=== PATIENT | female | born 2000 | race Two or more races ===

== ENCOUNTER 2020-12-10 10:23 | Outpatient (REF) | payer OTHER, SELFPAY ==
[2020-12-10 11:53] LABS: TSH reflex Free T4 1.16 uIU/mL (0.32-4.0)
[2020-12-10 12:04] LABS: Alanine Aminotransferase 25 U/L (0-31); Albumin Level 4.1 g/dL (3.5-5.0); Alkaline Phosphatase 85 U/L (39-117); Anion Gap 11 (12-20); Aspartate Amino Transferase 16 U/L (5-31); Bilirubin Total 0.6 mg/dL (0.0-1.0); Blood Urea Nitrogen 9 mg/dL (9-16); Calcium 8.9 mg/dL (8.4-10.2); Carbon Dioxide 27 mmol/L (22-29); Chloride 103 mmol/L (96-108); Cholesterol 192 mg/dL; Estimated Glomerular Filt Rate > 60; Glucose Fasting 119 mg/dL (60-99); HDL Cholesterol 41 mg/dL; LDL Cholesterol Calculated 127 mg/dl; Potassium 4.3 mmol/L (3.3-5.1); Sodium 137 mmol/L (135-145); Total Protein 7.2 g/dL (6.5-8.0); Triglycerides 122 mg/dL
== END 2020-12-10 10:24 | disposition home or self-care (01) ==
LOC: HO.HMGCLDS 10:23
PROVIDERS: PCP Nurse Practitioner Family; Visit Provider Nurse Practitioner Family
DX: Z00.00 Encounter for general adult medical examination without abnormal findings (principal)
CPT/HCPCS: 36415; 80053; 80061; 84443

== ENCOUNTER 2021-08-16 09:53 | Outpatient (REF) | payer OTHER, SELFPAY ==
[2021-08-16 18:06] LABS: HCG Quantitative 19057 mIU/mL
== END 2021-08-16 09:54 | disposition home or self-care (01) ==
LOC: HO.LAB 09:53
PROVIDERS: PCP Nurse Practitioner Family; Visit Provider Advanced Practice Midwife
DX: O26.851 Spotting complicating pregnancy, first trimester (principal); Z90.721 Acquired absence of ovaries, unilateral
CPT/HCPCS: 36415; 81025; 84702; 86850; 86900; 86901; 99212

== ENCOUNTER 2021-08-17 14:53 | Outpatient (REF) | payer OTHER, SELFPAY ==
--- NOTE | ~2021-08-17 | US_ITS ---
EXAMINATION: US OBSTETRICAL ULTRASOUND CLINICAL INFORMATION: Vomiting complicating , first trimester COMPARISON: None. LMP: 07/03/2021. Gestational age by maternal dates is 6 weeks 3 days. Estimated date of delivery by maternal dates is 04/09/2022. TECHNIQUE: Transabdominal first trimester OB ultrasound FINDINGS: There is a single intrauterine gestational sac with visible yolk sac, embryo/fetus, and cardiac activity. There is no significant subchorionic hemorrhage or hematoma. HR: 110 beats per minute. CRL (crown rump length): 0.5 cm (6 weeks 2 days +/- 4 days). MEJIA (estimated date of delivery): 04/10/2022 +/- 4 days. MATERNAL ADNEXA: The right maternal ovary has been removed. The left maternal ovary measures 2.6 x 2.3 x 2.2 cm. There is a small 1.5 x 1.1 x 1 cm left ovarian cyst There is no significant maternal adnexal mass. There is a small amount of fluid in cul-de-sac.. US/US OB pelvic and transvaginal IMPRESSION: 1. Single intrauterine gestation with ultrasound gestational age of 6 weeks 2 days +/- 4 days. 2. Estimated date of delivery is 04/10/2022 +/- 4 days. 3. No maternal adnexal mass or pelvic ascites.
== END 2021-08-17 14:54 | disposition home or self-care (01) ==
LOC: HO.US 14:53
PROVIDERS: PCP Nurse Practitioner Family; Visit Provider Advanced Practice Midwife
DX: O26.851 Spotting complicating pregnancy, first trimester (principal)
CPT/HCPCS: 76801; 76817

== ENCOUNTER → 2021-08-27 13:58 | Outpatient (BNVA) | payer OTHER, SELFPAY | PROVIDERS: PCP Nurse Practitioner Family; Visit Provider Advanced Practice Midwife ==

== ENCOUNTER 2021-09-21 15:15 | Outpatient (REF) | payer OTHER, SELFPAY ==
--- NOTE | ~2021-09-21 | US_ITS ---
EXAMINATION: US OBSTETRICAL ULTRASOUND CLINICAL INFORMATION: Spotting complicating , first trimester. COMPARISON: None. LMP: 07/03/2021. Gestational age by maternal dates is 11 weeks and 3 days. Estimated date of delivery by maternal dates is 04/09/2022. TECHNIQUE: Transabdominal ultrasound imaging of the pelvis was performed. FINDINGS: There is a single intrauterine gestational sac with visible yolk sac, embryo/fetus, and cardiac activity. There is no significant subchorionic hemorrhage or hematoma. HR: 170 beats per minute. CRL (crown-rump length): 4.41 cm ( +/- 4 days, corresponding to 11 weeks and 2 days). MEJIA (estimated date of delivery): 04/10/2022 +/- 4 days. MATERNAL ADNEXA: The right maternal ovary was surgically removed. The left maternal ovary was surgically removed. There is no significant maternal adnexal mass. No maternal pelvic ascites. US/US OB <= 14 weeks fetus IMPRESSION: 1. Single live intrauterine gestation with ultrasound gestational age of 11 weeks, 2 days +/- 4 days. 2. Estimated date of delivery is 04/10/2022 +/- 4 days. 3. No maternal adnexal mass or pelvic ascites.
== END 2021-09-21 15:16 | disposition home or self-care (01) ==
LOC: HO.US 15:15
PROVIDERS: PCP Nurse Practitioner Family; Visit Provider Advanced Practice Midwife
DX: O26.851 Spotting complicating pregnancy, first trimester (principal)
CPT/HCPCS: 76801

== ENCOUNTER 2022-07-07 09:36 | Emergency (ER) | payer OTHER, SELFPAY ==
--- NOTE | ~2022-07-07 | CT_ITS ---
EXAMINATION: CT ABDOMEN AND PELVIS WITHOUT CONTRAST CLINICAL INFORMATION: Right-sided flank pain COMPARISON: None TECHNIQUE: Multidetector volumetric imaging was performed from the superior aspect of the liver through the pubic symphysis. Sagittal and coronal reformatted images were obtained on the technologist's workstation. This CT examination was performed using dose optimization techniques as appropriate, variously including the following: *Automated exposure control *Adjustment of mA and/or kV according to patient size (this includes techniques or standardized protocols for targeted exams where dose is matched to indication/reason for exam; i.e. extremities or head) *Use of iterative reconstruction technique DLP: 755 mGy-cm FINDINGS: LUNG BASES: The visualized lung bases are unremarkable. LIVER, GALLBLADDER, AND BILIARY TREE: The liver is mildly enlarged at 18 cm and demonstrates decreased attenuation consistent with hepatic steatosis. No focal hepatic lesion or biliary ductal dilatation is present. The gallbladder is unremarkable with no evidence of radiopaque gallstones, gallbladder wall thickening, or obvious pericholecystic inflammatory changes. PANCREAS: Unremarkable. SPLEEN: Spleen mildly enlarged at 12.8 cm in greatest transverse dimension. ADRENAL GLANDS: Unremarkable. KIDNEYS AND URETERS: There is an 9 x 4 x 6 mm obstructing right distal ureteral calculus with associated dilatation of the ureter and right intrarenal collecting system. This stone measures 1272 Hounsfield units. Perinephric stranding is present around the kidney and ureter. There is a 2 mm lower pole nonobstructing calyceal stone on the right with no other stones are seen in the right kidney. No right renal masses are present. On the left, there is at least one punctate 2 mm nonobstructing mid pole calculus present. No left-sided hydronephrosis, ureteral calculi or renal masses are seen. BLADDER: Unremarkable. GASTROINTESTINAL TRACT: The small and large bowel are unremarkable. The appendix is unremarkable. ABDOMINAL WALL: No significant hernia is appreciated. LYMPH NODES: Shotty retroperitoneal lymph nodes are seen but there is no adenopathy. VASCULAR: Unremarkable. PELVIC VISCERA: Unremarkable. OSSEOUS STRUCTURES: Unremarkable. CT/CT abdomen pelvis wo IV con IMPRESSION: * 9 x 4 x 6 mm distal right obstructing calculus with hydronephrosis. * Punctate nonobstructing calculi bilaterally. * Incidentally noted mildly enlarged fatty liver with mild splenomegaly. Fleischner guidelines were followed.
[2022-07-07 09:38] VITALS: BP 149/82; PULSE 100; RESP 18; TEMP 36.9; O2SAT 98; BMI 39.9
[2022-07-07 10:03] LABS: Appearance Urine Clear; Color Urine Yellow; Glucose Urine UA Negative (Negative); Leukocyte Esterase Urine Moderate (2+) (Negative); Nitrite Urine Negative (Negative); Specific Gravity - Urine >= 1.030 (1.005-1.025); UMIC TRIGGER UACC YES; Urine Blood Negative (Negative); Urine Ketones Negative (Negative); Urine Protein Trace mg/dL (Neg-Trace)
[2022-07-07 10:05] LABS: UPreg QC Valid YES; Urine Pregnancy NEGATIVE (NEGATIVE)
[2022-07-07 10:06] LABS: Bacteria Urine 1+ (None Seen); Hyaline Casts Urine 0-2 /LPF (0-2); UACC Culture Trigger YES
--- NOTE | 2022-07-07 15:10 | ED.FEMALEGU ---
HPI - Female Genitourinary General Chief complaint: Urogenital-Female Stated complaint: Kidney Stone pain Time Seen by Provider: 07/07/22 12:58 Source: patient Mode of arrival: ambulatory Limitations: no limitations History of Present Illness HPI Narrative: 21-year-old female presenting with intermittent right flank pain since last night. Patient also reporting nausea, and urinary frequency and hesitancy, denies dysuria, hematuria. Patient states the pain started suddenly last night, is intermittent and severe. Patient has history of kidney stones 3 months ago while she was 35 weeks , leading to hospitalization and induction of labor. Multiple stones were noted on CT scan at that time. Patient receive another CT scan 1 month ago for similar symptoms where a 7 mm stone was noted. Symptoms had resolved since then. Reports taking 1 g of Tylenol this morning which has helped manage her pain. Denies headache, dizziness, chest pain, shortness breath, cough, nausea, vomiting, diarrhea, weakness, change in appetite. Patient is currently . MD elicited complaint: flank pain Onset (ago): hour(s) Location of symptoms: flank Severity: severe Female Urogenital Radiation: R Flank Severity scale (1-10): 9 Quality of pain: sharp Consistency: intermittent Urinary symptoms: Frequency Exacerbating factors: none Associated symptoms: nausea Treatment prior to arrival: acetaminophen Sexual activity: Yes Patient : No Related Data Previous Rx's Medication Instructions Recorded vitamin with calcium 1 tab PO DAILY PRN VITAMIN #30 tabs 08/16/21 no.72-iron 27 mg-folic acid 1 mg tablet ( Vitamins Plus Low Iron) omeprazole 20 mg capsule,delayed 20 mg PO DAILY 90 days #90 caps 04/19/22 release alprazolam 0.25 mg tablet 0.25 mg PO BEDTIME PRN sleep #5 05/12/22 tabs ketorolac 10 mg tablet 10 mg PO Q8H #14 tabs 07/07/22 nitrofurantoin 100 mg PO BID 7 days #14 caps 07/07/22 monohydrate/macrocrystals 100 mg capsule (Macrobid) ondansetron 4 mg disintegrating 4 mg PO Q8H #14 tabs 07/07/22 tablet oxycodone 5 mg tablet 5 mg PO Q6H PRN pain #14 tabs 07/07/22 Allergies Allergy/AdvReac Type Severity Reaction Status Date / Time No Known Allergies Allergy Verified 04/19/22 11:57 Review of Systems Review of Systems: Constitutional : No Fever, No Chills, No Night Sweats, No Fatigue, No Malaise Cardiovascular : No Chest Pain, No SOB Respiratory : No Cough, No Sputum, No Wheezing, No Dyspnea Gastrointestinal : + Nausea, No Vomiting, No Diarrhea, + abdominal Pain, No Hematochezia, No Melena Genitourinary : + flank pain, No irregular bleeding, No Dysuria, + Urinary Frequency, No Hematuria, No Urinary Incontinence Musculoskeletal : No joint pain, No Myalgias, No Joint Swelling Skin : No Skin Lesions, No rash Neuro : No Weakness, No Numbness, No Paresthesias, No Loss of Consciousness, No Dizziness, No Headache Heme/Lymph: No Lymphadenopathy Endocrine : No Temperature Intolerance Yes all other systems are reviewed and are negative [facility] Past Medical History Attestation statement: The following information was validated with the patient. Source: old records reviewed, obtained from family and nursing notes reviewed Medical History Prediabetes Renal calculi Surgical History History of oophorectomy, unilateral No pertinent past surgical history Family History Family History Father No problems noted. Mother No problems noted. Paternal Grandmother Breast cancer Social History Social History Housing: Apartment Alcohol intake: never Patient Tobacco Use Status: Never used Tobacco e-Cigarette/Vaping Use: Never Used Second Hand Smoke Exposure: No Advance Directives: No Advance Directives Information Provided: No Patient : No service: No Current occupational status: employed Current occupation: [employer] Current occupational exposures/hazards: No Cognitive needs: No Hearing needs: No Vision needs: No Physical Exam Vital Signs: Vital Signs: Last Vital Signs Temp 98.4 F 07/07/22 09:38 Pulse 100 07/07/22 09:38 Resp 18 07/07/22 09:38 BP 149/82 H 07/07/22 09:38 Pulse Ox 98 07/07/22 09:38 O2 Del Method 09/15/22 09:38 BMI result Body Mass Index 39.9 vital signs have been reviewed as normal and appeared to be correct. Blood pressure 149/82. Heart rate normal. Respiration rate normal. Temperature normal. Oxygen saturation normal. Appearance: Alert. Oriented X3. No acute distress. Head: Normal external exam. Normocephalic. Eyes: PERRLA. EOMI. Conjunctiva and sclera normal. Eyelids normal. ENT: Pharynx normal. Moist mucous membranes. No trismus noted. No drooling noted. No muffled voice noted. Neck: Normal inspection. Neck supple. FROM. No adenopathy. No meningeal signs. CVS: Normal heart rate and rhythm. Heart sound normal. No murmurs noted. Pulses normal throughout. Respiratory: No respiratory distress. Painless inspiration. Breath sounds normal. No wheezes/rales/rhonchi noted. Chest nontender. No accessory muscle usage noted or decreased air movement noted. Abdomen: +right flank tenderness to deep palpation. Soft and nontender. Nondistended. No guarding. No rigidity. Bowel sounds normal in all 4 quadrants. No distention noted. No organomegaly noted. No visible injury noted. No rebound tenderness. Negative Rovsing sign. Negative obturator's sign. Negative psoas sign. Negative Fishman sign. Back: No CVA tenderness. Full range of motion noted. Skin: Skin warm and dry. Normal skin color. Normal skin turgor. No rashes/lesions/lacerations noted. Extremities: Extremities exhibit normal range of motion. Extremities nontender. Neuro: Oriented X 3. No motor deficit. No sensory deficit. Reflexes normal. Normal steady gait. CN's II-XII intact bilaterally? Course Course Course Narrative: 21-year-old female with PMH of nephrolithiasis presenting with intermittent right flank pain since last night with associtated nausea and urinary frequency and hesitancy. On exam, patient afebrile, VSS, tender to deep palpation on right flank however no CVA tenderness. UA significant for specific gravity 1.030, moderate leuk esterase, high RBC, high WBC. Consistent with urinary tract infection. CT abdomen pelvis wo IV con IMPRESSION: 9 x 4 x 6 mm distal right obstructing calculus with hydronephrosis. *? Punctate nonobstructing calculi bilaterally. *? Incidentally noted mildly enlarged fatty liver with mild splenomegaly. Urology consult at after findings of CT abdomen pelvis showed large obstructing calculus with hydronephrosis. Reevaluation(s) Reevaluation #1: - I discussed this case with Dr. Guzman he reported that the patient can go home although she would have to stay NPO after midnight. He reports that his office will call her tomorrow morning so we can do a procedure tomorrow afternoon. Although he also recommended if she was having pain issues we could admit. I did offer both to the patient patient would rather go home. Reports that her pain is in control with Motrin and Tylenol. She has kids at home that she would rather just go home to. She reports that she will stay NPO after midnight and she will await the call from Dr. Guzman's office. Will also send home with antibiotics for UTI. I explained to her that if she is not on any narcotics or any antibiotics taken past into her breast milk therefore I explained to her that she should not do any breast feeding for the next 1-2 weeks. She reports that that is fine. Otherwise instructed to return if any new or worsening symptoms and to await the call from Dr. Guzman tomorrow morning to stay NPO at midnight. Patient understands agrees with this plan. Time: 16:02 MDM - Female Genitourinary Medical Records Attestation: I reviewed the patient's medical records. Lab Data Attestation: I reviewed the patient's lab results. Labs: Lab Results 07/07/22 07/07/22 Range/Units 09:48 09:48 Urine Color Yellow Urine Appearance Clear Urine pH 7.0 (5.0-9.0) Ur Specific [place] >= 1.030 H (1.005-1.025) Urine Protein Trace (Neg-Trace) mg/dL Urine Glucose (UA) Negative (Negative) mg/dL Urine Ketones Negative (Negative) mg/dL Urine Blood Negative (Negative) Urine Nitrite Negative (Negative) Ur Leukocyte Esterase Moderate (2+) H (Negative) Urine RBC 3-5 H (0-2) /HPF Urine WBC 11-20 H (0-5) /HPF Ur Squamous Epith Cells 6-10 (0-2) /HPF Urine Bacteria 1+ (None Seen) Hyaline Casts 0-2 (0-2) /LPF Urine Test NEGATIVE (NEGATIVE) Imaging Data CT scan of abdomen and pelvis without IV contrast: Attestation: I personally reviewed and interpreted this imaging study as follows: Radiologist's impression: FINDINGS: LUNG BASES: The visualized lung bases are unremarkable.? LIVER, GALLBLADDER, AND BILIARY TREE: The liver is mildly enlarged at 18 cm and demonstrates decreased attenuation consistent with hepatic steatosis. No focal hepatic lesion or biliary ductal dilatation is present. The gallbladder is unremarkable with no evidence of radiopaque gallstones, gallbladder wall thickening, or obvious pericholecystic inflammatory changes.? PANCREAS: Unremarkable.? SPLEEN: Spleen mildly enlarged at 12.8 cm in greatest transverse dimension.? ADRENAL GLANDS: Unremarkable.? KIDNEYS AND URETERS: There is an 9 x 4 x 6 mm obstructing right distal ureteral calculus with associated dilatation of the ureter and right intrarenal collecting system. This stone measures 1272 Hounsfield units. Perinephric stranding is present around the kidney and ureter. There is a 2 mm lower pole nonobstructing calyceal stone on the right with no other stones are seen in the right kidney. No right renal masses are present. On the left, there is at least one punctate 2 mm nonobstructing mid pole calculus present. No left-sided hydronephrosis, ureteral calculi or renal masses are seen.? BLADDER: Unremarkable.? GASTROINTESTINAL TRACT: The small and large bowel are unremarkable. The appendix is unremarkable.? ABDOMINAL WALL: No significant hernia is appreciated.? LYMPH NODES: Shotty retroperitoneal lymph nodes are seen but there is no adenopathy. VASCULAR: Unremarkable. PELVIC VISCERA: Unremarkable.? OSSEOUS STRUCTURES: Unremarkable.? CT/CT abdomen pelvis wo IV con IMPRESSION: *? 9 x 4 x 6 mm distal right obstructing calculus with hydronephrosis. *? Punctate nonobstructing calculi bilaterally. *? Incidentally noted mildly enlarged fatty liver with mild splenomegaly. ? Fleischner guidelines were followed. Critical Care Time Critical Care Time Critical Care Time: Yes Total Critical Care Time: 60 Attestation: I personally attest to this time spent taking care of the patient Discharge Plan Discharge Clinical Impression: Calculus (=stone), Hydronephrosis, UTI (urinary tract infection) Patient Disposition: Home, Self-Care Instructions: Kidney Stones (ED), Hydronephrosis (ED) Additional Instructions: STAY WITHOUT EATING ANYTHING STARTING AT MIDNIGHT TONIGHT 07/07/2022 DR. GUZMAN'S OFFICE WILL CALL YOU TOMORROW TO DO SURGERY AN OUTPATIENT BASIS Prescriptions: New oxycodone 5 mg tablet 5 mg PO Q6H PRN (Reason: pain) Qty: 14 0RF Rx Instructions: Partial Fill upon patient request. nitrofurantoin monohyd/m-cryst [Macrobid] 100 mg capsule 100 mg PO BID 7 Days Qty: 14 0RF Rx Instructions: must administer with a meal/food ketorolac 10 mg tablet 10 mg PO Q8H Qty: 14 0RF Rx Instructions: First dose given in the ED are by IM patient tolerated well ondansetron 4 mg tablet,disintegrating 4 mg PO Q8H Qty: 14 0RF No Action alprazolam 0.25 mg tablet 0.25 mg PO BEDTIME PRN (Reason: sleep) Qty: 5 0RF omeprazole 20 mg capsule,delayed release(DR/EC) 20 mg PO DAILY 90 Days Qty: 90 0RF Vitamin Plus Low Iron 27 mg iron- 1 mg tablet 1 tab PO DAILY PRN (Reason: VITAMIN) Qty: 30 1RF Referrals: Sathya Guzman MD [Physician] - 1 day (STAY WITHOUT EATING ANYTHING STARTING AT MIDNIGHT TONIGHT 07/07/2022 DR. GUZMAN'S OFFICE WILL CALL YOU TOMORROW TO DO SURGERY AN OUTPATIENT BASIS ) Ignacio Bravo, [employer]- [Primary Care Provider] - 2 days Stand Alone Forms: Work/School Release Print Language: Bangladeshi
[2022-07-07] MEDS: Ketorolac Tromethamine 60 MG/2 ML VIAL IM (16:48)
== END 2022-07-07 18:02 | disposition home or self-care (01) ==
PROVIDERS: Emergency Provider Emergency Medicine; PCP Nurse Practitioner Family
DX: N20.0 Calculus of kidney (principal); N13.30 Unspecified hydronephrosis; N39.0 Urinary tract infection, site not specified; Z79.899 Other long term (current) drug therapy
CPT/HCPCS: 74176; 81001; 81003; 81025; 87086; 96372; 99284; J1885

== ENCOUNTER 2022-07-08 15:27 | Day surgery (SDC) | payer OTHER, SELFPAY ==
--- NOTE | ~2022-07-08 | FL_ITS ---
EXAMINATION: XR FLUOROSCOPY WITH IMAGES CLINICAL INFORMATION: Right hydronephrosis and hydroureter secondary to distal right ureteral calculus. COMPARISON: CT abdomen and pelvis noncontrast 07/07/2022 TECHNIQUE: Fluoroscopy performed by Dr. Sathya Guzman. Fluoroscopy time: 29 seconds. Cumulative Dose: 11.65 mGy. Images: 2. FINDINGS: There is contrast in the lower right ureter with a small oval intraluminal filling defect corresponding to the distal ureteral calculus on CT. No extravasation of contrast. Subsequent fluoroscopic view demonstrates distal end of a right ureteral stent. FL/FL guidance in OR IMPRESSION: Fluoroscopy for urologic procedure.
[2022-07-08 15:45] VITALS: BP 141/82; PULSE 98; RESP 18; TEMP 37.1; O2SAT 98
--- NOTE | 2022-07-08 15:47 | HO.ANESPROP2 ---
[facility] Active Problems Active Problems: All Active Problems (Updated 07/08/22 @ 00:01 by Rosibel Lanny) Gestational diabetes mellitus (Acute) Upper respiratory tract infection (Acute) Spotting affecting in first trimester (Acute) High risk due to history of previous obstetrical problem (Acute) (Acute) Elevated fasting blood sugar (Acute) Physical exam (Acute) Past Medical History Medical History Prediabetes Renal calculi Family History Family History Father No problems noted. Mother No problems noted. Paternal Grandmother Breast cancer Surgical History Surgical History History of oophorectomy, unilateral No pertinent past surgical history History of Problems with Anesthesia: No Social History Social History Housing: Apartment Alcohol intake: never Patient Tobacco Use Status: Never used Tobacco e-Cigarette/Vaping Use: Never Used Second Hand Smoke Exposure: No Use of substances other than those prescribed or required for medical reasons: No Are you DNR?: No Advance Directives: No Advance Directives Information Provided: Yes Patient : No : Yes service: No Current occupational status: employed Current occupation: [employer] Current occupational exposures/hazards: No Cognitive needs: No Hearing needs: No Vision needs: No Meds Allergies Allergy/AdvReac Type Severity Reaction Status Date / Time No Known Allergies Allergy Verified 04/19/22 11:57 Exam Exam Date and Time: July 08, 2022 1547 Airway Mallampati Class: II TM Dist: >3cm Neck ROM: Full Loose/Missing/Broken Teeth: No Heart: RRR Lungs: CTA Assessment and Plan Assessment Anesthesia Assessment: Anesthesia Plan Discussed and Chart Reviewed Final Anesthetic Review History of Problems with Anesthesia: No NPO: Yes ASA Class: II and III Final Preanesthetic Review: Meds/Allgs Chart Reviewed, Consent Obtained/Reviewed and Anes Risks/Benef Reviewed Patient Risk: Low Procedure Risk: Low Anesthetic Plan Anesthetic Plan: GA Disposition: Standard PACU
[2022-07-08 15:50] VITALS: BMI 39.9
--- NOTE | 2022-07-08 16:27 | PM.UROCN ---
History of Present Illness Consult details Consult date: 07/07/22 Narrative: Consulting complaint distal right ureteric stone 21-year-old female Presents to emergency room with right-sided flank pain Had previous investigation for stones when approximately 3-4 months ago Had been told she had stones and then on subsequent follow-up imaging had been told the stone had passed Re onset of right-sided flank pain with nausea in the past day Imaging - There is an 9 x 4 x 6 mm obstructing right distal ureteral calculus with associated dilatation of the ureter and right intrarenal collecting system. CT scan reviewed personally Large stone distal portion right ureter Discussed intervention with ureteroscopy, laser lithotripsy and stent placement She is aware the risks and benefits and would like to proceed Review of Systems Constitutional: Constitutional: Denies chills and Denies fever(s) Cardiovascular: Cardiovascular: Reports no additional cardiovascular complaints and Denies syncope Respiratory: Respiratory: Denies cough Gastrointestinal: Gastrointestinal: Denies abdominal pain and Denies heartburn Genitourinary: Genitourinary: Reports as per HPI and Denies change in libido Neurologic: Denies syncope Psychiatric: Psychiatric: Denies change in libido Endocrine: Endocrine: Denies change in libido [facility] Past Medical History Medical History Prediabetes Renal calculi Family History Family History Father No problems noted. Mother No problems noted. Paternal Grandmother Breast cancer Surgical History Surgical History History of oophorectomy, unilateral No pertinent past surgical history Social History Social History Housing: Apartment Alcohol intake: never Patient Tobacco Use Status: Never used Tobacco e-Cigarette/Vaping Use: Never Used Second Hand Smoke Exposure: No Use of substances other than those prescribed or required for medical reasons: No Are you DNR?: No Advance Directives: No Advance Directives Information Provided: Yes Patient : No : Yes service: No Current occupational status: employed Current occupation: [employer] Current occupational exposures/hazards: No Cognitive needs: No Hearing needs: No Vision needs: No Meds Allergies Allergy/AdvReac Type Severity Reaction Status Date / Time No Known Allergies Allergy Verified 04/19/22 11:57 Active Medications: Current Medications Acetaminophen (Acetaminophen 325 Mg Tablet) 650 mg PO ONCE PRN PRN Reason: Pain, Mild (Pain Scale 1-3) Albuterol Sulfate (Albuterol Sulfate (0.083%) 2.5 Mg/3 Ml Vial.Neb) 2.5 mg INHALE ONCE PRN PRN Reason: Wheezing Fentanyl (Fentanyl Citrate/Pf 100 Mcg/2 Ml Vial) 25 mcg IVPUSH Q5M PRN; Protocol PRN Reason: Pain, Moderate (Pain Scale 4-6 Ondansetron HCl (Ondansetron Hcl 4 Mg/2 Ml Vial) 4 mg IVPUSH ONCE PRN PRN Reason: Nausea and Vomiting Oxycodone HCl (Oxycodone Hcl Immed Release 5 Mg Tablet) 5 mg PO ONCE PRN PRN Reason: Pain, Severe (Pain Scale 7-10) Physical Exam Vital Signs: Vital Signs: Last Vital Signs Temp 98.7 F 07/08/22 15:45 Pulse 98 07/08/22 15:45 Resp 18 07/08/22 15:45 BP 141/82 H 07/08/22 15:45 Pulse Ox 98 07/08/22 15:45 O2 Del Method 07/08/22 15:45 BMI result Body Mass Index 39.9 Const: General: cooperative, healthy appearing, comfortable and no acute distress Orientation/consciousness: patient oriented x3 HEENT: Face and sinus: Yes normal facial exam Mouth: moist mucous membranes Neck: Neck: Yes normal visual inspection, Yes full ROM and Yes trachea midline Chest: Chest palpation & inspection: normal inspection of the chest Resp: Effort & Inspection: normal respiratory effort, able to speak in complete sentences and no respiratory distress GI: Inspection: Yes normal to inspection Back/Spine/Pelvis: Cervical Spine: normal cervical lordosis Thoracic/Lumbar Spine: thoracic and lumbar spine normal to inspection Skin: General skin exam: no rashes or lesions noted Neuro: General: patient oriented x3, gait normal, tone normal and moves all extremities Extrem: General: Yes normal to inspection and Yes capillary refill normal Results Labs Labs: All other labs normal. Assessment and Plan (1) Right distal ureteral calculus: Status: Acute Plan Ureteroscopy We discussed the nature of the decision and reasonable alternatives for performing ureteroscopy. Options such as medical therapy were discussed. Interventions include chemical dissolution, ESWL, ureteroscopy with laser lithotripsy and stent placement, PCNL. The relative uncertainties and benefits related to each alternate procedure were adequately discussed. General surgical risks including, but not limited to - pain, bleeding, infection, myocardial infarction, pulmonary embolus, deep vein thrombosis and cerebrovascular accident which may result in further hospitalization were discussed. Full disclosure of the procedure as well as all major risks, benefits and complications were discussed including but not limited to damage to the urethra, bladder and kidney infection, damage to the ureter, stent migration or malposition, scarring to the renal pelvis, remnant stone fragments, subsequent stone passage with need for secondary procedures. The overall secondary procedure rate is approximately 10-15%. The overall clearance rate is approximately 90-95%. Success of the procedure in the short-term does not necessarily guarantee that long-term success will be maintained. Suitable follow up will need to be maintained. The patient showed understanding of discussion and wishes to proceed with - cystoscopy, retrograde, ureteroscopy, possible lithotripsy/stone basketing and stent on the right side Procedures Date of Service Date of Service: 07/07/22
--- NOTE | 2022-07-08 16:30 | P.HPSUR_ITS ---
Pre-Procedural Eval Section A Date of Service: 07/08/22 The patient is an INPATIENT: No Changes since office visit: No Cold of Flu in the past 2 weeks, No New Medical Problems, No Changes in Medication and No Patient answered all questions The History & Physical has been completed within 30 days and I have reviewed it.: Yes Section B Chief Complaint: Calculus of kidney Details of Present Illness: Distal right ureteric stone Relevant Family History (Specify if Yes): No Relevant Social History: None Present Medications: see Short Stay Collaborative assessment Medical History: No relevant PMH History of Previous Operations: No relevant previous surgery Allergies: Allergies Allergy/AdvReac Type Severity Reaction Status Date / Time No Known Allergies Allergy Verified 04/19/22 11:57 Review of Systems Sugical H&P ROS: Negative: Constitution, Cardiovascular, Respiratory, Neurological, Psychiatric, Hem-Onc, Allergic/Immunologic, Gastrointestinal, Genitourinary, Musculoskeletal, Integumentary, Endocrine and Eyes/Ears/Nose/Throat Exam Surgical H&P Exam: Normal: HEENT, Normal: Heart, Normal: Lungs, Normal: Ex tremities, Normal: Abdomen, Normal: Skin and Normal: Neurological Plan Diagnosis/Plan: Unchanged (Right retrograde right ureteroscopy with laser lithot ripsy and stent placement) I have reviewed the history and physical and performed a pertinent physical examination on my patient. No changes have occurred unless specified.
--- NOTE | 2022-07-08 17:24 | W.PM.OPN ---
Operative Note Operative Note Date of Service: 07/08/22 Narrative: PreOperative Diagnosis: Right distal ureter impacted stone Post Operative Diagnosis: Right distal ureteric impacted stone Procedure: - cystoscopy, right retrograde - right dilatation of ureteric orifice under fluoroscopy - right rigid ureteroscopy, laser lithotripsy, stone basketing - right stent placement Surgeon: Dr Sathya Guzman Anesthesia: General Indications for procedure: Impacted 9 mm distal right ureteric stone. Previous evaluation with other urology who had told her the stone had passed. She presented to emergency room with pain in on CT scan was found to have an impacted right distal ureteric stone with hydroureteronephrosis. Procedure: After informed consent was verified patient was brought to the operating placed in supine position. Anesthesia was administered per protocol. Patient was placed in modified dorsal lithotomy position and prepped and draped in a sterile fashion. Safety pause time-out and side of surgery confirmed. Antibiotics confirmed. 22 [place] cystoscope was inserted per urethra. Bladder was normal in its entirety. Both ureteric orifices were in normal position. The right ureteric orifice was cannulated and a retrograde examination was performed. Filling defects seen in right distal ureter with proximal hydroureteronephrosis . A Sensor guidewire was placed up to the level of the renal pelvis under fluoroscopy. The rigid cystoscope was removed and a Lauren dilator used to dilate the right ureter under fluoroscopy. The rigid ureteral scope was placed alongside the wire. The stone was encountered in the distal portion of the ureter and had been imbedded into the wall of the ureter. Using a holmium laser the stone was broken into small pieces. Using a sure catch basket stone fragments were then removed into the bladder and for sampling. A 6 [place] African by 22 cm double-J stent was placed into the renal pelvis and bladder under a combination of fluoroscopy and direct visualization. The bladder was emptied. The patient tolerated the procedure well and was extubated in the operating room, and transferred in stable condition to the recovery area. Pathology: Stones Drains: Stent is above
[2022-07-08 17:34] VITALS: BP 135/85; PULSE 108; RESP 16; TEMP 36.9; O2SAT 100
[2022-07-08 17:39] VITALS: BP 116/78; PULSE 101; RESP 16; O2SAT 99
[2022-07-08 17:44] VITALS: BP 147/79; PULSE 105; RESP 16; O2SAT 99
[2022-07-08 17:49] VITALS: BP 125/74; PULSE 102; RESP 16; TEMP 36.4; O2SAT 99
[2022-07-08 18:04] VITALS: BP 119/58; PULSE 96; RESP 16; O2SAT 98
--- NOTE | 2022-07-08 18:29 | PC.NURSE ---
OOB DRESSING AT BEDSIDE. TO BATHROOM TO VOIDX1. NO COMPLAINTS OF NAUSEA.
[2022-07-14 11:32] LABS: Stone Source RIGHT URETERAL STONE
== END 2022-07-08 18:30 | disposition home or self-care (01) ==
PROVIDERS: PCP Nurse Practitioner Family; Visit Provider Urology
PROC: (CPT 52356; principal; 2022-07-08 16:30)
DX: N20.1 Calculus of ureter (principal); Z87.442 Personal history of urinary calculi; R73.03 Prediabetes; Z79.899 Other long term (current) drug therapy
CPT/HCPCS: 52356; 82365; 88300; C1758; C1769; C2617; J1100; J1956; J2250; J2405; J3010; Q9967

== ENCOUNTER → 2022-07-15 10:57 | Outpatient (BNVA) | payer OTHER, SELFPAY | PROVIDERS: PCP Nurse Practitioner Family; Visit Provider Urology | DX: N20.0 Calculus of kidney (principal) | CPT/HCPCS: 52310 ==

== ENCOUNTER 2022-11-05 09:39 | Outpatient (REF) | payer OTHER, SELFPAY ==
[2022-11-05 11:09] LABS: MANUAL DIFF FLAG NO
[2022-11-05 11:11] LABS: Appearance Urine Clear; Color Urine Yellow; Glucose Urine UA Negative (Negative); Leukocyte Esterase Urine Small (1+) (Negative); Nitrite Urine Negative (Negative); Specific Gravity - Urine 1.025 (1.005-1.025); UMIC TRIGGER UACC YES; Urine Blood Negative (Negative); Urine Ketones Negative (Negative); Urine Protein Negative (Neg-Trace)
[2022-11-05 11:16] LABS: Basophils Percent Auto 0.6 % (0-2); Eosinophils Absolute Auto 0.1 X10*3/uL (0.0-0.4); Eosinophils Percent Auto 1.8 % (0-4); Hematocrit 39.8 % (37.0-47.0); Imm Gran Abs Auto 0.01 X10*3/uL (0.00-0.03); Imm Gran Pct Auto 0.2 % (0.0-0.4); Lymphocytes Absolute Auto 2.2 X10*3/uL (1.2-4.9); Lymphocytes Percent Auto 32.9 % (20-40); Mean Corpuscular HGB Conc 32.7 g/dl (31.0-35.0); Mean Corpuscular Hemoglobin 28.3 pg (27.0-33.0); Mean Corpuscular Volume 86.7 fL (80.0-98.0); Mean Platelet Volume 10.3 fL (9.4-12.3); Monocytes Absolute Auto 0.4 X10*3/uL (0.1-1.2); Monocytes Percent Auto 5.6 % (2-11); Neutrophils Absolute Auto 3.9 x10*3/uL (2.0-8.3); Neutrophils Percent Auto 58.9 % (45-73); Platelet Count 324 X10*3/uL (160-400); Red Blood Count 4.59 X10*6/uL (4.20-5.50); Red Cell Distribution Width 11.7 % (11.0-16.0); White Blood Count 6.7 X10*3/uL (4.8-10.8)
[2022-11-05 11:17] LABS: Bacteria Urine Trace (None Seen); Hyaline Casts Urine 0-2 /LPF (0-2); RBC Urine 0-2 /HPF (0-2); UACC Culture Trigger YES; WBC Urine 0-5 /HPF (0-5)
[2022-11-05 11:32] LABS: Estimated Average Glucose 137 mg/dL; Hemoglobin A1c % 6.4 %
[2022-11-05 11:42] LABS: Alanine Aminotransferase 17 U/L (0-31); Albumin Level 4.1 g/dL (3.5-5.0); Alkaline Phosphatase 96 U/L (39-117); Anion Gap 10 (12-20); Aspartate Amino Transferase 14 U/L (5-31); Bilirubin Total 0.4 mg/dL (0.0-1.0); Blood Urea Nitrogen 12 mg/dL (9-16); Calcium 9.4 mg/dL (8.4-10.2); Carbon Dioxide 28 mmol/L (22-29); Chloride 105 mmol/L (96-108); Cholesterol 179 mg/dL; Estimated Glomerular Filt Rate > 60; Glucose Fasting 122 mg/dL (60-99); HDL Cholesterol 46 mg/dL; LDL Cholesterol Calculated 115 mg/dl; Potassium 4.1 mmol/L (3.3-5.1); Sodium 139 mmol/L (135-145); Total Protein 7.4 g/dL (6.5-8.0); Triglycerides 92 mg/dL
[2022-11-05 11:48] LABS: Influenza A PCR NEGATIVE (Negative); Influenza B PCR NEGATIVE (Negative); Resp Syncy Virus RNA Qual PCR NEGATIVE (Negative); SARS COV2 PCR INHOUSE NEGATIVE (Negative)
[2022-11-05 12:02] LABS: TSH reflex Free T4 0.66 uIU/mL (0.32-4.0)
== END 2022-11-05 09:40 | disposition home or self-care (01) ==
LOC: HO.HMGCLDS 09:39
PROVIDERS: Physician Assistant Medical; PCP Nurse Practitioner Family; Visit Provider Nurse Practitioner Family
DX: O24.419 Gestational diabetes mellitus in pregnancy, unspecified control (principal); O26.899 Other specified pregnancy related conditions, unspecified trimester; R05.9 Cough, unspecified
CPT/HCPCS: 0241U; 36415; 80053; 80061; 81001; 83036; 84443; 85025; 87086

== ENCOUNTER 2022-11-21 08:17 | Outpatient (REF) | payer OTHER, SELFPAY ==
--- NOTE | ~2022-11-21 | US_ITS ---
EXAMINATION: US RETROPERITONEAL LIMITED (RENAL ONLY) CLINICAL INFORMATION: Calculus of kidney. COMPARISON: CT abdomen and pelvis without contrast 07/07/2022. TECHNIQUE: Real-time imaging of the kidneys. FINDINGS: RIGHT KIDNEY: 10.4 x 5.5 x 5.5 cm (SAG x AP x TRV). The kidney is normal in size, contour, and echogenicity. Renal cortical thickness is normal. No focal parenchymal lesions or hydronephrosis. The previously seen hydronephrosis caused by an obstructing distal ureteral calculus is no longer present. There is a mid pole 4 mm echogenic focus consistent with a nonobstructing calculus. LEFT KIDNEY: 11.3 x 5.4 x 5.0 cm (SAG x AP x TRV). The kidney is normal in size, contour, and echogenicity. Renal cortical thickness is normal. No focal parenchymal lesions or hydronephrosis. There is a mid pole 2 mm echogenic focus consistent with a nonobstructing calculus. US/US renal BI IMPRESSION: Bilateral nonobstructing renal calculi. Similar findings were present on the prior CT scan. Resolved right-sided hydronephrosis.
== END 2022-11-21 08:18 | disposition home or self-care (01) ==
LOC: HO.HMGCX 08:17
PROVIDERS: PCP Nurse Practitioner Family; Visit Provider Urology
DX: N20.0 Calculus of kidney (principal)
CPT/HCPCS: 76775

== ENCOUNTER → 2022-12-13 08:30 | Outpatient (BNVA) | payer OTHER, SELFPAY | PROVIDERS: PCP Nurse Practitioner Family; Visit Provider Urology | DX: Z13.89 Encounter for screening for other disorder (principal) ==

== ENCOUNTER 2023-06-06 07:51 | Outpatient (REF) | payer OTHER, SELFPAY ==
--- NOTE | ~2023-06-06 | US_ITS ---
EXAMINATION: US RETROPERITONEAL LIMITED (RENAL ONLY) CLINICAL INFORMATION: Calculus of kidney. COMPARISON: Renal ultrasound 11/21/2022. CT abdomen and pelvis 07/07/2022. TECHNIQUE: Real-time imaging of the kidneys. FINDINGS: RIGHT KIDNEY: 9.6 x 5.2 x 6.0 cm (SAG x AP x TRV). The kidney is normal in size, contour, and echogenicity. Renal cortical thickness is normal. No focal parenchymal lesions or hydronephrosis. 0.3 x 0.2 x 0.3 cm nonobstructing calculus is seen in the lower pole. LEFT KIDNEY: 11.0 x 5.6 x 5.8 cm (SAG x AP x TRV). The kidney is normal in size, contour, and echogenicity. Renal cortical thickness is normal. No calculi or focal parenchymal lesions. No hydronephrosis. US/US renal BI IMPRESSION: 1. 0.3 cm nonobstructing calculus in the lower pole of the right kidney. 2. Normal appearance of the left kidney.
== END 2023-06-06 07:52 | disposition home or self-care (01) ==
LOC: HO.US 07:51
PROVIDERS: PCP Nurse Practitioner Family; Visit Provider Urology
DX: N20.0 Calculus of kidney (principal)
CPT/HCPCS: 76775

== ENCOUNTER 2023-06-21 13:57 | Outpatient (AMB) | payer OTHER, SELFPAY ==
--- NOTE | 2023-06-21 13:58 | MHC.OFFVIS ---
Intake Intake Visit Reasons: follow up/US Intake Note: Patient is present for Telephone Urology Med:Vitamin b6, Tamsulosin Antibiotic Allergy: None Blood Thinner: Aspirin [facility]acy:[facility] Allergies No Known Allergies Allergy (Verified 12/13/22 08:31) Medication List - Last Reconciled 06/21/23 by Sathya Guzman MD alprazolam 0.25 mg PO BEDTIME PRN aspirin 162 mg PO BEDTIME docusate sodium 100 mg PO BID PRN drospirenone (contraceptive) (Slynd) 1 tab PO DAILY ketorolac 10 mg PO Q8H nitrofurantoin monohyd/m-cryst 100 mg (Macrobid) 100 mg PO BID 7 days omeprazole 20 mg PO DAILY 90 days ondansetron 4 mg PO Q8H PNV,calcium 43-vyca-hipkt acid 27 mg iron- 1 mg ( Vitamins Plus Low Iron) 1 tab PO DAILY PRN pyridoxine (vitamin B6) 50 mg PO DAILY 90 days tamsulosin 0.4 mg PO DAILY HPI HPI Comments History of Present Illness Details Fatmata is a very pleasant female. She is a patient of Dr. Gordon. She is seen for the following urologic conditions - nephrolithiasis Telemedicine Evaluation 15 min Consultation Stumpwise Yash Video attempted Discussed ultrasound results Reduction in stone burden Continue with vitamin B6 Surveillance imaging 12 month follow-up Nephrolithiasis First-time stone former 07/14 Intervention - 07/14 R USR Composition - 07/14 - combination CaOx with carbonate 35% Imaging - 07/14 CT scan distal right 8 mm ureteric stone - 11/14 renal ultrasound 4 mm right, 2 mm left Therapeutic plan - hydration - interval imaging [facility] Medical History Prediabetes Renal calculi Surgical History History of oophorectomy, unilateral No pertinent past surgical history Family History Father No problems noted. Mother No problems noted. Paternal Grandmother Breast cancer Social History Housing: Apartment Alcohol intake: never Patient Tobacco Use Status: Never used Tobacco e-Cigarette/Vaping Use: Never Used Second Hand Smoke Exposure: No service: No Current occupational status: employed Current occupation: [employer] Current occupational exposures/hazards: No Cognitive needs: No Hearing needs: No Vision needs: No Review of Systems Const All systems reviewed & are unremarkable except as noted in HPI and below Reports no additional complaints Resp Reports no additional complaints GI Reports no additional complaints Reports as per HPI Musc Reports no additional complaints Physical Exam Telemedicine evaluation Appropriate responses Regular breathing rate and rhythm HEENT Head: Yes normal to inspection Ears: hearing grossly normal bilaterally Eyes General: appearance normal, both eyes and all related structures Neck Neck: Yes normal visual inspection Chest Chest palpation & inspection: normal inspection of the chest Resp Effort & Inspection: normal respiratory effort and able to speak in complete sentences Assessment & Plan Assessment & Plan (1) Nephrolithiasis: Code(s): N20.0 - Calculus of kidney Plan One year follow-up ultrasound Orders: Orders US renal BI 364 Days N20.0 - Calculus of kidney Medications: Refilled pyridoxine (vitamin B6) 50 mg PO DAILY 90 tabs 3RF 90 days N20.0 - Calculus of kidney Patient Instructions: Imaging studies, laboratory and physical exam results were discussed and reviewed in detail. No major barriers to patient understanding were identified. An opportunity to ask questions regarding the treatment plan was provided. All questions were answered. The patient expressed understanding and agreement with the above treatment plan. The patient is aware they should contact our office by phone for worsening of their current condition or the appearance of new urologic symptoms. Compliance is encouraged with any medications and followup testing that is ordered. It is a privilege to participate in the urologic care of your patient. If you have any questions or concerns regarding treatment for the above conditions, or other urologic issues, please do not hesitate to contact me. The office telephone contact is [phone]. This note is constructed using voice recognition software. While every effort has been made to ensure accuracy tire repairman errors may have been included. Yours sincerely, Dr Sathya Guzman MD, [facility] - Urology Providers of Expert, Compassionate Care for the Genitourinary System Telehealth Telehealth Location of provider rendering services: practice address Location of patient: address on file Patient Identification confirmed using: Name, : Yes Telehealth method: video Patient verbally consented to treatment: Yes Patient verbally consented to billing insurance company: Yes Patient informed of any privacy concerns related to visit: Yes Coding Level of Care Code Est Pt Level 3 (26182) Diagnoses Nephrolithiasis N20.0
== END 2023-06-21 14:19 | disposition home or self-care (01) ==
LOC: HO.HUSH 13:57
PROVIDERS: PCP Nurse Practitioner Family; Visit Provider Urology
DX: N20.0 Calculus of kidney (principal)
CPT/HCPCS: 99213

== ENCOUNTER → 2023-06-21 13:57 | Outpatient (BNVA) | payer OTHER, SELFPAY | PROVIDERS: PCP Nurse Practitioner Family; Visit Provider Urology ==

== ENCOUNTER 2023-07-04 14:17 | Outpatient (AMB) | payer OTHER, SELFPAY ==
[2023-07-04 14:36] VITALS: BP 138/86; PULSE 76; O2SAT 98; BMI 42.1
--- NOTE | 2023-07-04 14:36 | A.OFFPC_ITS ---
Vital Signs 07/04/23 14:36 Height 4 ft 11 in Weight 208 lb 6 oz BMI 42.1 BP 138/86 Blood Pressure Location Lt brachial Position Sitting Pulse 76 Pulse Source Pulse Oximeter Pulse Oximetry (%) 98 Oxygen Delivery Method Room Air Intake Visit Reasons: Back pain/needs letter for stand up desk Allergies No Known Allergies Allergy (Verified 07/04/23 14:37) Tobacco use date assessed: 07/04/23 Dental Screening Dental Screen Date: 07/04/23 Did you have a dental visit in the last 12 months?: Yes Did you have a dental problem in the last 6 months where you did not have access to dental care?: No Was dental information given to patient?: Patient has dentist HPI Back pain/needs letter for stand up desk HPI Details Pt c/o lower transverse back pain. She reports that this is worse with sitting/standing for long periods. ? muscular issue. Recommended heat and stretching routine. Denies any signs of cauda equina or radiculopathy. [facility] Medical History Scoliosis Renal calculi Prediabetes Surgical History History of oophorectomy, unilateral No pertinent past surgical history Family History Father No problems noted. Mother No problems noted. Paternal Grandmother Breast cancer Social History Housing: Apartment Alcohol intake: never Patient Tobacco Use Status: Never used Tobacco e-Cigarette/Vaping Use: Never Used Second Hand Smoke Exposure: No service: No Current occupational status: employed Current occupation: [employer] Current occupational exposures/hazards: No Cognitive needs: No Hearing needs: No Vision needs: No Questionnaire Thrive Questionnaire Date Thrive assessed: 04/19/22 BRANDON-7 AMB Questionnaire BRANDON-7 Date BRANDON - 7 assessed: 04/19/22 Source: Developed by Drs. Eulalio Nicole, Khalida Martinez, Marshall Mcqueen and colleagues, with an educational natalee from [employer] Review of Systems Const Reports as per HPI Physical exam (Primary Care) Vital Signs: Last Vital Signs Pulse 76 07/04/23 14:36 BP 138/86 07/04/23 14:36 Pulse Ox 98 07/04/23 14:36 Oxygen Delivery Method Room Air 07/04/23 14:36 BMI result Body Mass Index 42.1 Tobacco/Smoking Status: Tobacco use Status Tobacco use date assessed 07/04/23 07/04/23 14:41 Patient Tobacco Use Status Never used Tobacco 07/04/23 14:41 e-Cigarette/Vaping Use Never Used 07/04/23 14:41 Thrive Assessment: Date of Thrive Assessment Date Thrive assessed 04/19/22 07/04/23 14:41 Const General: cooperative Nutritional Appearance: obese morbidly obese Orientation/consciousness: patient oriented x3 Resp Effort & Inspection: normal respiratory effort Auscultation: clear to auscultation bilaterally Cardio Rate: regular rate Rhythm: regular rhythm Heart sounds: S1 normal heart sound present and S2 normal heart sound present Back/Spine/Pelvis Other: able to heel and toe walk, with pt in supine position no lower back pain exacerbated with bilat knee to chest raises and bilat straight leg raises Neuro Other: + patellar reflexes, + DP pulses General: patient oriented x3 Psych Appearance: grossly normal Mental Status: mental status grossly normal Speech and movement: Normal speech and movement present Affect: normal affect Attitude: cooperative Thought process: Normal thought process present Thought content: Normal thought content present Insight: Good insight present (Psych) Judgement: Good judgement present (Psych) Assessment and Plan Assessment & Plan (1) Lower back pain: Code(s): M54.50 - Low back pain, unspecified Plan The patient agreed to the use of a medical insurance verifier for this encounter. Scribed for KIERAN Britt by Lashanda Jimenez medical insurance verifier, on 07/04/2023 at 15:00 EST. Coding Level of Care Code Est Pt Level 3 (69456) Diagnoses Lower back pain M54.50
== END 2023-07-04 15:58 | disposition home or self-care (01) ==
PROVIDERS: PCP Nurse Practitioner Family; Visit Provider Nurse Practitioner Family
DX: M54.50 Low back pain, unspecified (principal)
CPT/HCPCS: 99213

== ENCOUNTER 2023-08-05 09:01 | Outpatient (AMB) | payer OTHER, SELFPAY ==
--- NOTE | 2023-08-05 09:14 | MHC.OFFWIV ---
Intake Vital Signs 08/05/23 09:17 BP 130/74 Blood Pressure Location Lt brachial Position Sitting Pulse 120 H Pulse Source Pulse Oximeter Temp 98.8 F Temp Source Oral Pulse Oximetry (%) 97 Oxygen Delivery Method Room Air Intake Visit Reasons: EP-sore [id number] Intake Note: Patient is here for sore throat for 2-3dYS Patient Tobacco Use Status: Never used Tobacco Allergies No Known Allergies Allergy (Verified 08/05/23 09:15) Do you need a note to return to daycare/school/sports/work: Yes HPI HPI Comments History of Present Illness Details This is a 22-year-old female who presents to the office today for sick visit. Patient complaining of sore throat, mild fatigue, and chills but no fevers. She reports painful swallowing but denies difficulty swallowing. She denies throat swelling. She denies any congestion, rhinorrhea, or cough. COUNT INCLUDES THE [facility] Medical History Scoliosis Renal calculi Prediabetes Surgical History History of oophorectomy, unilateral No pertinent past surgical history Family History Father No problems noted. Mother No problems noted. Paternal Grandmother Breast cancer Social History Housing: Apartment Alcohol intake: never Patient Tobacco Use Status: Never used Tobacco e-Cigarette/Vaping Use: Never Used Second Hand Smoke Exposure: No service: No Current occupational status: employed Current occupation: [employer] Current occupational exposures/hazards: No Cognitive needs: No Hearing needs: No Vision needs: No Review of Systems Const All systems reviewed & are unremarkable except as noted in HPI and below Reports no additional complaints Eyes Reports no additional complaints ENT Reports no additional complaints Card Reports no additional complaints Resp Reports no additional complaints GI Reports no additional complaints Reports no additional complaints Musc Reports no additional complaints Skin/Breast Reports system reviewed and no additional complaints, except as documented Neuro Reports no additional complaints Psych Reports no additional complaints Endo Reports no additional complaints Lexa/Lymph Reports no additional complaints Aller/Immun Reports no additional complaints Physical Exam Const Other: Vital signs reviewed. Constitutional: Non-toxic appearing. No acute distress. Well-developed and well-nourished. HEENT: Normocephalic and atraumatic. Tympanic membranes without erythema, edema, or bulging bilaterally. External auditory canals without erythema or edema bilaterally. Moist mucous membranes. Posterior pharyngeal erythema and mild edema but no exudates. No peritonsillar mass or unilateral neck swelling. Skin: Warm and dry. No rashes or lesions noted. Neck: Full and painless range of motion. No cervical lymphadenopathy. Cardio: Tachycardia but regular rhythm. No lower extremity edema. No JVD. Pulmonary: No respiratory distress. No accessory muscle usage. No stridor or audible wheezing. No tripodding. Gastrointestinal: Soft, nontender, and nondistended in all 4 quadrants. Normoactive bowel sounds in all 4 quadrants. Genitourinary: No CVA tenderness. Musculoskeletal: Normal range of motion in joints throughout the body. No deformity or other signs of injury. Neuro: Alert and oriented x4. Cranial nerves 2-12 grossly intact. No focal deficits appreciated. Psych: Normal mood and affect. Assessment & Plan Assessment & Plan (1) Acute pharyngitis: Code(s): J02.9 - Acute pharyngitis, unspecified Plan: This is a 22-year-old female presenting to the office complaining of a sore throat. On physical examination, patient has posterior pharyngeal erythema and mild edema but no exudates. History and physical most consistent with acute pharyngitis, likely viral. Rapid strep test is negative. No evidence of peritonsillar mass/abscess, peritonsillar cellulitis, or, unilateral neck swelling. Patient's vital signs are stable with the exception of mild tachycardia, physical exam is otherwise benign, and patient is overall nontoxic appearing. Recommended symptomatic management including rest, increased fluids, advil/tylenol for pain/fever, salt water gargles, and over the counter throat lozenges. Patient advised to follow up here or go to the emergency room for worsening/persistent symptoms. Medications: New ibuprofen 800 mg PO Q8H PRN 60 tabs 0RF pain Coding Level of Care Code Est Pt Level 3 (46403) Diagnoses Acute pharyngitis J02.9
[2023-08-05 09:17] VITALS: BP 130/74; PULSE 120; TEMP 37.1; O2SAT 97
== END 2023-08-05 10:01 | disposition home or self-care (01) ==
PROVIDERS: PCP Nurse Practitioner Family; Visit Provider Physician Assistant Medical
DX: J02.9 Acute pharyngitis, unspecified (principal)
CPT/HCPCS: 87880; 99051; 99213

== ENCOUNTER 2023-10-09 08:47 | Outpatient (AMB) | payer OTHER, SELFPAY ==
--- NOTE | 2023-10-09 08:49 | MHC.PC.OV ---
Vital Signs 10/09/23 08:53 Height 4 ft 11 in Weight 205 lb 6 oz BMI 41.5 BP 110/78 Blood Pressure Location Rt brachial Position Sitting Pulse 70 Pulse Source Pulse Oximeter Pulse Oximetry (%) 95 Oxygen Delivery Method Room Air Intake Visit Reasons: PE Intake Note: Patient here for physical exam and would like to talk about her back pain that has been going on for a while. Pap is booked for 11/24/23 Allergies No Known Allergies Allergy (Verified 10/09/23 08:55) Medication List - Last Reconciled 10/09/23 by KIERAN Toure ibuprofen 600 mg PO Q6H PRN ibuprofen 800 mg PO Q8H PRN pyridoxine (vitamin B6) 50 mg PO DAILY 90 days Tobacco use date assessed: 07/04/23 Dental Screening Dental Screen Date: 10/09/23 Did you have a dental visit in the last 12 months?: Yes Did you have a dental problem in the last 6 months where you did not have access to dental care?: No Was dental information given to patient?: Patient has dentist HPI PE HPI Details Pt is here for a PE. Will order labs. Has a gynecology teacher for paps. Pt reports intermittent chest discomfort over the last few days. She reports being very anxious. Will do an EKG in office. Refuses flu vaccine. [facility] Medical History Scoliosis Renal calculi Prediabetes Surgical History History of oophorectomy, unilateral No pertinent past surgical history Family History Father No problems noted. Mother No problems noted. Paternal Grandmother Breast cancer Social History Housing: Apartment Alcohol intake: never Patient Tobacco Use Status: Never used Tobacco e-Cigarette/Vaping Use: Never Used Second Hand Smoke Exposure: No service: No Current occupational status: employed Current occupation: [employer] Current occupational exposures/hazards: No Cognitive needs: No Hearing needs: No Vision needs: No Questionnaire PHQ-9 Over the last 2 weeks, how often have you been bothered by any of the following problems? 1. Little interest or pleasure in doing things: not at all 2. Feeling down, depressed, or hopeless: not at all 3. Trouble falling or staying asleep, or sleeping too much: not at all 4. Feeling tired or having little energy: not at all 5. Poor appetite or overeating: not at all 6. Feeling bad about yourself - or that you are a failure or have let yourself or your family down: not at all 7. Trouble concentrating on things, such as reading the newspaper or watching television: not at all 8. Moving or speaking so slowly that other people could have noticed. Or the opposite - being so fidgety or restless that you have been moving around a lot more than usual: not at all 9. Thoughts that you would be better off or of hurting yourself in some way: not at all Total score: 0 Depression Screening Interpretation: Negative Depression Screening Done: Yes Source: Developed by Drs. Eulalio Nicole, Khalida Martinez, Marshall Mcqueen and colleagues, with an educational natalee from [employer]. Thrive Questionnaire Date Thrive assessed: 10/09/23 I am a: Patient What is your living situation today?: I have a steady place to live Within the past 12 months, did the food you bought not last and you didn't have the money to get more?: Never true Within the past 12 months, did you worry whether your food would run out before you got money to buy more?: Never true Do you have trouble paying for medicines?: No Do you have trouble getting transportation to medical appointments?: No Do you have trouble paying your heating and electricity bill?: No Do you have trouble taking care of your child, family member or friend?: No Do you have trouble with day-to-day activities such as bathing, preparing meals, shopping, managing finances, etc.?: No Are you currently unemployed and looking for a job?: No Are you interested in more education?: No BRANDON-7 AMB Questionnaire BRANDON-7 Date BRANDON - 7 assessed: 10/09/23 Feeling nervous, anxious, or on edge: 0 = Not at all Not being able to stop or control worryin = Not at all Worrying too much about different things: 0 = Not at all Trouble relaxin = Not at all Being so restless that it is hard to sit still: 0 = Not at all Becoming easily annoyed or irritable: 0 = Not at all Feeling afraid as if something awful might happen: 0 = Not at all Total BRANDON-7 score (0-4 normal; 5-9 mild; 10-14 moderate; 15-21 severe): 0 Source: Developed by Drs. Eulalio Nicole, Khalida Martinez, Marshall Mcqueen and colleagues, with an educational natalee from [employer]. BRANDON-7 Assessment Billing BRANDON-7 Assessment Tool: BRANDON-7 Assessment 68811 Review of Systems Const Denies chills and Denies fever(s) Eyes Denies blurry vision ENT Denies vertigo, Denies dizziness and Denies sore throat Card Denies chest pain at rest, Denies chest pain with activity, Denies diaphoresis, Denies dyspnea and Denies dyspnea on exertion Resp Denies cough, Denies dyspnea, Denies dyspnea on exertion and Denies wheezing GI Denies abdominal pain, Denies melena, Denies hematochezia, Denies constipation, Denies diarrhea and Denies loose stools Denies hematuria Musc Denies numbness and Denies tingling Skin/Breast Denies lesions Neuro Denies vertigo, Denies dizziness, Denies numbness and Denies tingling Psych Denies anxiety, Denies depression, Denies homicidal ideation, Denies suicidal ideation and Denies other (substance abuse) Aller/Immun Denies wheezing Physical exam (Primary Care) Vital Signs: Last Vital Signs Pulse 70 10/09/23 08:53 BP 110/78 10/09/23 08:53 Pulse Ox 95 10/09/23 08:53 Oxygen Delivery Method Room Air 10/09/23 08:53 BMI result Body Mass Index 41.5 Tobacco/Smoking Status: Tobacco use Status Tobacco use date assessed 07/04/23 10/09/23 08:53 Patient Tobacco Use Status Never used Tobacco 10/09/23 08:53 e-Cigarette/Vaping Use Never Used 10/09/23 08:53 Depression Screening Interpretation: Negative Thrive Assessment: Date of Thrive Assessment Date Thrive assessed 06/28/22 12/18/23 08:53 Const General: cooperative Nutritional Appearance: obese morbidly obese Orientation/consciousness: patient oriented x3 HENMT Head: Yes normal to inspection, Yes normocephalic and Yes atraumatic Ears: TM's normal bilaterally Eyes General: appearance normal, both eyes and all related structures Alignment and Position: alignment normal and position normal Neck Neck: Yes normal visual inspection and Yes no lymphadenopathy Thyroid: Thyroid normal Resp Effort & Inspection: normal respiratory effort Auscultation: clear to auscultation bilaterally Cardio Rate: regular rate Rhythm: regular rhythm Heart sounds: S1 normal heart sound present, S2 normal heart sound present and no murmurs GI Palpation (GI): Soft to palpation and nontender Auscultation: normal bowel sounds Skin Rashes: no rashes Neuro General: patient oriented x3, moves all extremities, no focal motor deficits and deep tendon reflexes 2+ bilaterally Romberg Test: Negative Psych Appearance: grossly normal Mental Status: mental status grossly normal Speech and movement: Normal speech and movement present Affect: normal affect Attitude: cooperative Thought process: Normal thought process present Thought content: Normal thought content present Insight: Good insight present (Psych) Judgement: Good judgement present (Psych) Assessment and Plan Assessment & Plan (1) Physical exam: Code(s): Z00.00 - Encounter for general adult medical examination without abnormal findings Plan: Labs ordered (2) Chest discomfort: Code(s): R07.89 - Other chest pain Plan The patient agreed to the use of a medical i d sales for this encounter. Scribed for KIERAN Britt by Lashanda Jimenez medical i d [employer], on 10/09/2023 at 09:05 EST. Orders: Orders Comprehensive [place]. Panel Fast Today Z00.00 - Encounter for general adult medical examination without abnormal findings Lipid Panel Today Z00.00 - Encounter for general adult medical examination without abnormal findings Complete Blood Count Auto Diff Today Z00.00 - Encounter for general adult medical examination without abnormal findings TSH reflex Free T4 Today Z00.00 - Encounter for general adult medical examination without abnormal findings UA CC w/rflx Micro + Cult Today Z00.00 - Encounter for general adult medical examination without abnormal findings AMB EKG-In Office Today R07.89 - Other chest pain Coding Level of Care Code Est Pt Prev Care 18-39y(38560) Diagnoses Physical exam Z00.00 Chest discomfort R07.89 Additional Codes BRANDON-7 Assessment Billing - BRANDON-7 Assessment Tool: BRANDON-7 Assessment [id number] ([id number])
[2023-10-09 08:53] VITALS: BP 110/78; PULSE 70; O2SAT 95; BMI 41.5
== END 2023-10-09 10:16 | disposition home or self-care (01) ==
PROVIDERS: PCP Nurse Practitioner Family; Visit Provider Nurse Practitioner Family
DX: Z00.00 Encounter for general adult medical examination without abnormal findings (principal); R07.89 Other chest pain
CPT/HCPCS: 99395

== ENCOUNTER 2023-10-11 09:52 | Outpatient (AMB) | payer OTHER, SELFPAY ==
--- NOTE | 2023-10-11 10:22 | MHC.OFFWIV ---
Intake Vital Signs 10/11/23 10:26 Height 4 ft 11 in BP 124/80 Blood Pressure Location Rt brachial Position Sitting Pulse 70 Pulse Source Pulse Oximeter Temp 98.5 F Temp Source Temporal Artery Scan Pulse Oximetry (%) 99 Oxygen Delivery Method Room Air Intake Visit Reasons: EST/weakness came in Diarrhea(lobby masked) Intake Note: Pt is here c/o feeling weak and diarrhea. Pt states her daughter did test positive for RSV. Patient Tobacco Use Status: Never used Tobacco Allergies No Known Allergies Allergy (Verified 10/11/23 10:22) Do you need a note to return to daycare/school/sports/work: No HPI EST/weakness came in Diarrhea(lobby masked) HPI Details This is a 22 year old female patient who presents today with a 2 day history of fatigue, body aches, nausea, cold sweats and diarrhea. She reports 8+ episodes of watery diarrhea today. Denies any blood in stool. Has not vomited. Her daughter was diagnosed with RSV last week. She denies any cough or respiratory distress. [facility] Medical History Scoliosis Renal calculi Prediabetes Surgical History History of oophorectomy, unilateral No pertinent past surgical history Family History Father No problems noted. Mother No problems noted. Paternal Grandmother Breast cancer Social History Housing: Apartment Alcohol intake: never Patient Tobacco Use Status: Never used Tobacco e-Cigarette/Vaping Use: Never Used Second Hand Smoke Exposure: No service: No Current occupational status: employed Current occupation: [employer] Current occupational exposures/hazards: No Cognitive needs: No Hearing needs: No Vision needs: No Review of Systems Const All systems reviewed & are unremarkable except as noted in HPI and below Physical Exam Vital Signs: Last Vital Signs Temp 98.5 F 10/11/23 10:26 Pulse 70 10/11/23 10:26 BP 124/80 10/11/23 10:26 Pulse Ox 99 10/11/23 10:26 Oxygen Delivery Method Room Air 10/11/23 10:26 Const General: cooperative and ill appearing acutely HEENT Head: Yes normal to inspection Ears: hearing grossly normal bilaterally Neck Neck: Yes no lymphadenopathy Resp Effort & Inspection: normal respiratory effort Auscultation: clear to auscultation bilaterally Cardio Jugular venous distension: no JVD Palpation: normal PMI Rate: regular rate Rhythm: regular rhythm GI Inspection: Yes normal to inspection Palpation (GI): Soft to palpation Auscultation: normal bowel sounds Skin General skin exam: no rashes or lesions noted Extrem General: Yes capillary refill normal and Yes no clubbing, cyanosis or edema Psych Appearance: grossly normal Mental Status: mental status grossly normal Speech and movement: Normal speech and movement present Assessment & Plan Assessment & Plan (1) Exposure to respiratory syncytial virus (RSV): Code(s): Z20.828 - Contact with and (suspected) exposure to other viral communicable diseases Plan: Her daughter was recently diagnosed with RSV. I have obtained viral swab for Covid/Flu/RSV. No respiratory symptoms at this time. (2) Diarrhea: Code(s): R19.7 - Diarrhea, unspecified Qualifiers: Diarrhea type: unspecified type Qualified Code(s): R19.7 - Diarrhea, unspecified Plan: Patient having watery diarrhea and nausea. No fever. No abdominal pain. VS are normal. Patient feels weak. We have discussed transfer to ED for evaluation and possible IV hydration. Patient does not wish to go to the ED at this time as she was there with her daughter this weekend and waited 7 hours. We discussed indications to not delay emergency care, including ongoing/worsening diarrhea, abdominal pain, persistent fever, weakness/dizzines or any LOC. She verbalizes understanding of this. He mother is bringing her home from the [place] clinic today. We discussed importance of PO hydration and electrolyte replacement, and advancing diet as tolerated. She may take Tylenol if tolerated for the body aches/any fever/chills. I will also prescribe her a short course of loperamide and ondansetron. We reviewed indications, use, possible s/e of these. She verbalizes understanding and agrees to plan. (3) Nausea: Code(s): R11.0 - Nausea Plan: Ondansetron as above. Orders: Orders SARS-CoV2/FLU/RSV Today Z20.828 - Contact with and (suspected) exposure to other viral communicable diseases Medications: New ondansetron HCl 4 mg PO Q8H PRN 14 tabs 0RF nausea and vomiting R11.2 - Nausea with vomiting, unspecified loperamide Take every 6 hours as needed for diarrhea. Do not exceed 2 days of use. 2 mg PO Q6H PRN 8 caps 0RF loose stool R19.7 - Diarrhea, unspecified Coding Level of Care Code Est Pt Level 3 (49383) Diagnoses Exposure to respiratory syncytial virus (RSV) Z20.828 Diarrhea, unspecified type R19.7 Diarrhea type: unspecified type Nausea R11.0
[2023-10-11 10:26] VITALS: BP 124/80; PULSE 70; TEMP 36.9; O2SAT 99
== END 2023-10-11 11:51 | disposition home or self-care (01) ==
PROVIDERS: PCP Nurse Practitioner Family; Visit Provider Nurse Practitioner Family
DX: Z20.828 Contact with and (suspected) exposure to other viral communicable diseases (principal); R19.7 Diarrhea, unspecified; R11.0 Nausea
CPT/HCPCS: 99213

== ENCOUNTER 2023-10-11 11:18 | Outpatient (REF) | payer OTHER, SELFPAY ==
[2023-10-11 15:02] LABS: Influenza A PCR NEGATIVE (Negative); Influenza B PCR NEGATIVE (Negative); Resp Syncy Virus RNA Qual PCR POSITIVE (Negative); SARS COV2 PCR INHOUSE NEGATIVE (Negative)
== END 2023-10-11 11:19 | disposition home or self-care (01) ==
LOC: HO.LAB 11:18
PROVIDERS: Visit Provider Nurse Practitioner Family
DX: Z11.52 Encounter for screening for COVID-19 (principal); Z20.822 Contact with and (suspected) exposure to COVID-19
CPT/HCPCS: 0241U

== ENCOUNTER 2024-03-05 12:07 | Outpatient (AMB) | payer OTHER, SELFPAY ==
--- NOTE | 2024-03-05 12:19 | MHC.OFFWIV ---
Intake Vital Signs 03/05/24 12:21 Height 4 ft 11 in BP 130/80 Blood Pressure Location Rt brachial Position Sitting Pulse 92 Pulse Source Pulse Oximeter Temp 97.8 F Temp Source Oral Pulse Oximetry (%) 98 Intake Visit Reasons: EST/blurry vision/head pressure([phone]) Intake Note: pt is here for pressure in head, has hx of migraine and wanted to confirm thats all it is. headache on going for days Patient Tobacco Use Status: Never used Tobacco Allergies No Known Allergies Allergy (Verified 03/05/24 12:20) Do you need a note to return to daycare/school/sports/work: Yes HPI HPI Comments History of Present Illness Details Patient is a 23-year-old female in today for a sick visit. Patient has a past medical history significant for gestational diabetes, migraines, frequent kidney stones. Patient states that for past 2-3 days she has developed intermittent headache, unilateral. Patient denies any tingling or numbness, denies dizziness, chest pain, shortness a breath. Patient does state that she has felt an intermittent aura, with vision change that lasts 15-20 seconds. She reports having recent eye exam within the past week with no abnormal findings. She has been utilizing [id number] ibuprofen with good effect. Patient has no concerns for issues currently having her period. Patient states she is not currently having a headache or having any vision issues at the exam today. [facility] Medical History (Updated 03/05/24 @ 12:56 by DEONTE Kearney) Gestational diabetes mellitus Spotting affecting in first trimester High risk due to history of previous obstetrical problem Scoliosis Renal calculi Prediabetes Surgical History History of oophorectomy, unilateral No pertinent past surgical history Family History Father No problems noted. Mother No problems noted. Paternal Grandmother Breast cancer Social History Housing: Apartment Alcohol intake: never Patient Tobacco Use Status: Never used Tobacco e-Cigarette/Vaping Use: Never Used Second Hand Smoke Exposure: No service: No Current occupational status: employed Current occupation: [employer] Current occupational exposures/hazards: No Cognitive needs: No Hearing needs: No Vision needs: No Review of Systems Const All systems reviewed & are unremarkable except as noted in HPI and below Neuro Denies Sensory deficit (Neuro) Physical Exam Const Other: Appearance: Alert.? Oriented X3.? No acute distress.? Head: Normocephalic. Eyes: Pupils equal, round and reactive to light. EOMI. Fundus normal. ? ENT: Pharynx normal.?TM intact and pearly fontaine. Neck: Normal inspection.? Neck supple.? CVS: Normal heart rate and rhythm.? Pulses normal.? Respiratory: No respiratory distress.? Breath sounds normal.? Neuro: Oriented X 3.? No motor deficit.? No sensory deficit. CN 2-12 intact Orientation/consciousness: patient oriented x3 Eyes Pupils: Equal, round and reactive pupils present Neuro General: patient oriented x3 and gait normal Cranial nerves: Yes CN's II-XII intact bilaterally, Yes Equal, round and reactive pupils present, Yes Bilaterally intact EOM present and Yes Ability to bilaterally elevate shoulders present Cognition (Neuro): normal cognition Gait exam (Neuro): Normal gait present Motor exam (neuro): 5/5 motor strength present throughout and Pronator motor function not present Sensory Exam: No Sensory deficit (Neuro) Coordination: [id number] test normal Romberg Test: Negative Assessment & Plan Assessment & Plan (1) Migraine: Comment: Patient is likely having migraine as symptoms are similar to migraine she has had in the past. Patient has been utilizing ibuprofen with good effect, will have patient take naproxen instead. Patient has been instructed to stay hydrated to avoid triggers. Patient has been educated on signs of worsening symptoms and when to report back to the walk-in or when to present to the ED Will draw CBC and CMP. Code(s): G43.909 - Migraine, unspecified, not intractable, without status migrainosus Qualifiers: Migraine type: unspecified Status migrainosus presence: without status migrainosus Intractability: not intractable Qualified Code(s): G43.909 - Migraine, unspecified, not intractable, without status migrainosus Plan: Take your medications as prescribed. If you were prescribed antibiotics today, it is important that you take your medication to their entirety, do not skip any doses, do not finish them early. Follow-up with your primary care provider this week. Return to the emergency department with new or worsening symptoms. Such as fevers, chills, chest pain, shortness of breath, nausea, vomiting, dizziness, headache, vision changes, lethargy In case of emergency call 911 Plan Follow-up with PCP Orders: Orders Comprehensive Met. Panel Today Z91.89 - Other specified personal risk factors, not elsewhere classified Complete Blood Count Auto Diff Today Z13.0 - Encounter for screening for diseases of the blood and blood-forming organs and certain disorders involving the immune mechanism Medications: New naproxen 500 mg PO BID PRN 20 tabs 0RF pain Coding Level of Care Code Est Pt Level 3 (27379) Diagnoses Migraine without status migrainosus, not intractable, unspecified migraine type G43.909 Migraine type: unspecified Status migrainosus presence: without status migrainosus Intractability: not intractable Time Spent (min) 27
[2024-03-05 12:21] VITALS: BP 130/80; PULSE 92; TEMP 36.6; O2SAT 98
== END 2024-03-05 13:21 | disposition home or self-care (01) ==
PROVIDERS: PCP Nurse Practitioner Family; Visit Provider Nurse Practitioner Primary Care
DX: G43.909 Migraine, unspecified, not intractable, without status migrainosus (principal)
CPT/HCPCS: 99213

== ENCOUNTER 2024-03-05 12:54 | Outpatient (REF) | payer OTHER, SELFPAY ==
[2024-03-05 15:59] LABS: MANUAL DIFF FLAG NO
[2024-03-05 16:01] LABS: Appearance Urine Clear; Color Urine Yellow; Glucose Urine UA Negative (Negative); Leukocyte Esterase Urine Small (1+) (Negative); Nitrite Urine Negative (Negative); UMIC TRIGGER UACC YES; Urine Blood Moderate (2+) (Negative); Urine Ketones Negative (Negative); Urine Protein Negative (Neg-Trace)
[2024-03-05 16:06] LABS: Basophils Percent Auto 0.5 % (0-2); Eosinophils Absolute Auto 0.2 X10*3/uL (0.0-0.4); Eosinophils Percent Auto 2.3 % (0-4); Hemoglobin 12.3 g/dl (12.0-16.0); Imm Gran Abs Auto 0.01 X10*3/uL (0.00-0.03); Imm Gran Pct Auto 0.1 % (0.0-0.4); Lymphocytes Absolute Auto 2.4 X10*3/uL (1.2-4.9); Lymphocytes Percent Auto 30.4 % (20-40); Mean Corpuscular HGB Conc 33.2 g/dl (31.0-35.0); Mean Corpuscular Volume 87.3 fL (80.0-98.0); Mean Platelet Volume 10.3 fL (9.4-12.3); Monocytes Absolute Auto 0.6 X10*3/uL (0.1-1.2); Monocytes Percent Auto 6.9 % (2-11); Neutrophils Absolute Auto 4.8 x10*3/uL (2.0-8.3); Neutrophils Percent Auto 59.8 % (45-73); Platelet Count 343 X10*3/uL (160-400); Red Blood Count 4.24 X10*6/uL (4.20-5.50); Red Cell Distribution Width 12.4 % (11.0-16.0)
[2024-03-05 16:20] LABS: Bacteria Urine None Seen (None Seen); Hyaline Casts Urine 0-2 /LPF (0-2); UACC Culture Trigger YES
[2024-03-05 16:41] LABS: Alanine Aminotransferase 18 U/L (0-31); Alkaline Phosphatase 77 U/L (39-117); Anion Gap 12 (12-20); Aspartate Amino Transferase 17 U/L (5-31); Bilirubin Total 0.2 mg/dL (0.0-1.0); Blood Urea Nitrogen 10 mg/dL (9-16); Carbon Dioxide 23 mmol/L (22-29); Chloride 107 mmol/L (96-108); Estimated Glomerular Filt Rate > 60; Glucose Random 111 mg/dL (60-115); Potassium 3.9 mmol/L (3.3-5.1); Sodium 138 mmol/L (135-145); Total Protein 7.5 g/dL (6.5-8.0)
[2024-03-05 16:56] LABS: TSH reflex Free T4 0.97 uIU/mL (0.32-4.0)
== END 2024-03-05 12:55 | disposition home or self-care (01) ==
LOC: HO.HMGCLDS 12:54
PROVIDERS: PCP Nurse Practitioner Family; Visit Provider Nurse Practitioner Primary Care
DX: Z00.00 Encounter for general adult medical examination without abnormal findings (principal); Z13.0 Encounter for screening for diseases of the blood and blood-forming organs and certain disorders involving the immune mechanism; Z91.89 Other specified personal risk factors, not elsewhere classified
CPT/HCPCS: 36415; 80053; 81001; 81003; 84443; 85025; 87086; 87147

== ENCOUNTER 2024-03-25 11:29 | Outpatient (AMB) | payer OTHER, SELFPAY ==
--- NOTE | 2024-03-25 11:30 | A.OFFPC_ITS ---
Vital Signs 03/25/24 11:33 Height 4 ft 1 in Weight 210 lb BMI 61.5 BP 112/76 Blood Pressure Location Rt brachial Position Sitting Pulse 76 Pulse Source Pulse Oximeter Pulse Oximetry (%) 98 Oxygen Delivery Method Room Air Intake Visit Reasons: spots on forhead Intake Note: Patient here to discuss hands and feet swelling and frequent UTI. Allergies No Known Allergies Allergy (Verified 03/25/24 11:34) Medication List - Last Reconciled 03/25/24 by KIERAN Toure ibuprofen 800 mg PO Q8H PRN naproxen 500 mg PO BID PRN vit,gvio32-pdmw-ouwyp 29 mg iron- 1 mg (Prenatabs Rx) 1 tab PO DAILY Tobacco use date assessed: 03/25/24 Dental Screening Dental Screen Date: 03/25/24 Did you have a dental visit in the last 12 months?: Yes Did you have a dental problem in the last 6 months where you did not have access to dental care?: No Was dental information given to patient?: Patient has dentist HPI spots on forhead HPI Details Pt reports frequent UTIs. UA today is negative for UTI. UA did show hematuria, though pt is currently menstruating. Denies fever, chills, flank pain, and visible hematuria. Pt has a strong family hx of diabetes. Last random glucose was 111. A1C in office today is 6.6. Denies polyuria, polydipsia, and neuropathy. Will refer to nurse navigator. Will send meter and supplies, educated on bid testing. Will start low-dose atorvastatin. Pt will look into a diabetic herself. [facility] Medical History (Updated 03/25/24 @ 12:08 by KIERAN Toure) Gestational diabetes mellitus Spotting affecting in first trimester High risk due to history of previous obstetrical problem Scoliosis Renal calculi Prediabetes Surgical History History of oophorectomy, unilateral No pertinent past surgical history Family History Father No problems noted. Mother No problems noted. Paternal Grandmother Breast cancer Social History Housing: Apartment Alcohol intake: never Patient Tobacco Use Status: Never used Tobacco e-Cigarette/Vaping Use: Never Used Second Hand Smoke Exposure: No service: No Current occupational status: employed Current occupation: [employer] Current occupational exposures/hazards: No Cognitive needs: No Hearing needs: No Vision needs: No Questionnaire Thrive Questionnaire Date Thrive assessed: 10/09/23 BRANDON-7 AMB Questionnaire BRANDON-7 Date BRANDON - 7 assessed: 10/09/23 Source: Developed by Drs. Eulalio Nicole, Khalida Martinez, Marshall Mcqueen and colleagues, with an educational natalee from [employer]. Review of Systems Const Reports as per HPI Physical exam (Primary Care) Vital Signs: Last Vital Signs Pulse 76 03/25/24 11:33 BP 112/76 03/25/24 11:33 Pulse Ox 98 03/25/24 11:33 Oxygen Delivery Method Room Air 03/25/24 11:33 BMI result Body Mass Index 61.5 Tobacco/Smoking Status: Tobacco use Status Tobacco use date assessed 03/25/24 03/25/24 11:37 Patient Tobacco Use Status Never used Tobacco 03/25/24 11:30 e-Cigarette/Vaping Use Never Used 03/25/24 11:30 Thrive Assessment: Date of Thrive Assessment Date Thrive assessed 10/09/23 03/25/24 11:30 Const General: cooperative Nutritional Appearance: obese Orientation/consciousness: patient oriented x3 Resp Effort & Inspection: normal respiratory effort Auscultation: clear to auscultation bilaterally Cardio Rate: regular rate Rhythm: regular rhythm Heart sounds: S1 normal heart sound present and S2 normal heart sound present Neuro General: patient oriented x3 Psych Appearance: grossly normal Mental Status: mental status grossly normal Speech and movement: Normal speech and movement present Affect: normal affect Attitude: cooperative Thought process: Normal thought process present Thought content: Normal thought content present Insight: Good insight present (Psych) Judgement: Good judgement present (Psych) Results AMB Urinalysis, Automated UA Leukoctes 0 Mary Carmen/uL Last Edit by MADIHA Simon on 03/25/24 11:46 UA Nitrite Negative Last Edit by MADIHA Simon on 03/25/24 11:46 UA Urobilinogen 0.2 mg/dL Last Edit by MADIHA Simon on 03/25/24 1 1:4 6 UA Protein 0 mg/dL Last Edit by Charlene Rodriguez [facility] on 03/25/24 11:46 UA pH 6.0 Last Edit by Charlene Rodriguez [facility] on 03/25/24 11:46 UA Blood 25 Neymar/uL Last Edit by Charlene Rodriugez [facility] on 03/25/24 11:46 UA Specific [place] 1.025 Last Edit by Charlene Rodriguez [facility] on 03/25/24 11:46 UA Ketone Positive Last Edit by Charlene Rodriguez [facility] on 03/25/24 11:46 UA Bilirubin 0 mg/dL Last Edit by Charlene Rodriguez [facility] on 03/25/24 11:46 UA Glucose 0 mg/dL Last Edit by Charlene Rodriguez [facility] on 03/25/24 11:46 Results Reviewed Results Reviewed: Laboratory Last Values Urine pH (Auto) 6.0 03/25/24 11:45 Specific [place] (Auto) 1.025 03/25/24 11:45 Urine Protein (Auto) 0 mg/dL 03/25/24 11:45 Glucose (UA)(Auto) 0 mg/dL 03/25/24 11:45 Urine Ketones (Auto) Positive 03/25/24 11:45 Urine Blood (Auto) 25 Neymar/uL 03/25/24 11:45 Urine Nitrite (Auto) Negative 03/25/24 11:45 Urine Bilirubin (Auto) 0 mg/dL 03/25/24 11:45 Urine Urobilinogen (Auto) 0.2 mg/dL 03/25/24 11:45 Leukocyte Esterase (Auto) 0 Mary Carmen/uL 03/25/24 11:45 Assessment and Plan Assessment & Plan (1) Diabetes: Code(s): E11.9 - Type 2 diabetes mellitus without complications Plan The patient agreed to the use of a electromedical equipment repairer for this encounter. Scribed for KIERAN Britt by Lashanda Jimenez electromedical equipment repairer, on 03/25/2024 at 11:45 EST. Orders: Orders Microalbumin, Random (w Creat) Today E11.9 - Type 2 diabetes mellitus without complications Complete Blood Count Auto Diff Today E11.9 - Type 2 diabetes mellitus without complications Comprehensive [place]. Panel Fast Today E11.9 - Type 2 diabetes mellitus without complications TSH reflex Free T4 Today E11.9 - Type 2 diabetes mellitus without complications UA CC w/rflx Micro + Cult Today E11.9 - Type 2 diabetes mellitus without complications AMB Urinalysis Automated Today Z13.9 - Encounter for screening, unspecified Lipid Panel Today E11.9 - Type 2 diabetes mellitus without complications Referrals Nurse Navigator Referral E11.9 - Type 2 diabetes mellitus without complications Medications: New atorvastatin 10 mg PO BEDTIME 90 tabs 0RF Coding Level of Care Code Est Pt Level 3 (54755) Diagnoses Diabetes E11.9
[2024-03-25 11:33] VITALS: BP 112/76; PULSE 76; O2SAT 98; BMI 61.5
== END 2024-03-25 12:14 | disposition home or self-care (01) ==
PROVIDERS: PCP Nurse Practitioner Family; Visit Provider Nurse Practitioner Family
DX: E11.9 Type 2 diabetes mellitus without complications (principal); Z13.9 Encounter for screening, unspecified
CPT/HCPCS: 81003; 83036; 99213

== ENCOUNTER 2024-04-29 18:03 | Emergency (ER) | payer OTHER, SELFPAY ==
--- NOTE | 2024-04-29 | ECG_ITS ---
Test Reason : chest pain Blood Pressure : / mmHG Vent. Rate : 112 BPM Atrial Rate : 112 BPM P-R Int : 134 ms QRS Dur : 068 ms QT Int : 336 ms P-R-T Axes : 043 032 019 degrees QTc Int : 458 ms Sinus tachycardia Nonspecific T wave abnormality Abnormal ECG No previous ECGs available Referred By: Generic ED Physician Electronically Signed By:Danial Salazar
--- NOTE | ~2024-04-29 | XR_ITS ---
EXAMINATION: XR CHEST CLINICAL INFORMATION: Chest pain COMPARISON: None available. TECHNIQUE: Frontal view of the chest was obtained. FINDINGS: No significant abnormality is noted involving the heart, lungs, mediastinum, bony thorax or soft tissues. XR/XR chest 1V IMPRESSION: Unremarkable examination.
[2024-04-29 18:04] VITALS: BP 145/91; PULSE 118; RESP 20; TEMP 37.2; O2SAT 98; BMI 44.6
[2024-04-29 18:22] LABS: MANUAL DIFF FLAG NO
[2024-04-29 18:32] LABS: Basophils Percent Auto 0.4 % (0-2); Eosinophils Absolute Auto 0.1 X10*3/uL (0.0-0.4); Eosinophils Percent Auto 0.7 % (0-4); Hemoglobin 12.5 g/dl (12.0-16.0); Imm Gran Abs Auto 0.03 X10*3/uL (0.00-0.03); Imm Gran Pct Auto 0.3 % (0.0-0.4); Lymphocytes Percent Auto 21.5 % (20-40); Mean Corpuscular HGB Conc 33.8 g/dl (31.0-35.0); Mean Corpuscular Hemoglobin 29.3 pg (27.0-33.0); Mean Corpuscular Volume 86.9 fL (80.0-98.0); Mean Platelet Volume 9.9 fL (9.4-12.3); Monocytes Absolute Auto 0.5 X10*3/uL (0.1-1.2); Monocytes Percent Auto 4.8 % (2-11); Neutrophils Absolute Auto 6.8 x10*3/uL (2.0-8.3); Neutrophils Percent Auto 72.3 % (45-73); Platelet Count 326 X10*3/uL (160-400); Red Blood Count 4.26 X10*6/uL (4.20-5.50); White Blood Count 9.4 X10*3/uL (4.8-10.8)
[2024-04-29 18:42] LABS: Prothrombin Time 12.4 SEC (11.1-13.3)
[2024-04-29 18:49] LABS: Alanine Aminotransferase 23 U/L (0-31); Albumin Level 4.3 g/dL (3.5-5.0); Alkaline Phosphatase 89 U/L (39-117); Anion Gap 12 (12-20); Aspartate Amino Transferase 17 U/L (5-31); Bilirubin Total 0.6 mg/dL (0.0-1.0); Blood Urea Nitrogen 10 mg/dL (9-16); Calcium 9.6 mg/dL (8.4-10.2); Carbon Dioxide 26 mmol/L (22-29); Chloride 104 mmol/L (96-108); Estimated Glomerular Filt Rate > 60; Glucose Random 163 mg/dL (60-115); Magnesium 1.8 mg/dL (1.6-2.6); Potassium 3.8 mmol/L (3.3-5.1); Sodium 138 mmol/L (135-145)
[2024-04-29 19:09] LABS: Troponin-I High Sensitivity < 2.7 ng/L (<3.5-17.0)
--- NOTE | 2024-04-29 21:22 | ED.CHESTPAIN ---
HPI - Chest Pain General Chief Complaint: Chest Pain Stated Complaint: chest pain, R facial numbness, pre diabetic Time Seen by Provider: 04/29/24 21:22 Source: patient Mode of arrival: ambulatory Limitations: no limitations History of Present Illness ED Provider: drew DEGROOT narrative: Patient is 23 years old with no significant cardiac history in the past nonsmoker comes here for sharp in in the left side of the chest happen yesterday lasted only few seconds no recurrence of chest pain after the also noted to have slight headache on the right side with numbness feeling which has gone now no shortness a breath no leg swelling or pain Related Data Home Medications ?Medication ?Instructions ?Recorded ?Confirmed vitamin 1 tab PO DAILY 03/05/24 03/25/24 no.76-iron,carbonyl 29 mg iron-folic acid 1 mg tablet (Prenatabs Rx) Previous Rx's ?Medication ?Instructions ?Recorded ibuprofen 800 mg tablet 800 mg PO Q8H PRN pain #60 tabs 12/17/23 naproxen 500 mg tablet 500 mg PO BID PRN pain #20 tabs 03/07/24 atorvastatin 10 mg tablet 10 mg PO BEDTIME #90 tabs 03/25/24 blood sugar diagnostic (FreeStyle #100 ea 03/26/24 Lite Strips) blood-glucose meter (FreeStyle #1 ea 03/26/24 Lite Meter kit) lancets 28 gauge (FreeStyle #100 ea 03/26/24 Lancets) raumtzbxdz-dzobtosfihgyj-uavsuvmu 1 tab PO Q6H PRN haeadace #20 tabs 04/29/24 50 mg-325 mg-40 mg tablet Allergies Allergy/AdvReac Type Severity Reaction Status Date / Time No Known Allergies Allergy Verified 04/29/24 18:06 Review of Systems Review of Systems: Yes all other systems are reviewed and are negative [facility] Past Medical History Medical History Gestational diabetes mellitus Spotting affecting in first trimester High risk due to history of previous obstetrical problem Scoliosis Renal calculi Prediabetes Surgical History History of oophorectomy, unilateral No pertinent past surgical history Family History Family History Father No problems noted. Mother No problems noted. Paternal Grandmother Breast cancer Social History Social History Housing: Apartment Alcohol intake: never Patient Tobacco Use Status: Never used Tobacco e-Cigarette/Vaping Use: Never Used Second Hand Smoke Exposure: No Advance Directives: No Advance Directives Information Provided: No Do you have a plan to hurt others: No Plan service: No Current occupational status: employed Current occupation: [employer] Current occupational exposures/hazards: No Cognitive needs: No Hearing needs: No Vision needs: No Physical Exam Vital Signs: Vital Signs: Last Vital Signs Temp 98.9 F 04/29/24 18:04 Pulse 118 H 04/29/24 18:04 Resp 20 04/29/24 18:04 BP 145/91 H 04/29/24 18:04 Pulse Ox 98 04/29/24 18:04 O2 Del Method Room Air 04/29/24 18:04 BMI result Body Mass Index 44.6 Appearance: Alert. Oriented X3. No acute distress. No chest pain no headache at this time Eyes: PERRLA, No Nystagmus ENT: Pharynx normal. Oral Mucosa moist Neck: Normal inspection. Neck supple. CVS: Normal heart rate and rhythm. Pulses normal. Respiratory: No respiratory distress. Equal air entry bilateral, no wheezing/rales/rhonchi Abdomen: Soft and nontender. Bowel sounds are present, Skin: Skin warm and dry. Normal skin color. Normal skin turgor. Extremities: No lower extremity edema. No calf tenderness Neuro: Oriented X 3. No motor deficit. No sensory deficit.No cerebellar signs , cranial nerves II-XII intact Medical Decision Making Medical Decision Making MDM Narrative: Patient's heart score of 0 comes with atypical chest pain lasting only for few seconds noncardiac workup negative unlikely PE no shortness a breath at this time patient asymptomatic, headache likely migraine at this time no symptoms will discharge patient home on Fioricet Differential Diagnosis Differential Diagnoses: The differential diagnosis associated with the presentation includes Musculoskeletal chest pain /migraine Lab Data [facility] Lab Attestation statement: I reviewed the patient's lab results. 04/29/24 18:17 04/29/24 18:17 Labs: Lab Results 04/29/24 Range/Units 18:17 WBC 9.4 (4.8-10.8) X10*3/uL RBC 4.26 (4.20-5.50) X10*6/uL Hgb 12.5 (12.0-16.0) g/dl Hct 37.0 (37.0-47.0) % MCV 86.9 (80.0-98.0) fL MCH 29.3 (27.0-33.0) pg MCHC 33.8 (31.0-35.0) g/dl RDW 12.0 (11.0-16.0) % Plt Count 326 (160-400) X10*3/uL MPV 9.9 (9.4-12.3) fL Immature Gran % (Auto) 0.3 (0.0-0.4) % Neut % (Auto) 72.3 (45-73) % Lymph % (Auto) 21.5 (20-40) % Norman % (Auto) 4.8 (2-11) % Eos % (Auto) 0.7 (0-4) % Baso % (Auto) 0.4 (0-2) % Lymph # (Auto) 2.0 (1.2-4.9) X10*3/uL Norman # (Auto) 0.5 (0.1-1.2) X10*3/uL Eos # (Auto) 0.1 (0.0-0.4) X10*3/uL Baso # (Auto) 0.0 (0.0-0.2) X10*3/uL Abs Immat Gran (auto) 0.03 (0.00-0.03) X10*3/uL Absolute Neuts (auto) 6.8 (2.0-8.3) x10*3/uL Absolute Nucleated RBC 0.000 (0.0-0.012) X10*3/uL Nucleated RBC % (auto) 0.0 (0.0-0.2) /100WBC PT 12.4 (11.1-13.3) SEC INR 1.0 (0.9-1.1) Sodium 138 (135-145) mmol/L Potassium 3.8 (3.3-5.1) mmol/L Chloride 104 (96-108) mmol/L Carbon Dioxide 26 (22-29) mmol/L Anion Gap 12 (12-20) BUN 10 (9-16) mg/dL Creatinine 0.80 (0.5-1.4) mg/dL Estim Creat Clear Calc 112.0 Estimated GFR > 60 Random Glucose 163 H (60-115) mg/dL Calcium 9.6 D (8.4-10.2) mg/dL Magnesium 1.8 (1.6-2.6) mg/dL Total Bilirubin 0.6 (0.0-1.0) mg/dL AST 17 (5-31) U/L ALT 23 (0-31) U/L Alkaline Phosphatase 89 (39-117) U/L Troponin I High Sens < 2.7 (<3.5-17.0) ng/L Total Protein 8.0 (6.5-8.0) g/dL Albumin 4.3 (3.5-5.0) g/dL Independent Interpretation I performed an independent interpretation of an: EKG and Plain X-Ray Interpretation: Sinus tachycardia heart rate 112 beats per minute normal interval normal axis no acute ST T wave changes no acute ischemia Radiology Impression Discussion of test interpretation with radiology: I have reviewed the radiologist's reading. Discharge Plan Discharge Clinical Impression: Atypical chest pain, Migraine Patient Disposition: Home, Self-Care Instructions: Migraine Headache (ED), Noncardiac Chest Pain (ED) Additional Instructions: Your chest pain is musculoskeletal Headache is likely migraine take medication as prescribed Follow with your PCP Prescriptions: New zrdpihwnql-jsvcqscdeftnr-kudk 50-325-40 mg tablet 1 tab PO Q6H PRN (Reason: haeadace) Qty: 20 0RF No Action ibuprofen 800 mg tablet 800 mg PO Q8H PRN (Reason: pain) Qty: 60 0RF (DME) FreeStyle Lite Strips Strip See Rx Instructions .Route Qty: 100 1RF Rx Instructions: Test blood sugar once a day (DME) blood-glucose meter [FreeStyle Lite Meter] Kit See Rx Instructions .Route Qty: 1 0RF Rx Instructions: As directed (DME) lancets [FreeStyle Lancets] 28 gauge misc See Rx Instructions .Route Qty: 100 1RF Rx Instructions: Test blood sugar once a day atorvastatin 10 mg tablet 10 mg PO BEDTIME Qty: 90 0RF Prenatabs Rx 29 mg iron- 1 mg tablet 1 tab PO DAILY naproxen 500 mg tablet 500 mg PO BID PRN (Reason: pain) Qty: 20 0RF Print Language: Albanian
[2024-04-29 21:30] VITALS: BP 145/95; PULSE 108; RESP 17; TEMP 36.7; O2SAT 96
[2024-04-29 21:45] VITALS: PULSE 98
[2024-04-29 21:46] VITALS: BP 145/95; PULSE 100; RESP 17; TEMP 36.7; O2SAT 96
[2024-04-30 07:15] LABS: Estimated Average Glucose 134 mg/dL; Hemoglobin A1c % 6.3 % (<6.0)
== END 2024-04-29 21:47 | disposition home or self-care (01) ==
PROVIDERS: Emergency Provider Internal Medicine; PCP Nurse Practitioner Family
DX: R07.89 Other chest pain (principal); R51.9 Headache, unspecified; R20.0 Anesthesia of skin; R73.03 Prediabetes; Z79.899 Other long term (current) drug therapy
CPT/HCPCS: 36415; 71045; 80053; 83036; 83735; 84484; 85025; 85610; 93005; 99283; 99285

== ENCOUNTER → 2024-04-29 18:06 | Outpatient (BNV) | payer OTHER, SELFPAY | PROVIDERS: Emergency Provider Internal Medicine; PCP Nurse Practitioner Family; Visit Provider Internal Medicine Cardiovascular Disease | DX: R07.9 Chest pain, unspecified (principal) | CPT/HCPCS: 93010 ==

== ENCOUNTER 2024-07-05 01:50 | Emergency (ER) | payer OTHER, SELFPAY ==
[2024-07-05 02:08] VITALS: BP 143/85; PULSE 95; RESP 18; TEMP 36.9; O2SAT 98; BMI 43.0
--- NOTE | 2024-07-05 02:16 | ECG_ITS ---
Test Reason : chest pain Blood Pressure : / mmHG Vent. Rate : 101 BPM Atrial Rate : 101 BPM P-R Int : 144 ms QRS Dur : 066 ms QT Int : 340 ms P-R-T Axes : 045 036 019 degrees QTc Int : 440 ms Sinus tachycardia Nonspecific T wave abnormality Abnormal ECG When compared with ECG of 29-APR-2024 18:06, No significant change was found Referred By: Generic ED Physician Electronically Signed By:GLO CRUZ
[2024-07-05 02:33] LABS: Basophils Absolute Auto 0.1 X10*3/uL (0.0-0.2); Basophils Percent Auto 0.6 % (0-2); Eosinophils Absolute Auto 0.1 X10*3/uL (0.0-0.4); Eosinophils Percent Auto 1.1 % (0-4); Hematocrit 35.7 % (37.0-47.0); Hemoglobin 12.2 g/dl (12.0-16.0); Imm Gran Abs Auto 0.03 X10*3/uL (0.00-0.03); Imm Gran Pct Auto 0.3 % (0.0-0.4); MANUAL DIFF FLAG NO; Mean Corpuscular HGB Conc 34.2 g/dl (31.0-35.0); Mean Platelet Volume 9.8 fL (9.4-12.3); Monocytes Absolute Auto 0.5 X10*3/uL (0.1-1.2); Monocytes Percent Auto 5.3 % (2-11); Neutrophils Absolute Auto 6.3 x10*3/uL (2.0-8.3); Neutrophils Percent Auto 70.7 % (45-73); Platelet Count 301 X10*3/uL (160-400); Red Cell Distribution Width 11.9 % (11.0-16.0); White Blood Count 8.9 X10*3/uL (4.8-10.8)
[2024-07-05 02:51] LABS: Alanine Aminotransferase 16 U/L (0-31); Albumin Level 3.9 g/dL (3.5-5.0); Alkaline Phosphatase 87 U/L (39-117); Anion Gap 12 (12-20); Aspartate Amino Transferase 16 U/L (5-31); Bilirubin Total 0.2 mg/dL (0.0-1.0); Blood Urea Nitrogen 11 mg/dL (9-16); Calcium 9.2 mg/dL (8.4-10.2); Carbon Dioxide 22 mmol/L (22-29); Chloride 109 mmol/L (96-108); Creatinine Clr Calc Pharmacy 115.3; Estimated Glomerular Filt Rate > 60; Glucose Random 196 mg/dL (60-115); Potassium 3.9 mmol/L (3.3-5.1); Sodium 139 mmol/L (135-145); Total Protein 7.7 g/dL (6.5-8.0)
[2024-07-05 04:11] VITALS: BP 135/81; PULSE 104; RESP 16; TEMP 37; O2SAT 100
--- NOTE | 2024-07-05 06:23 | ED_ITS ---
HPI - General Adult General Chief complaint: General Medical Stated complaint: high blood pressure Time Seen by Provider: 07/05/24 06:12 Source: patient Mode of arrival: ambulatory Limitations: no limitations History of Present Illness ED Provider: Dr. Sharonda Wang HPI narrative: Patient comes to the emergency room complaining of hypertension. Patient states that she has been dealing with high blood pressure in the 140s on average for about 2 years. Patient states that over last few days she feels sharp chest pains lasting a split of a 2nd intermittently. At this time asymptomatic. Patient states that she bought a blood pressure monitor at home and today was in the 170s systolic. Patient got scared and came to the emergency room. Related Data Home Medications ?Medication ?Instructions ?Recorded ?Confirmed vitamin 1 tab PO DAILY 03/05/24 03/25/24 no.76-iron,carbonyl 29 mg iron-folic acid 1 mg tablet (Prenatabs Rx) Previous Rx's ?Medication ?Instructions ?Recorded naproxen 500 mg tablet 500 mg PO BID PRN pain #20 tabs 03/07/24 blood sugar diagnostic (FreeStyle #100 ea 03/26/24 Lite Strips) blood-glucose meter (FreeStyle #1 ea 03/26/24 Lite Meter kit) lancets 28 gauge (FreeStyle #100 ea 03/26/24 Lancets) pcynuhudou-eyusashlzsdqb-qbvvzffp 1 tab PO Q6H PRN haeadace #20 tabs 04/29/24 50 mg-325 mg-40 mg tablet atorvastatin 10 mg tablet 10 mg PO BEDTIME #90 tabs 07/04/24 ibuprofen 800 mg tablet 800 mg PO Q8H PRN pain #60 tabs 07/04/24 hydrochlorothiazide 25 mg tablet 25 mg PO DAILY #30 tabs 07/05/24 Allergies Allergy/AdvReac Type Severity Reaction Status Date / Time No Known Allergies Allergy Verified 07/05/24 02:08 Review of Systems 2 Review of Systems: Constitutional : No Weight loss, No Fever, No Chills, No Night Sweats, No Fatigue, No Malaise ENT/Mouth : No Hearing loss, No Ear Pain, No Nasal Congestion, No Sinus Pain, No Hoarseness, No sore throat, No Rhinorrhea, No Swallowing Difficulty Eyes: No Eye Pain, No Swelling, No Redness, No Foreign Body, No Discharge, No Vision Changes Cardiovascular : Complaining of intermittent sharp chest pain, complaining of chronic blood pressure issues in the 140s systolic chronically, No SOB, No Dyspnea on Exertion, No Orthopnea, No Edema, No Palpitations Respiratory : No Cough, No Sputum, No Wheezing, No Smoke Exposure, No Dyspnea Gastrointestinal : No Nausea, No Vomiting, No Diarrhea, No Constipation, No abdominal Pain, No Hematochezia, No Melena Genitourinary : no irregular bleeding, No Dysuria, No Urinary Frequency, No Hematuria, No Urinary Incontinence, No Urgency, No Flank Pain, No Urinary Flow Changes, No Hesitancy Musculoskeletal : No joint pain, No Myalgias, No Joint Swelling Skin : No Skin Lesions, No rash Neuro : No Weakness, No Numbness, No Paresthesias, No Loss of Consciousness, No Dizziness, No Headache Psych : No Anxiety/Panic, No Depression, No SI/HI/AH/VH, No Social Issues, Heme/Lymph: No Bruising, No Bleeding,No Lymphadenopathy Endocrine : No Polyuria, No Polydipsia, No Temperature Intolerance [facility] Past Medical History Medical History Gestational diabetes mellitus Spotting affecting in first trimester High risk due to history of previous obstetrical problem Scoliosis Renal calculi Prediabetes Surgical History History of oophorectomy, unilateral No pertinent past surgical history Family History Family History Father No problems noted. Mother No problems noted. Paternal Grandmother Breast cancer Social History Social History Housing: Apartment Alcohol intake: never Patient Tobacco Use Status: Never used Tobacco e-Cigarette/Vaping Use: Never Used Second Hand Smoke Exposure: No Advance Directives: No Advance Directives Information Provided: No Do you have a plan to hurt others: No Plan service: No Current occupational status: employed Current occupation: [employer] Current occupational exposures/hazards: No Cognitive needs: No Hearing needs: No Vision needs: No Physical Exam ED Vital Signs: Vital Signs - 24 hr 07/05/24 02:08 07/05/24 04:11 Temperature 98.5 F 98.6 F Pulse Rate 95 104 H Respiratory Rate 18 16 Blood Pressure 143/85 H 135/81 Pulse Oximetry 98 100 Oxygen Delivery Method Room Air Room Air BMI result Body Mass Index 43.0 Const Other: Appearance: Alert. Oriented X3. No acute distress. Eyes: Pupils equal, round and reactive to light. ENT: Pharynx normal. Neck: Normal inspection. Neck supple. No lymph nodes noted. No crepitus CVS: Normal heart rate and rhythm. Pulses normal. Normal S1 and S2 Respiratory: No respiratory distress. Breath sounds normal. No Wheezing. No rales Abdomen: Soft and nontender. No rigidity. No distention. Skin: Skin warm and dry. Normal skin color. Normal skin turgor. Extremities: No lower extremity edema. No Lacerations. No Rash Neuro: Oriented X 3. No motor deficit. No sensory deficit. Moving all extremities. No slurred speech. CN 2 through 12 grossly intact Psych: calm, cooperative, normal affect Medical Decision Making Medical Decision Making [facility] Narrative: My interpretation of EKG: Sinus tachycardia, heart rate 101, no ST segment depression or elevation, no T-wave inversion, QTC 440 -my interpretation of labs, normal hematology, chemistry and troponin -patient's blood pressure checked multiple times, in the 140s. -patient states that for at least 2 years she has been having blood pressure in the 140s systolic. Patient is not on any blood pressure medications. Patient states that any where she goes whether it is a pharmacy where she checks her blood pressure, PCP, or Hospital, it is always the same. -I discussed with the patient that given the amount of time that she has been having high blood pressure, different sciatica, it may be worth starting with hydrochlorothiazide to control better her blood pressure. Patient agrees with plan. Patient states she has an appointment pending with her PCP in about 3 weeks. -I discussed with the patient to keep a log of her blood pressure, and tissue with her PCP. -patient agrees with plan. Differential Diagnosis Differential Diagnoses: The differential diagnosis associated with the presentation includes (Chronic hypertension, musculoskeletal pain, muscle spasms) Lab Data [facility] Lab Attestation statement: I reviewed the patient's lab results. 07/05/24 02:26 07/05/24 02:26 Labs: Lab Results 07/05/24 Range/Units 02:26 WBC 8.9 (4.8-10.8) X10*3/uL RBC 4.20 (4.20-5.50) X10*6/uL Hgb 12.2 (12.0-16.0) g/dl Hct 35.7 L (37.0-47.0) % MCV 85.0 (80.0-98.0) fL MCH 29.0 (27.0-33.0) pg MCHC 34.2 (31.0-35.0) g/dl RDW 11.9 (11.0-16.0) % Plt Count 301 (160-400) X10*3/uL MPV 9.8 (9.4-12.3) fL Immature Gran % (Auto) 0.3 (0.0-0.4) % Neut % (Auto) 70.7 (45-73) % Lymph % (Auto) 22.0 (20-40) % Rowan % (Auto) 5.3 (2-11) % Eos % (Auto) 1.1 (0-4) % Baso % (Auto) 0.6 (0-2) % Lymph # (Auto) 2.0 (1.2-4.9) X10*3/uL Rowan # (Auto) 0.5 (0.1-1.2) X10*3/uL Eos # (Auto) 0.1 (0.0-0.4) X10*3/uL Baso # (Auto) 0.1 (0.0-0.2) X10*3/uL Abs Immat Gran (auto) 0.03 (0.00-0.03) X10*3/uL Absolute Neuts (auto) 6.3 (2.0-8.3) x10*3/uL Absolute Nucleated RBC 0.000 (0.0-0.012) X10*3/uL Nucleated RBC % (auto) 0.0 (0.0-0.2) /100WBC Sodium 139 (135-145) mmol/L Potassium 3.9 (3.3-5.1) mmol/L Chloride 109 H (96-108) mmol/L Carbon Dioxide 22 (22-29) mmol/L Anion Gap 12 (12-20) BUN 11 (9-16) mg/dL Creatinine 0.76 (0.5-1.4) mg/dL Estim Creat Clear Calc 115.3 Estimated GFR > 60 Random Glucose 196 H (60-115) mg/dL Calcium 9.2 (8.4-10.2) mg/dL Total Bilirubin 0.2 (0.0-1.0) mg/dL AST 16 (5-31) U/L ALT 16 (0-31) U/L Alkaline Phosphatase 87 (39-117) U/L Total Protein 7.7 (6.5-8.0) g/dL Albumin 3.9 (3.5-5.0) g/dL Independent Interpretation I performed an independent interpretation of an: EKG Critical Care Time Critical Care Time Critical Care Time: Yes Total Critical Care Time: 35 Attestation: I have personally provided critical care time. Time includes review of lab data, radiology results, discussion with consultants, and monitoring for potential decompensation. Intervention performed as documented. Discharge Plan Discharge Clinical Impression: Hypertension Patient Disposition: Home, Self-Care Instructions: Heart Healthy Diet (ED), Chronic Hypertension (ED), DASH Eating Plan (ED) Additional Instructions: Please follow-up with your primary care physician tomorrow. If you have any worsening or new symptoms, please return to the emergency room or call 911 Prescriptions: New hydrochlorothiazide 25 mg tablet 25 mg PO DAILY Qty: 30 0RF No Action (DME) FreeStyle Lite Strips Strip See Rx Instructions .Route Qty: 100 1RF Rx Instructions: Test blood sugar once a day (DME) blood-glucose meter [FreeStyle Lite Meter] Kit See Rx Instructions .Route Qty: 1 0RF Rx Instructions: As directed (DME) lancets [FreeStyle Lancets] 28 gauge misc See Rx Instructions .Route Qty: 100 1RF Rx Instructions: Test blood sugar once a day atorvastatin 10 mg tablet 10 mg PO BEDTIME Qty: 90 1RF ibuprofen 800 mg tablet 800 mg PO Q8H PRN (Reason: pain) Qty: 60 0RF Rx Instructions: do not take when taking naproxen uilvjkhcfk-rbnuwtzqprdcd-cdce 50-325-40 mg tablet 1 tab PO Q6H PRN (Reason: haeadace) Qty: 20 0RF Prenatabs Rx 29 mg iron- 1 mg tablet 1 tab PO DAILY naproxen 500 mg tablet 500 mg PO BID PRN (Reason: pain) Qty: 20 0RF Referrals: Ignacio Bravo, PROCEDURE TECH-BC [Primary Care Provider] - Stand Alone Forms: Work/School Release Print Language: Malawian
[2024-07-05 06:24] VITALS: BP 137/89; PULSE 92; RESP 16; TEMP 36.9; O2SAT 98
[2024-07-05 06:37] VITALS: BP 137/89; PULSE 92; RESP 16; TEMP 36.9; O2SAT 98
== END 2024-07-05 06:37 | disposition home or self-care (01) ==
PROVIDERS: Emergency Provider Emergency Medicine; PCP Nurse Practitioner Family
DX: I10 Essential (primary) hypertension (principal); E11.9 Type 2 diabetes mellitus without complications; F41.9 Anxiety disorder, unspecified; Z79.02 Long term (current) use of antithrombotics/antiplatelets; Z79.899 Other long term (current) drug therapy
CPT/HCPCS: 36415; 80053; 85025; 93005; 99283

== ENCOUNTER 2024-07-18 07:56 | Outpatient (AMB) | payer OTHER, SELFPAY ==
[2024-07-18 07:57] VITALS: BP 124/80; PULSE 109; O2SAT 95; BMI 42.8
--- NOTE | 2024-07-18 07:57 | MHC.PC.OV ---
Vital Signs 07/18/24 07:57 Height 4 ft 11 in Weight 212 lb BMI 42.8 BP 124/80 Blood Pressure Location Rt brachial Position Sitting Pulse 109 H Pulse Source Pulse Oximeter Pulse Oximetry (%) 95 Oxygen Delivery Method Room Air Intake Visit Reasons: 3 mon f/u Allergies No Known Allergies Allergy (Verified 07/18/24 08:10) Medication List - Last Reconciled 07/18/24 by KIERAN Toure atorvastatin 10 mg PO BEDTIME blood sugar diagnostic (FreeStyle Lite Strips) Test blood sugar once a day blood-glucose meter (FreeStyle Lite Meter kit) As directed hydrochlorothiazide 25 mg PO DAILY ibuprofen 800 mg PO Q8H PRN lancets (FreeStyle Lancets) Test blood sugar once a day naproxen 500 mg PO BID PRN vit,[id number] 29 mg iron- 1 mg (Prenatabs Rx) 1 tab PO DAILY Tobacco use date assessed: 03/25/24 Dental Screening Dental Screen Date: 03/25/24 HPI 3 mon f/u HPI Details Pt was seen in the ER on 07/05 with hypertension. EKG showed sinus tachycardia, heart rate 101, no ST segment depression or elevation, no T-wave inversion, QTC 440. Labs were WNL. Pt was started on hydrochlorothiazide 25mg. She reports that her blood pressure at home has been stable. Pt is a diabetic, on a statin. Last A1C was 6.3, will order repeat. Due for microalbumin, will order. Denies polyuria, polydipsia, and neuropathy. Pt denies any signs and symptoms of hypoglycemia and does know how to correct it. Eye exam is up to date according to pt. NOTE: definite anxiety component as well. Does not want therapy or medication currently [facility] Medical History Gestational diabetes mellitus Spotting affecting in first trimester High risk due to history of previous obstetrical problem Scoliosis Renal calculi Prediabetes Surgical History History of oophorectomy, unilateral No pertinent past surgical history Family History Father No problems noted. Mother No problems noted. Paternal Grandmother Breast cancer Social History Housing: Apartment Alcohol intake: never Patient Tobacco Use Status: Never used Tobacco e-Cigarette/Vaping Use: Never Used Second Hand Smoke Exposure: No service: No Current occupational status: employed Current occupation: [employer] Current occupational exposures/hazards: No Cognitive needs: No Hearing needs: No Vision needs: No Questionnaire PHQ-9 Over the last 2 weeks, how often have you been bothered by any of the following problems? 1. Little interest or pleasure in doing things: not at all 2. Feeling down, depressed, or hopeless: not at all 3. Trouble falling or staying asleep, or sleeping too much: not at all 4. Feeling tired or having little energy: not at all 5. Poor appetite or overeating: not at all 6. Feeling bad about yourself - or that you are a failure or have let yourself or your family down: not at all 7. Trouble concentrating on things, such as reading the newspaper or watching television: not at all 8. Moving or speaking so slowly that other people could have noticed. Or the opposite - being so fidgety or restless that you have been moving around a lot more than usual: not at all 9. Thoughts that you would be better off or of hurting yourself in some way: not at all Total score: 0 Depression Screening Interpretation: Negative Depression Screening Done: Yes [id number] - PHQ-9 Billing: Yes Source: Developed by Drs. Eulalio Nicole, Khalida Martinez, Marshall Mcqueen and colleagues, with an educational natalee from [employer]. Thrive Questionnaire Date Thrive assessed: 07/18/24 I am a: Patient What is your living situation today?: I have a steady place to live Within the past 12 months, did the food you bought not last and you didn't have the money to get more?: Never true Within the past 12 months, did you worry whether your food would run out before you got money to buy more?: Never true Do you have trouble paying for medicines?: No Do you have trouble getting transportation to medical appointments?: No Do you have trouble paying your heating and electricity bill?: No Do you have trouble taking care of your child, family member or friend?: No Do you have trouble with day-to-day activities such as bathing, preparing meals, shopping, managing finances, etc.?: No Are you interested in more education?: No Please select the resources that you would like help with: Housing/Jail Currently or been in a relationship where the following occur: No concerns reported THRIVE Score: 0 AUDIT C Alcohol Use Questionnaire (AUDIT-C) 1. How often do you have a drink containing alcohol?: Never 3. How often do you have six or more drinks on one occasion?: Never Total Score: 0 Score Reviewed/Action Taken: Yes BRANDON-7 AMB Questionnaire BRANDON-7 Date BRANDON - 7 assessed: 07/18/24 Feeling nervous, anxious, or on edge: 0 = Not at all Not being able to stop or control worryin = Not at all Worrying too much about different things: 0 = Not at all Trouble relaxin = Not at all Being so restless that it is hard to sit still: 0 = Not at all Becoming easily annoyed or irritable: 0 = Not at all Feeling afraid as if something awful might happen: 0 = Not at all Total BRANDON-7 score (0-4 normal; 5-9 mild; 10-14 moderate; 15-21 severe): 0 Source: Developed by Drs. Eulalio Nicole, Khalida Martinez, Marshall Mcqueen and colleagues, with an educational natalee from [employer]. BRANDON-7 Assessment Billing BRANDON-7 Assessment Tool: BRANDON-7 Assessment 44737 Review of Systems Const Reports as per HPI Physical exam (Primary Care) Vital Signs: Last Vital Signs Pulse 109 H 07/18/24 07:57 BP 124/80 07/18/24 07:57 Pulse Ox 95 07/18/24 07:57 Oxygen Delivery Method Room Air 07/18/24 07:57 BMI result Body Mass Index 42.8 Tobacco/Smoking Status: Tobacco use Status Tobacco use date assessed 03/25/24 07/18/24 08:03 Patient Tobacco Use Status Never used Tobacco 07/18/24 08:03 e-Cigarette/Vaping Use Never Used 07/18/24 08:03 PHQ-9: PHQ-9 Score PHQ-9: Total score 0 07/18/24 08:26 Depression Screening Interpretation: Negative Thrive Assessment: Date of Thrive Assessment Date Thrive assessed 07/18/24 07/18/24 08:20 Currently or been in a relationship where the following occur: No concerns reported Const General: cooperative Orientation/consciousness: patient oriented x3 Resp Effort & Inspection: normal respiratory effort Auscultation: clear to auscultation bilaterally Cardio Rate: regular rate Rhythm: regular rhythm Heart sounds: S1 normal heart sound present and S2 normal heart sound present Neuro General: patient oriented x3 Extrem Other: bilat feet: + sensation with use of monofilament, feet intact Psych Appearance: grossly normal Mental Status: mental status grossly normal Speech and movement: Normal speech and movement present Affect: normal affect Attitude: cooperative Thought process: Normal thought process present Thought content: Normal thought content present Insight: Good insight present (Psych) Judgement: Good judgement present (Psych) Immunizations pneumoc 20-aj conj-dip cr(PF) 0.5 mL IM syringe Performing Provider: KIERAN Toure Performing Location: [facility] Administered by: Ronit Antonio CMA on 07/18/24 08:29 Dose Route Admin Location Dispensed Lot Number Expiration Date [facility] [place] Public [employer] Director 0.5 mL IM Right Deltoid 0.5 mL [id number] 04/21/25 7652-9016-94 [email or web address] VIS Given Date VIS Provided VIS Publication Date 07/18/24 Single Vaccine 21 Eligibility Eligibility Date Funding Source Not [facility] Eligible 07/18/24 Private Assessment and Plan Assessment & Plan (1) Diabetes: Code(s): E11.9 - Type 2 diabetes mellitus without complications Plan: Labs ordered (2) Hypertension: Code(s): I10 - Essential (primary) hypertension Plan: stable, pt will cont to monitor at home (3) Anxiety: Code(s): F41.9 - Anxiety disorder, unspecified Plan: refuses therapist/medication currently, denies any si or hi Plan The patient agreed to the use of a medical support specialist for this encounter. Scribed for KIERAN Britt by Lashanda Jimenez medical support specialist, on 07/18/2024 at 08:10 EST. Orders: Orders Complete Blood Count Auto Diff Today E11.9 - Type 2 diabetes mellitus without complications Comprehensive [place]. Panel Fast Today E11.9 - Type 2 diabetes mellitus without complications Hemoglobin A1c Today E11.9 - Type 2 diabetes mellitus without complications TSH reflex Free T4 Today E11.9 - Type 2 diabetes mellitus without complications UA CC w/rflx Micro + Cult Today E11.9 - Type 2 diabetes mellitus without complications Lipid Panel Today E11.9 - Type 2 diabetes mellitus without complications Microalbumin, Random (w Creat) Today E11.9 - Type 2 diabetes mellitus without complications Pneumococcal 20 Immunization Today Z23 - Encounter for immunization Coding Level of Care Code Est Pt Level 3 (31044) Diagnoses Diabetes E11.9 Hypertension I10 Anxiety F41.9 Additional Codes BRANDON-7 Assessment Billing - BRANDON-7 Assessment Tool: BRANDON-7 Assessment 33846 ([id number])
== END 2024-07-18 09:13 | disposition home or self-care (01) ==
PROVIDERS: PCP Nurse Practitioner Family; Visit Provider Nurse Practitioner Family
DX: E11.9 Type 2 diabetes mellitus without complications (principal); I10 Essential (primary) hypertension; F41.9 Anxiety disorder, unspecified; Z23 Encounter for immunization

== ENCOUNTER 2024-07-18 10:42 | Outpatient (REF) | payer OTHER, SELFPAY ==
--- NOTE | ~2024-07-18 | US_ITS ---
EXAMINATION: US RETROPERITONEAL LIMITED (RENAL ONLY) CLINICAL INFORMATION: Calculus of kidney. COMPARISON: Renal ultrasound 06/06/2023 and 11/21/2022. CT abdomen and pelvis 07/07/2022. TECHNIQUE: Real-time imaging of the kidneys. FINDINGS: RIGHT KIDNEY: 9.7 x 4.4 x 6.5 cm (SAG x AP x TRV). The kidney is normal in size, contour, and echogenicity. Renal cortical thickness is normal. No focal parenchymal lesions or hydronephrosis. Echogenic foci noted in the mid and lower pole measuring 3 and 5 mm consistent with nonobstructing calculi. At the time of the prior study, a single calculus was present. LEFT KIDNEY: 10.6 x 5.3 x 5.1 cm (SAG x AP x TRV). The kidney is normal in size, contour, and echogenicity. Renal cortical thickness is normal. No calculi or focal parenchymal lesions. No hydronephrosis. ADDITIONAL FINDINGS: Incidental note made of an echogenic liver consistent with hepatic steatosis. US/US renal BI IMPRESSION: 1. Nonobstructing right renal calculi. 2. Incidentally noted hepatic steatosis. Electronically signed by: Elvis Zeng MD 08/21/2024 12:44 AM EDT
== END 2024-07-18 10:43 | disposition home or self-care (01) ==
LOC: HO.US 10:42
PROVIDERS: PCP Nurse Practitioner Family; Visit Provider Urology
DX: Z23 Encounter for immunization (principal); N20.0 Calculus of kidney; E11.9 Type 2 diabetes mellitus without complications; I10 Essential (primary) hypertension; F41.9 Anxiety disorder, unspecified
CPT/HCPCS: 76775; 90471; 90677; 96127

== ENCOUNTER 2024-08-01 15:12 | Outpatient (AMB) | payer OTHER, SELFPAY ==
--- NOTE | 2024-08-01 15:12 | A.OFFVIS_ITS ---
Intake Visit Reasons: 1y/US(set) Intake Note: Patient presents today for tele visit follow up on: nephrolithiasis and ultrasound results Imaging Completed: 07/18/24 Urology Med:none Antibiotic Allergy: None Blood Thinner: Aspirin Lumber Grader Required: No Allergies No Known Allergies Allergy (Verified 08/15/24 10:05) Medication List - Last Reconciled 08/01/24 by SHAE Wray blood sugar diagnostic (FreeStyle Lite Strips) Test blood sugar once a day blood-glucose meter (FreeStyle Lite Meter kit) As directed lancets (FreeStyle Lancets) Test blood sugar once a day pyridoxine (vitamin B6) 100 mg PO DAILY 90 days HPI Comments Details: Fatmata is a very pleasant 23-year-old female patient of Dr. Handy. She has a past medical history of scoliosis, nephrolithiasis, and pre diabetes. She is being followed up on today via video telehealth for nephrolithiasis. In discussion with the patient today she reports to be doing and feeling well. Recent renal imaging results reviewed with the patient today. Bilateral kidneys are normal in size, contour, and echogenicity. Left kidney with echogenic foci measuring 3 and 5 mL consistent with nonobstructing calculi left kidney with no renal calculi. No hydronephrosis noted bilaterally. She currently denies any bothersome urinary issues or concerns. She denies urinary urgency, urinary frequency, incontinence, nocturia, hematuria, dysuria, foul smelling urine, changes to urinary stream, flank pain, fever, and or chills. She is happy with her current voiding parameters. She reports to be drinking plenty of water daily. She discusses having stopped her vitamin B6 as she recently moved and has lost her prescription. She otherwise offers no other issues or concerns at this time. PREVIOUS OFFICE NOTE: Nephrolithiasis First-time stone former 07/14 Intervention - 07/14 R USR Composition - 07/14 - combination CaOx with carbonate 35% Imaging - 07/14 CT scan distal right 8 mm ureteric stone - 11/14 renal ultrasound 4 mm right, 2 mm left Therapeutic plan - hydration - interval imaging [facility] Medical History Gestational diabetes mellitus Spotting affecting in first trimester High risk due to history of previous obstetrical problem Scoliosis Renal calculi Prediabetes Surgical History History of oophorectomy, unilateral No pertinent past surgical history Family History Father No problems noted. Mother No problems noted. Paternal Grandmother Breast cancer Social History Housing: Apartment Alcohol intake: never Patient Tobacco Use Status: Never used Tobacco e-Cigarette/Vaping Use: Never Used Second Hand Smoke Exposure: No service: No Current occupational status: employed Current occupation: [employer] Current occupational exposures/hazards: No Cognitive needs: No Hearing needs: No Vision needs: No Review of Systems Const All systems reviewed & are unremarkable except as noted in HPI and below Physical Exam Const General: cooperative, healthy appearing, comfortable, no acute distress, well developed, alert and awake Orientation/consciousness: patient oriented x3 Limitations: no limitations Resp Effort & Inspection: normal respiratory effort and able to speak in complete sentences Neuro General: patient oriented x3 Psych Appearance: grossly normal and well kempt Mental Status: mental status grossly normal Speech and movement: Normal speech and movement present Affect: normal affect Attitude: cooperative Thought content: Normal thought content present Insight: Fair insight present (Psych) Judgement: Fair judgement present (Psych) Telehealth Telehealth Telehealth Platform: [facility] Location of provider rendering services: practice address Location of patient: address on file Patient Identification confirmed using: Name, : Yes Telehealth method: video Patient verbally consented to treatment: Yes Patient verbally consented to billing insurance company: Yes Patient informed of any privacy concerns related to visit: Yes Minutes spent on Phone/Video with Pt.: 15 Results Reviewed Results Reviewed: Date of Service: 07/18/24 EXAMINATION: US RETROPERITONEAL LIMITED (RENAL ONLY) FINDINGS: RIGHT KIDNEY: 9.7 x 4.4 x 6.5 cm (SAG x AP x TRV). The kidney is normal in size, contour, and echogenicity. Renal cortical thickness is normal. No focal parenchymal lesions or hydronephrosis. Echogenic foci noted in the mid and lower pole measuring 3 and 5 mm consistent with nonobstructing calculi. At the time of the prior study, a single calculus was present. LEFT KIDNEY: 10.6 x 5.3 x 5.1 cm (SAG x AP x TRV). The kidney is normal in size, contour, and echogenicity. Renal cortical thickness is normal. No calculi or focal parenchymal lesions. No hydronephrosis. ADDITIONAL FINDINGS: Incidental note made of an echogenic liver consistent with hepatic steatosis. IMPRESSION: 1. Nonobstructing right renal calculi. 2. Incidentally noted hepatic steatosis. Assessment & Plan Assessment & Plan (1) Nephrolithiasis: Code(s): N20.0 - Calculus of kidney Category: Medical Plan Recent renal imaging results reviewed with the patient today; as noted above. She currently denies any bothersome urinary issues or concerns. Discussed, educated, and stressed the importance of adequate hydration relation to nephrolithiasis Continue adding 1 oz of lemon juice to water daily. Continue vitamin B6; refill provided Will obtain renal ultrasound in 1 year. Follow-up in 1 year with imaging to be completed prior; or sooner with any issu es, concerns, and or questions. Orders: Orders US renal BI 1 Year N20.0 - Calculus of kidney Medications: New pyridoxine (vitamin B6) 100 mg PO DAILY 90 tabs 2RF 90 days Patient Instructions: The patient had an opportunity to ask questions regarding the treatment plan. All questions were answered. Physical exam, labs, and imaging were discussed and reviewed in detail. As well as risks, benefits, and discussion of treatment choices. No major barriers to understanding were identified. The patient expressed understanding and agreement with the above treatment plan. The patient was made aware they should contact our office by phone for worsening of their current condition, the appearance of new symptoms, or with any questions or concerns. Compliance is encouraged with any medications and follow up testing that is ordered. It is a privilege to be allowed the opportunity to participate in? your urological care.? Again, if you have any questions or concerns If you have any questions or concerns please do not hesitate to contact me. The office is [phone]. This note is constructed using voice recognition software. While every effort has been made to ensure accuracy stone cleaner errors may have been included. Yours sincerely, KIERAN Wray Coding Level of Care Code Tele Est Pt Level 3 (90664) Diagnoses Nephrolithiasis N20.0
== END 2024-08-01 15:50 | disposition home or self-care (01) ==
LOC: HO.HUSH 15:12
PROVIDERS: PCP Nurse Practitioner Family; Visit Provider Nurse Practitioner Family
DX: N20.0 Calculus of kidney (principal)
CPT/HCPCS: 99213

== ENCOUNTER → 2024-08-01 15:12 | Outpatient (BNVA) | payer OTHER, SELFPAY | PROVIDERS: PCP Nurse Practitioner Family; Visit Provider Nurse Practitioner Family ==

== ENCOUNTER 2024-08-15 09:41 | Outpatient (AMB) | payer OTHER, SELFPAY ==
[2024-08-15 10:01] VITALS: BP 124/80; PULSE 114; O2SAT 98; BMI 42.7
--- NOTE | 2024-08-15 10:01 | MHC.OFFWIV ---
Intake Vital Signs 08/15/24 10:01 Height 4 ft 11 in Weight 211 lb 4 oz BMI 42.7 BP 124/80 Blood Pressure Location Lt brachial Position Sitting Pulse 114 H Pulse Source Pulse Oximeter Pulse Oximetry (%) 98 Oxygen Delivery Method Room Air Intake Visit Reasons: EP-sore throat, headaches, lump rt ear Intake Note: Ptient here for headache, lump behind right ear and no longer has a sore throat. Patient Tobacco Use Status: Never used Tobacco Allergies No Known Allergies Allergy (Verified 08/15/24 10:05) Do you need a note to return to daycare/school/sports/work: Yes HPI EP-sore throat, headaches, lump rt ear HPI Details This note is constructed using voice recognition software. While every effort has been made to ensure accuracy, customs manager errors may have been included. The patient is a 23 year old female who presents to the clinic today with right-sided lymphadenopathy with slight headache, and right lower lip pain. She notes that her daughter recently was diagnosed with [id number] disease. Her daughter is 2 years old. She has been taking care of her daughter since the diagnosis. She initially had a sore throat which that has resolved, but has had no additional symptoms. She denies fever, chills, dysphagia, cough, shortness of breath. She has not tried anything to resolve the symptoms. [facility] Medical History Gestational diabetes mellitus Spotting affecting in first trimester High risk due to history of previous obstetrical problem Scoliosis Renal calculi Prediabetes Surgical History History of oophorectomy, unilateral No pertinent past surgical history Family History Father No problems noted. Mother No problems noted. Paternal Grandmother Breast cancer Social History Housing: Apartment Alcohol intake: never Patient Tobacco Use Status: Never used Tobacco e-Cigarette/Vaping Use: Never Used Second Hand Smoke Exposure: No service: No Current occupational status: employed Current occupation: [employer] Current occupational exposures/hazards: No Cognitive needs: No Hearing needs: No Vision needs: No Review of Systems Const All systems reviewed & are unremarkable except as noted in HPI and below Physical Exam Vital Signs: Last Vital Signs Pulse 114 H 08/15/24 10:01 BP 124/80 08/15/24 10:01 Pulse Ox 98 08/15/24 10:01 Oxygen Delivery Method Room Air 08/15/24 10:01 BMI result Body Mass Index 42.7 Const General: cooperative, healthy appearing, comfortable, no acute distress and well developed Orientation/consciousness: patient oriented x3 Limitations: no limitations HEENT Head: Yes normal to inspection Ears: hearing grossly normal bilaterally General nose exam: Normal external nose present Face and sinus: Yes normal facial exam Eyes General: appearance normal, both eyes and all related structures Neck Neck: Yes normal visual inspection and Yes full ROM Lymphatic: lymphadenopathy (Tender, mobile, approximately 0.5 cm.) right submandibular Resp Effort & Inspection: normal respiratory effort and able to speak in complete sentences Auscultation: clear to auscultation bilaterally Cardio Rate: regular rate Rhythm: regular rhythm Heart sounds: normal S1 and S2 Skin Other: Macular lesions to right lower lip, as well as upper forehead. Neuro General: patient oriented x3 Extrem General: Yes normal to inspection Assessment & Plan Assessment & Plan (1) Hand, foot and mouth disease: Code(s): B08.4 - Enteroviral vesicular stomatitis with exanthem Plan: Supportive measures encouraged and reviewed. Given that this is viral in origin, antibiotics would be inappropriate, discussed with patient. Advised patient to follow up with worsening symptoms or failure to resolve. Plan See above for full details and plan. Coding Level of Care Code Est Pt Level 3 (74339) Diagnoses Hand, foot and mouth disease B08.4
== END 2024-08-15 10:43 | disposition home or self-care (01) ==
PROVIDERS: PCP Nurse Practitioner Family; Visit Provider Registered Nurse
DX: B08.4 Enteroviral vesicular stomatitis with exanthem (principal)

== ENCOUNTER → 2024-08-15 09:41 | Outpatient (BNVA) | payer OTHER, SELFPAY | PROVIDERS: PCP Nurse Practitioner Family ==

== ENCOUNTER 2024-08-31 09:46 | Outpatient (AMB) | payer OTHER, SELFPAY ==
--- NOTE | 2024-08-31 10:33 | AM.OFFWIN_ITS ---
Intake Vital Signs 08/31/24 10:34 Height 4 ft 11 in Weight 211 lb BMI 42.6 BP 98/80 Blood Pressure Location Lt brachial Position Sitting Pulse 98 Pulse Source Pulse Oximeter Temp 98.8 F Temp Source Oral Pulse Oximetry (%) 94 Oxygen Delivery Method Room Air Intake Visit Reasons: EP- Chest pain, tingling rt side, pressure head Intake Note: Pt is here today c/o chest pain, tingling Rt arm and head pressure x3-4 days Patient Tobacco Use Status: Never used Tobacco Allergies No Known Allergies Allergy (Verified 08/31/24 11:06) Medication List - Last Reconciled 08/31/24 by Jaz Perry, INDUSTRIAL ECOLOGIST- blood sugar diagnostic (FreeStyle Lite Strips) Test blood sugar once a day blood-glucose meter (FreeStyle Lite Meter kit) As directed cetirizine (Allergy Relief (cetirizine)) 10 mg PO DAILY PRN hydrochlorothiazide 25 mg PO DAILY lancets (FreeStyle Lancets) Test blood sugar once a day losartan 25 mg PO DAILY pyridoxine (vitamin B6) 100 mg PO DAILY 90 days HPI HPI Comments History of Present Illness Details 23-year-old female with seasonal allergi es here today with complaints of cold symptoms that started about 10 days ago. 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 She has a 2-year-old daughter who was also sick. She reports that she has a headache, sinus pressure, generalized fatigue, runny nose, cough and some pain in her anterior chest when it is touched. Has tried Zyrtec without relief. Exam Awake alert NAD Sclera and conjunctiva clear bilat Nares with mucoid discharge, turbinates edematous and pale bilat, worse on the right, + tenderness with palpation bilat maxillary sinuses TM intact congestion bilat, worse on the right MMM, pharynx WNL RRR LS CTAB, positive costochondral tenderness on the left anterior chest wall Plan Treat with Augmentin. Advised to take with food. Supportive care always encouraged. Educated on reasons to return to the office or seek additional care. This note is constructed using voice recognition software. While every effort has been made to ensure accuracy in track surfacing machine operator, still errors may have been included Sometimes, these errors may affect the content or meaning of the given sentence . Total time spent caring for the patient today was 30 minutes. This includes time spent before the visit reviewing the chart, time spent during the visit, and time spent after the visit on documentation [facility] Medical History Gestational diabetes mellitus Spotting affecting in first trimester High risk due to history of previous obstetrical problem Scoliosis Renal calculi Prediabetes Surgical History History of oophorectomy, unilateral No pertinent past surgical history Family History Father No problems noted. Mother No problems noted. Paternal Grandmother Breast cancer Social History Housing: Apartment Alcohol intake: never Patient Tobacco Use Status: Never used Tobacco e-Cigarette/Vaping Use: Never Used Second Hand Smoke Exposure: No service: No Current occupational status: employed Current occupation: [employer] Current occupational exposures/hazards: No Cognitive needs: No Hearing needs: No Vision needs: No Physical Exam Vital Signs: Last Vital Signs Temp 98.8 F 08/31/24 10:34 Pulse 98 08/31/24 10:34 BP 98/80 08/31/24 10:34 Pulse Ox 94 08/31/24 10:34 Oxygen Delivery Method Room Air 08/31/24 10:34 BMI result Body Mass Index 42.6 Assessment & Plan Assessment & Plan (1) Costochondral chest pain: Code(s): R07.89 - Other chest pain Plan: . (2) Acute bacterial sinusitis: Code(s): J01.90 - Acute sinusitis, unspecified; B96.89 - Other specified bacterial agents as the cause of diseases classified elsewhere Plan: What Is It? Sinuses are air-filled spaces behind the bones of the upper face: between the eyes and behind the forehead, nose and cheeks. The lining of the sinuses are made up of cells with tiny hairs on their surfaces called cilia. Other cells in the lining produce mucus. The mucus traps germs and pollutants and the cilia push the mucus out through narrow sinus openings into the nose. When the sinuses become inflamed or infected, the mucus thickens and clogs the openings to one or more sinuses. Fluid builds up inside the sinuses causing increased pressure. Also bacteria can become trapped, multiply and infect the lining. This is sinusitis. Prevention There are some measures you can take to decrease your risk of developing sinusitis. If you smoke cigarettes, you should quit. The smoke can irritate nasal passageways and increase the likelihood of infection. Nasal allergies can trigger sinus infections, too. By identifying the allergen (the substance causing the allergic reaction) and avoiding it, you can help prevent sinusitis. If you have congestion from a cold or allergies, the following may help to reduce the risk of developing sinusitis: Drink lots of water. This thins nasal secretions and keeps mucous membranes moist. Use steam to soothe nasal passages. Breathe deeply while standing in a hot shower, or inhale the vapor from a basin filled with hot water while holding a towel over your head. Avoid blowing your nose with great force, which can push bacteria into the sinuses. Some doctors advise periodic home nasal washings to clear secretions. This may help prevent, and also treat, sinus infections. Treatment Many sinus infections improve without treatment. However, several medications may speed recovery and reduce the chance that an infection will become chronic. Decongestants - Congestion often triggers sinus infections, and decongestants can open the sinuses and allow them to drain. Several are available: Pseudoephedrine (Sudafed) is available without prescription, alone or in combination with other medications in multi-symptom cold and sinus remedies. Pseudoephedrine can cause insomnia, racing pulse and jitteriness. Do not use if you have high blood pressure or a heart condition. Phenylephrine (such as Sudafed PE) is an alternative qteu-jxv-klwxvip oral decongestant. If you take products containing oral phenylephrine, check with the pharmacist to be certain there is no interaction with other medications you take. Oxymetazoline (Afrin, Dristan and others) and phenylephrine (Juan-Synephrine and others) are found in nasal sprays. They are effective and may be less likely to cause the side effects seen with pseudoephedrine. However, using a nasal decongestant for more than three days can cause worse symptoms when you stop the medication. This is called the rebound effect. Antihistamines - These medications help to relieve the symptoms of nasal allergies that lead to inflammation and infections. However, some doctors advise against using antihistamines during a sinus infection because they can cause excessive drying and slow the drainage process. Fzxu-lek-vnctftb antihistamines include diphenhydramine (Benadryl and others), chlorpheniramine (Chlor-Trimeton and others) and loratadine (Claritin). Fexofenadine (Sita) and cetrizine (Zyrtec) are available by prescription. Nasal steroids - Anti-inflammatory sprays such as mometasone (Nasonex) and f luticasone (Flonase), both available by prescription, reduce swelling of nasal membranes. Like antihistamines, nasal steroids can be most useful for those who have nasal allergies. Nasal steroids tend to produce less drying than antihistamines. Unlike nasal decongestants, nasal steroids can be used for prolonged periods. Saline nasal sprays - These salt-water sprays are safe to use and can provide some relief by adding moisture to the nasal passages, thinning mucus secretions and helping to flush out any bacteria that may be present. Pain relievers - Acetaminophen (Tylenol), ibuprofen (Advil, Motrin and others) or naproxen (Aleve) can be taken sinus pain. Antibiotics - Your doctor may prescribe an antibiotic if he or she suspects that a bacterial infection is causing your sinusitis. If you start taking an antibiotic, complete the entire course so that the infection is completely killed off. Not all cases of sinusitis require antibiotic treatment: Talk with your doctor about whether an antibiotic is right for you. Keep in mind that antibiotics can cause side effects, such as allergic reactions, rash and diarrhea. In addition, overusing antibiotics eventually leads to the spread of bacteria that no longer can be killed by the most commonly prescribed antibiotics. When To Call A Professional Contact a doctor if you experience facial pain along with a headache and fever, cold symptoms that last longer than seven to 10 days, or persistent green discharge from the nose. If your symptoms don't improve within a week of beginning treatment, call your doctor. Call sooner if symptoms are getting worse. If you have repeated bouts of acute sinusitis, you may have allergies or another treatable cause of sinus congestion. Ask your doctor for advice. Plan . Coding Level of Care Code Est Pt Level 4 (25104) Diagnoses Costochondral chest pain R07.89 Acute bacterial sinusitis J01.90; B96.89
[2024-08-31 10:34] VITALS: BP 98/80; PULSE 98; TEMP 37.1; O2SAT 94; BMI 42.6
== END 2024-08-31 11:35 | disposition home or self-care (01) ==
PROVIDERS: PCP Nurse Practitioner Family; Visit Provider Nurse Practitioner Family
DX: R07.89 Other chest pain (principal); J01.90 Acute sinusitis, unspecified; B96.89 Other specified bacterial agents as the cause of diseases classified elsewhere

== ENCOUNTER → 2024-09-02 18:17 | Outpatient (BNV) | payer OTHER, SELFPAY | PROVIDERS: Emergency Provider Emergency Medicine; PCP Nurse Practitioner Family; Visit Provider Internal Medicine Cardiovascular Disease | DX: R07.9 Chest pain, unspecified (principal) | CPT/HCPCS: 93010 ==

== ENCOUNTER 2024-09-02 18:18 | Emergency (ER) | payer OTHER, SELFPAY ==
--- NOTE | 2024-09-02 | ECG_ITS ---
Test Reason : CP Blood Pressure : / mmHG Vent. Rate : 106 BPM Atrial Rate : 106 BPM P-R Int : 138 ms QRS Dur : 068 ms QT Int : 326 ms P-R-T Axes : 042 034 009 degrees QTc Int : 433 ms Sinus tachycardia Nonspecific T wave abnormality Abnormal ECG When compared with ECG of 05-JUL-2024 02:14, No significant change was found Referred By: Generic ED Physician Electronically Signed By:Danial Salazar
--- NOTE | ~2024-09-02 | XR_ITS ---
EXAMINATION: XR CHEST CLINICAL INFORMATION: Chest pain. COMPARISON: Chest radiograph 04/29/2024. TECHNIQUE: 2 views of the chest were obtained. FINDINGS: Normal appearance of the cardiomediastinal silhouette. No focal consolidation, pleural effusion or pneumothorax. No pulmonary edema. No acute osseous findings. XR/XR chest 2V IMPRESSION: No acute cardiopulmonary findings. Electronically signed by: Nataliia Gregorio MD 09/02/2024 08:40 PM LOLITA
[2024-09-02 18:27] VITALS: BP 149/69; PULSE 110; RESP 20; TEMP 36.8; O2SAT 95; BMI 42.4
[2024-09-02 18:48] LABS: MANUAL DIFF FLAG NO
[2024-09-02 18:49] LABS: Basophils Absolute Auto 0.1 X10*3/uL (0.0-0.2); Basophils Percent Auto 0.6 % (0-2); Eosinophils Absolute Auto 0.1 X10*3/uL (0.0-0.4); Eosinophils Percent Auto 1.2 % (0-4); Hematocrit 36.1 % (37.0-47.0); Hemoglobin 12.5 g/dl (12.0-16.0); Imm Gran Abs Auto 0.03 X10*3/uL (0.00-0.03); Imm Gran Pct Auto 0.3 % (0.0-0.4); Lymphocytes Absolute Auto 2.7 X10*3/uL (1.2-4.9); Lymphocytes Percent Auto 25.4 % (20-40); Mean Corpuscular HGB Conc 34.6 g/dl (31.0-35.0); Mean Corpuscular Hemoglobin 28.9 pg (27.0-33.0); Mean Corpuscular Volume 83.6 fL (80.0-98.0); Mean Platelet Volume 9.6 fL (9.4-12.3); Monocytes Absolute Auto 0.6 X10*3/uL (0.1-1.2); Monocytes Percent Auto 5.2 % (2-11); Neutrophils Absolute Auto 7.1 x10*3/uL (2.0-8.3); Neutrophils Percent Auto 67.3 % (45-73); Platelet Count 351 X10*3/uL (160-400); Red Blood Count 4.32 X10*6/uL (4.20-5.50); Red Cell Distribution Width 11.9 % (11.0-16.0); White Blood Count 10.5 X10*3/uL (4.8-10.8)
--- NOTE | 2024-09-02 18:51 | ED_ITS ---
HPI - Chest Pain General Chief Complaint: Chest Pain Stated Complaint: chest pain Source: patient Mode of arrival: ambulatory Limitations: no limitations History of Present Illness ED Provider: Rosanne Kaye PA-C HPI narrative: Patient is a 23 year old assigned female at with a history of BRANDON, migraines, and DM, presenting to the emergency department today with chest pain and a headache. Patient states that over the last few days she has had a headache and chest pain. Patient denies any dizziness, lightheadedness, abdominal pain, nausea, vomiting, fever, chills, blurry vision, double vision, loss of vision, difficulty breathing, shortness of breath, back pain, night sweats, pain with urination, increased urinary frequency, increased urinary urgency, blood in her urine or stool, syncope or a near syncopal episode, recent trauma or falls, bowel incontinence, bladder incontinence, or any other complaints at this time. Related Data Previous Rx's ?Medication ?Instructions ?Recorded blood sugar diagnostic (FreeStyle #100 ea 03/26/24 Lite Strips) blood-glucose meter (FreeStyle #1 ea 03/26/24 Lite Meter kit) lancets 28 gauge (FreeStyle #100 ea 03/26/24 Lancets) pyridoxine (vitamin B6) 100 mg 100 mg PO DAILY 90 days #90 tabs 08/01/24 tablet cetirizine 10 mg tablet (Allergy 10 mg PO DAILY PRN allergy 08/02/24 Relief (cetirizine)) symptoms #90 tabs hydrochlorothiazide 25 mg tablet 25 mg PO DAILY #30 tabs 08/02/24 losartan 25 mg tablet 25 mg PO DAILY #90 tabs 08/07/24 amoxicillin 875 mg-potassium 1 tab PO BID 7 days #14 tabs 08/31/24 clavulanate 125 mg tablet betamethasone dipropionate 0.05 % 1 appl topical DAILY PRN skin 09/04/24 topical ointment irritation #15 grams Allergies Allergy/AdvReac Type Severity Reaction Status Date / Time No Known Allergies Allergy Verified 09/03/24 09:28 Review of Systems 2 Constitutional: Constitutional: Reports no additional constitutional complaints, Denies chills, Denies fever(s), Reports headache(s) and Denies night sweats Eyes: Eyes: Reports no additional eye complaints, Denies blurry vision, Denies change in vision, Denies diplopia, Denies eye discharge, Denies loss of vision and Denies eye pain ENT: Denies dizziness and Reports headache(s) Cardiovascular: Cardiovascular: Reports no additional cardiovascular complaints, Reports chest pain, Denies lightheadedness, Denies Loss of Consciousness and Denies dyspnea Respiratory: Respiratory: Reports no additional respiratory complaints and Denies dyspnea Gastrointestinal: Gastrointestinal: Reports no additional gastrointestinal complaints, Denies abdominal pain, Denies melena, Denies hematochezia, Denies change in bowel habits and Denies change in stool character Genitourinary: Genitourinary: Denies hematuria, Denies urinary frequency, Denies dysuria, Denies urinary incontinence, Denies urinary hesitancy and Denies urinary urgency Musculoskeletal: Musculoskeletal: Reports no additional musculoskeletal complaints, Denies numbness and Denies tingling Neurologic: Denies dizziness, Reports headache(s), Denies loss of vision, Denies numbness and Denies tingling Psychiatric: Psychiatric: Reports no additional psychiatric complaints Endocrine: Endocrine: Reports no additional endocrine complaints Hematologic/Lymphatic: Hematologic/Lymphatic: Reports no additional hematologic/lymphatic complaints Allergic/Immunologic: Allergic/Immunologic: Reports no additional allergic/immunologic complaints [facility] Past Medical History Attestation statement: The following information was validated with the patient. Source: old records reviewed and nursing notes reviewed Medical History Generalized headaches Gestational diabetes mellitus Spotting affecting in first trimester High risk due to history of previous obstetrical problem Scoliosis Renal calculi Prediabetes Surgical History History of oophorectomy, unilateral No pertinent past surgical history Family History Family History Father No problems noted. Mother No problems noted. Paternal Grandmother Breast cancer Social History Social History Housing: Apartment Alcohol intake: never Patient Tobacco Use Status: Never used Tobacco e-Cigarette/Vaping Use: Never Used Second Hand Smoke Exposure: No service: No Current occupational status: employed Current occupation: [employer] Current occupational exposures/hazards: No Cognitive needs: No Hearing needs: No Vision needs: No Physical Exam 2 Vital Signs: Vital Signs: Last Vital Signs Temp 98.2 F 09/02/24 18:27 Pulse 110 H 09/02/24 18:27 Resp 20 09/02/24 18:27 BP 149/69 H 09/02/24 18:27 Pulse Ox 95 09/02/24 18:27 O2 Del Method Room Air 09/02/24 18:27 BMI result Body Mass Index 42.4 Const: General: cooperative, no acute distress, alert and awake Nutritional Appearance: well nourished Orientation/consciousness: patient oriented x3 Limitations: no limitations HEENT: Head: Yes normal to inspection and Yes atraumatic Ears: hearing grossly normal bilaterally and external ears normal General nose exam: Normal external nose present, no nasal discharge noted and no epistaxis Face and sinus: Yes normal facial exam, No abrasion and No laceration Mouth: Normal oral and palatal mucosa present, no drooling and no muffled voice Eyes: General: appearance normal, both eyes and all related structures P eriorbital: periorbital findings normal Eyelids: Yes eyelids normal C onjunctivae: conjunctivae normal Pupils: Equal, round and reactive pupils present EOM: EOMs intact bilaterally Neck: Neck: Yes normal visual inspection, Yes full ROM and Yes no lymphadenopathy Chest: Chest palpation & inspection: normal inspection of the chest Resp: Effort & Inspection: normal respiratory effort and able to speak in complete sentences GI: Inspection: Yes normal to inspection Neuro: General: patient oriented x3 and moves all extremities Cranial nerves: Yes Equal, round and reactive pupils present Cognition (Neuro): n ormal cognition Extrem: General: Yes normal to inspection, Yes full ROM and Yes capillary refill normal Psych: Appearance: grossly normal Mental Status: mental status grossly normal Affect: normal affect Attitude: cooperative Thought process: N ormal thought process present Thought content: Normal thought content present Insight: Good insight present (Psych) Course Course Course Narrative: RME performed by Rosanne Kaye PA-C. Patient is a 23 year old assigned female at presenting to the emergency department with chest pain. Detailed physical exam and review of systems are deferred to the chemical processing equipment repairer. EKG, labs, imaging, and swabs ordered. Patient placed back in the waiting room pending room availability and results. Medical Decision Making Medical Decision Making MDM Narrative: Patient is a 23 year old assigned female at with a history of BRANDON, migraines, and DM, presenting to the emergency department today with chest pain and a headache. Patient's limited physical exam performed in triage was unremarkable. Patient's blood work was unremarkable. Patient's EKG was unremarkable. Patient's chest x-ray showed no acute process. Patient left the department without completing treatment. Patient left the department before myself or any of the other emergency department clinicians could explain to or review with the patient; physical exam findings, test results, need or lack there of for additional testing, need or lack there of for a procedure to be performed, need or lack there of for hospital admission / transfer, need or lack there of for prescription medication, treatment options, or a treatment plan. Differential Diagnosis Differential Diagnoses: The differential diagnosis associated with the presentation includes Chest pain Atypical chest pain Admission/Observation Consideration of admission/observation: Escalation of care including admission/observation considered Patient would have been admitted to the hospital had she completed her work up and it had any findings where hospital admission was appropriate, her clinical presentation warranted hospital admission, had myself or any other emergency candy department manager had the ability to discuss need or lack there of for hospital admission, and the patient hadn't left the department without completing treatment. Lab Data [facility] Lab Attestation statement: I reviewed the patient's lab results. My interpretation of these results are in the [facility] Rationale portion of this note. 09/02/24 18:44 09/02/24 18:44 Labs: Lab Results 09/02/24 Range/Units 18:44 WBC 10.5 (4.8-10.8) X10*3/uL RBC 4.32 (4.20-5.50) X10*6/uL Hgb 12.5 (12.0-16.0) g/dl Hct 36.1 L (37.0-47.0) % MCV 83.6 (80.0-98.0) fL MCH 28.9 (27.0-33.0) pg MCHC 34.6 (31.0-35.0) g/dl RDW 11.9 (11.0-16.0) % Plt Count 351 (160-400) X10*3/uL MPV 9.6 (9.4-12.3) fL Immature Gran % (Auto) 0.3 (0.0-0.4) % Neut % (Auto) 67.3 (45-73) % Lymph % (Auto) 25.4 (20-40) % [place]ell % (Auto) 5.2 (2-11) % Eos % (Auto) 1.2 (0-4) % Baso % (Auto) 0.6 (0-2) % Lymph # (Auto) 2.7 (1.2-4.9) X10*3/uL [place]ell # (Auto) 0.6 (0.1-1.2) X10*3/uL Eos # (Auto) 0.1 (0.0-0.4) X10*3/uL Baso # (Auto) 0.1 (0.0-0.2) X10*3/uL Abs Immat Gran (auto) 0.03 (0.00-0.03) X10*3/uL Absolute Neuts (auto) 7.1 (2.0-8.3) x10*3/uL Absolute Nucleated RBC 0.000 (0.0-0.012) X10*3/uL Nucleated RBC % (auto) 0.0 (0.0-0.2) /100WBC Sodium 136 (135-145) mmol/L Potassium 3.3 (3.3-5.1) mmol/L Chloride 100 (96-108) mmol/L Carbon Dioxide 26 (22-29) mmol/L Anion Gap 13 (12-20) BUN 9 (9-16) mg/dL Creatinine 0.77 (0.5-1.4) mg/dL Estim Creat Clear Calc 112.9 Estimated GFR > 60 Random Glucose 185 H (60-115) mg/dL Calcium 9.7 (8.4-10.2) mg/dL Total Bilirubin 0.6 (0.0-1.0) mg/dL AST 21 (5-31) U/L ALT 30 (0-31) U/L Alkaline Phosphatase 84 (39-117) U/L Troponin I High Sens < 2.7 (<3.5-17.0) ng/L Total Protein 7.9 (6.5-8.0) g/dL Albumin 4.2 (3.5-5.0) g/dL Beta HCG, Quant < 2 mIU/mL Independent Interpretation I performed an independent interpretation of an: EKG and Plain X-Ray Interpretation: My interpretation is in agreement with the radiologist's impression of this imaging study. L EXAMINATION: XR CHEST CLINICAL INFORMATION: Chest pain. COMPARISON: Chest radiograph 04/29/2024. TECHNIQUE: 2 views of the chest were obtained. FINDINGS: Normal appearance of the cardiomediastinal silhouette. No focal consolidation, pleural effusion or pneumothorax. No pulmonary edema. No acute osseous findings. XR/XR chest 2V IMPRESSION: No acute cardiopulmonary findings. Electronically signed by: Nataliia Gregorio MD 09/02/2024 08:40 PM EST Dictated By: Nataliia Gregorio Signed By: Electronically signed by Nataliia Gregorio 09/02/240 Vent. Rate: 106 BPM Atrial Rate: 106 BPM P-R Int: 138 ms QRS Dur: 068 ms QT Int: 326 ms P-R-T Axes: 042 034 009 degrees QTc Int: 433 ms Sinus tachycardia Nonspecific T wave abnormality Abnormal ECG When compared with ECG of 05-JUL-2024 02:14, No significant change was found Referred By: Generic ED Physician Electronically Signed By:Danial Salazar Dictated By: Danial Salazar MD Signed By: Electronically signed by Danial Salazar MD 09/03/24 1519 Radiology Impression Discussion of test interpretation with radiology: I have reviewed the radiologist's reading. Discharge Plan Discharge Clinical Impression: Chest pain Patient Disposition: Left W/O Completing Treatment Prescriptions: No Action (DME) FreeStyle Lite Strips Strip See Rx Instructions .Route Qty: 100 1RF Rx Instructions: Test blood sugar once a day (DME) blood-glucose meter [FreeStyle Lite Meter] Kit See Rx Instructions .Route Qty: 1 0RF Rx Instructions: As directed (DME) lancets [FreeStyle Lancets] 28 gauge misc See Rx Instructions .Route Qty: 100 1RF Rx Instructions: Test blood sugar once a day hydrochlorothiazide 25 mg tablet 25 mg PO DAILY Qty: 30 2RF cetirizine [Allergy Relief (cetirizine)] 10 mg tablet 10 mg PO DAILY PRN (Reason: allergy symptoms) Qty: 90 0RF losartan 25 mg tablet 25 mg PO DAILY Qty: 90 0RF betamethasone dipropionate 0.05 % ointment 1 appl topical DAILY PRN (Reason: skin irritation) Qty: 15 0RF pyridoxine (vitamin B6) 100 mg tablet 100 mg PO DAILY 90 Days Qty: 90 2RF amoxicillin-pot clavulanate 875-125 mg tablet 1 tab PO BID 7 Days Qty: 14 0RF Discharge Date/Time: 09/03/24 02:01
[2024-09-02 19:22] LABS: Alanine Aminotransferase 30 U/L (0-31); Albumin Level 4.2 g/dL (3.5-5.0); Alkaline Phosphatase 84 U/L (39-117); Anion Gap 13 (12-20); Aspartate Amino Transferase 21 U/L (5-31); Bilirubin Total 0.6 mg/dL (0.0-1.0); Blood Urea Nitrogen 9 mg/dL (9-16); Calcium 9.7 mg/dL (8.4-10.2); Carbon Dioxide 26 mmol/L (22-29); Chloride 100 mmol/L (96-108); Creatinine Clr Calc Pharmacy 112.9; Estimated Glomerular Filt Rate > 60; Glucose Random 185 mg/dL (60-115); HCG Quantitative < 2 mIU/mL; Potassium 3.3 mmol/L (3.3-5.1); Sodium 136 mmol/L (135-145); Total Protein 7.9 g/dL (6.5-8.0)
[2024-09-02 19:26] LABS: Troponin-I High Sensitivity < 2.7 ng/L (<3.5-17.0)
--- NOTE | 2024-09-03 02:01 | PC.NURSE ---
Pt no answer when called for reassessment.
== END 2024-09-03 02:01 | disposition left against medical advice (07) ==
PROVIDERS: Physician Assistant Medical; Emergency Provider Emergency Medicine; PCP Nurse Practitioner Family
DX: R07.89 Other chest pain (principal); E11.9 Type 2 diabetes mellitus without complications; R94.31 Abnormal electrocardiogram [ECG] [EKG]; R10.2 Pelvic and perineal pain; Z79.899 Other long term (current) drug therapy
CPT/HCPCS: 36415; 71046; 80053; 84484; 84702; 85025; 93005; 99283

== ENCOUNTER 2024-09-03 08:25 | Outpatient (AMB) | payer OTHER, SELFPAY ==
--- NOTE | 2024-09-03 09:25 | AM.OFFWIN_ITS ---
Intake Vital Signs 09/03/24 09:26 Height 4 ft 11 in Weight 210 lb BMI 42.4 BP 128/80 Blood Pressure Location Lt brachial Position Sitting Pulse 78 Pulse Source Pulse Oximeter Pulse Oximetry (%) 97 Oxygen Delivery Method Room Air Intake Visit Reasons: EP Head pressure/?Sinus infection Intake Note: Patient here for headaches that have been present for about 5-6 days. Patient Tobacco Use Status: Never used Tobacco Allergies No Known Allergies Allergy (Verified 09/03/24 09:28) Do you need a note to return to daycare/school/sports/work: No HPI HPI Comments History of Present Illness Details 23 y/o female patient who presents to [facility] walk in clinic with c/o headaches that have been constant for 2 days now. She was seen yesterday at [facility] [place] ED for chest pains and headaches. She left AMA before was examined. Imaging and Labs all WNL. She was prescribed Abx for Sinus infection. Denies dizziness, or vision changes. Denies nausea or vomiting. [facility] Medical History (Updated 09/03/24 @ 09:50 by Esme Seaman NP) Generalized headaches Gestational diabetes mellitus Spotting affecting in first trimester High risk due to history of previous obstetrical problem Scoliosis Renal calculi Prediabetes Surgical History History of oophorectomy, unilateral No pertinent past surgical history Family History Father No problems noted. Mother No problems noted. Paternal Grandmother Breast cancer Social History Housing: Apartment Alcohol intake: never Patient Tobacco Use Status: Never used Tobacco e-Cigarette/Vaping Use: Never Used Second Hand Smoke Exposure: No service: No Current occupational status: employed Current occupation: [employer] Current occupational exposures/hazards: No Cognitive needs: No Hearing needs: No Vision needs: No Review of Systems Const All systems reviewed & are unremarkable except as noted in HPI and below Physical Exam Vital Signs: Last Vital Signs Pulse 78 09/03/24 09:26 BP 128/80 09/03/24 09:26 Pulse Ox 97 09/03/24 09:26 Oxygen Delivery Method Room Air 09/03/24 09:26 BMI result Body Mass Index 42.4 Const General: cooperative and no acute distress Nutritional Appearance: overweight Orientation/consciousness: patient oriented x3 HEENT Head: Yes normocephalic Resp Effort & Inspection: normal respiratory effort Auscultation: clear to auscultation bilaterally Cardio Heart sounds: S1 normal heart sound present and S2 normal heart sound present Neuro General: patient oriented x3, gait normal and moves all extremities Psych Speech and movement: Normal speech and movement present Assessment & Plan Assessment & Plan (1) Generalized headaches: Code(s): R51.9 - Headache, unspecified Plan: Rest, gave work note Hydrate well Acetaminophen for pain relief Continue on prescribed Abx. Coding Level of Care Code Est Pt Level 3 (41980) Diagnoses Generalized headaches R51.9 Time Spent (min) 15
[2024-09-03 09:26] VITALS: BP 128/80; PULSE 78; O2SAT 97; BMI 42.4
== END 2024-09-03 09:50 | disposition home or self-care (01) ==
PROVIDERS: PCP Nurse Practitioner Family; Visit Provider Nurse Practitioner Family
DX: R51.9 Headache, unspecified (principal)

== ENCOUNTER 2024-09-03 09:50 | Outpatient (REF) | payer OTHER, SELFPAY ==
[2024-09-03 13:17] LABS: MANUAL DIFF FLAG NO
[2024-09-03 13:31] LABS: Appearance Urine Clear; Color Urine Yellow; Glucose Urine UA Negative (Negative); Leukocyte Esterase Urine Trace (Negative); Nitrite Urine Negative (Negative); UMIC TRIGGER UACC YES; Urine Blood Negative (Negative); Urine Ketones 15 mg/dL (Negative); Urine Protein Negative (Neg-Trace)
[2024-09-03 13:35] LABS: Bacteria Urine None Seen (None Seen); Hyaline Casts Urine 0-2 /LPF (0-2); RBC Urine 0-2 /HPF (0-2); WBC Urine 0-5 /HPF (0-5)
[2024-09-03 13:37] LABS: Basophils Absolute Auto 0.1 X10*3/uL (0.0-0.2); Basophils Percent Auto 0.6 % (0-2); Eosinophils Absolute Auto 0.1 X10*3/uL (0.0-0.4); Eosinophils Percent Auto 1.3 % (0-4); Hematocrit 38.3 % (37.0-47.0); Hemoglobin 12.7 g/dl (12.0-16.0); Imm Gran Abs Auto 0.03 X10*3/uL (0.00-0.03); Imm Gran Pct Auto 0.3 % (0.0-0.4); Lymphocytes Percent Auto 22.4 % (20-40); Mean Corpuscular HGB Conc 33.2 g/dl (31.0-35.0); Mean Corpuscular Hemoglobin 28.8 pg (27.0-33.0); Mean Corpuscular Volume 86.8 fL (80.0-98.0); Mean Platelet Volume 10.4 fL (9.4-12.3); Monocytes Absolute Auto 0.5 X10*3/uL (0.1-1.2); Monocytes Percent Auto 5.9 % (2-11); Neutrophils Absolute Auto 6.3 x10*3/uL (2.0-8.3); Neutrophils Percent Auto 69.5 % (45-73); Platelet Count 369 X10*3/uL (160-400); Red Blood Count 4.41 X10*6/uL (4.20-5.50)
[2024-09-03 13:49] LABS: Estimated Average Glucose 140 mg/dL; Hemoglobin A1C 159.9502 umol/L; Hemoglobin A1c % 6.5 % (<6.0); Total Hemoglobin (HGBA1C) 3348.1403 umol/L
[2024-09-03 14:15] LABS: Alanine Aminotransferase 29 U/L (0-31); Albumin Level 4.2 g/dL (3.5-5.0); Alkaline Phosphatase 86 U/L (39-117); Anion Gap 10 (12-20); Aspartate Amino Transferase 25 U/L (5-31); Bilirubin Total 0.7 mg/dL (0.0-1.0); Blood Urea Nitrogen 11 mg/dL (9-16); Calcium 9.7 mg/dL (8.4-10.2); Carbon Dioxide 27 mmol/L (22-29); Chloride 102 mmol/L (96-108); Cholesterol 123 mg/dL (<200); Estimated Glomerular Filt Rate > 60; Glucose Fasting 140 mg/dL (60-99); HDL Cholesterol 45 mg/dL (>40); LDL Cholesterol Calculated 65 mg/dL (<100); Potassium 3.3 mmol/L (3.3-5.1); Sodium 136 mmol/L (135-145); Total Protein 7.9 g/dL (6.5-8.0); Triglycerides 69 mg/dL (<150)
[2024-09-03 14:36] LABS: TSH reflex Free T4 0.95 uIU/mL (0.32-4.0)
[2024-09-03 14:59] LABS: Creatinine Urine 211.53 mg/dL; Microalbum/Creatinine Ratio Ur 8.9 ug/mg cr (<30)
== END 2024-09-03 09:51 | disposition home or self-care (01) ==
LOC: HO.HMGCLDS 09:50
PROVIDERS: PCP Nurse Practitioner Family; Visit Provider Nurse Practitioner Family
DX: E11.9 Type 2 diabetes mellitus without complications (principal)
CPT/HCPCS: 36415; 80053; 80061; 81001; 82043; 82570; 83036; 84443; 85025

== ENCOUNTER 2024-10-10 08:50 | Outpatient (AMB) | payer OTHER, SELFPAY ==
[2024-10-10 08:55] VITALS: BP 130/70; PULSE 110; O2SAT 97; BMI 42.6
--- NOTE | 2024-10-10 08:55 | MHC.PC.OV ---
Vital Signs 10/10/24 08:55 10/10/24 09:13 Height 4 ft 11 in Weight 211 lb BMI 42.6 BP 130/70 Blood Pressure Location Rt brachial Position Sitting Pulse 110 H 94 Pulse Source Pulse Oximeter Pulse Oximetry (%) 97 Intake Visit Reasons: PE Intake Note: pt is here for PE Pharmacy Tech Customer Service Required: No Allergies No Known Allergies Allergy (Verified 10/10/24 08:55) Tobacco use date assessed: 03/25/24 Dental Screening Dental Screen Date: 03/25/24 HPI PE HPI Details History of Present Illness The patient is a 23-year-old female presenting for medication management while planning to conceive. She has a medical history notable for Type 2 Diabetes Mellitus with a recent Hemoglobin A1c of 6.5%, which has gradually improved from prior readings of 6.7%, 6.4%, and 6.3%. She has well-controlled essential hypertension which was notably high during her previous , though she did not experience preeclampsia. Health Maintenance - Discussed pneumococcal vaccination (Pneumovax 23) for additional protection. - Blood pressure management, noting its significance during . - Diabetes management through lifestyle and medication adjustments. Social History - Planning for another child, already has one daughter. - Recent experience with her daughter's adverse response to flu vaccination, influencing future vaccination decisions. Review of Systems - General: Denies recent headaches or swelling despite a history of high blood pressure in . - Cardiovascular: Reports history of high blood pressure during last . - Endocrine: Reports history of well-controlled diabetes mellitus. denies any sob, CP, blood in stool, constipation, diarrhea, SI or HI, numbness tingling. Physical Exam General: Cooperative, healthy appearing, comfortable, no acute distress and well developed, obese Orientation: Patient oriented x3 Limitations: No limitations Head: Normal to inspection Ears: Hearing grossly normal bilaterally, eardrum looks good, but the patient reports occasional pressure in one ear Nose: Normal external nose present Face and sinus: Normal facial exam Eyes: Appearance normal, both eyes and all related structures Neck: Normal visual inspection and Yes full ROM Respiratory: Normal respiratory effort and able to speak in complete sentences. Clear to auscultation bilaterally Cardiovascular: Regular rate and rhythm. Normal S1 and S2 GI: Normal to inspection. Soft to palpation and nontender Skin: No rashes or lesions noted Neuro: Patient oriented x3, feet are intact, + sensation Extremities: Normal to inspection Results - Labs: Hemoglobin A1c at 6.5%. Plan - Discontinue medications that may adversely affect ; provide alternatives for hypertension management during . - Continue monitoring and improving blood sugar levels and lipidemia. - Consider and discuss influenza vaccination risk versus benefit based on past experiences with daughter post-vaccination adverse effects. - Recommend lifestyle modifications to support overall health and diabetic control. Patient was informed and verbally consented to the use of an ambient scribe for clinic note documentation during this visit. Discussion Notes We discussed her management plan with a focus on discontinuing potentially contraindicated medications for . Management of her diabetes and hypertension remains a priority, with emphasis on maintaining controlled levels during attempted conception. I reassured her regarding the possibility of using -safe alternatives for blood pressure management. We deliberated on the risks and benefits of vaccinations, particularly the flu shot, in light of her daughter's past adverse experiences. I emphasized preventative health and advised on further consultations should she conceive. Patient Instructions - Discontinue any medications contraindicated during as discussed. - Follow lifestyle recommendations to manage diabetes and blood pressure. - Consider the risks and benefits of vaccinations, especially flu shots, based on personal and family experiences. - Contact the office if there are any further concerns regarding blood pressure management during attempts. ON LICENSE OF [facility] Medical History Generalized headaches Gestational diabetes mellitus Spotting affecting in first trimester High risk due to history of previous obstetrical problem Scoliosis Renal calculi Prediabetes Surgical History History of oophorectomy, unilateral No pertinent past surgical history Family History Father No problems noted. Mother No problems noted. Paternal Grandmother Breast cancer Social History Housing: Apartment Alcohol intake: never Patient Tobacco Use Status: Never used Tobacco e-Cigarette/Vaping Use: Never Used Second Hand Smoke Exposure: No service: No Current occupational status: employed Current occupation: [employer] Current occupational exposures/hazards: No Cognitive needs: No Hearing needs: No Vision needs: No Questionnaire PHQ-9 Over the last 2 weeks, how often have you been bothered by any of the following problems? 10367 - PHQ-9 Billing: Patient declined-do not bill Source: Developed by Drs. Eulalio Nicole, Khalida Martinez, Marshall Mcqueen and colleagues, with an educational natalee from [employer]. Thrive Questionnaire Date Thrive assessed: 10/10/24 I am a: Patient What is your living situation today?: I have a steady place to live Within the past 12 months, did the food you bought not last and you didn't have the money to get more?: Never true Within the past 12 months, did you worry whether your food would run out before you got money to buy more?: Never true Do you have trouble paying for medicines?: No Do you have trouble getting transportation to medical appointments?: No Do you have trouble paying your heating and electricity bill?: No Do you have trouble taking care of your child, family member or friend?: No Do you have trouble with day-to-day activities such as bathing, preparing meals, shopping, managing finances, etc.?: No Are you currently unemployed and looking for a job?: No Are you interested in more education?: No Please select the resources that you would like help with: Housing/[facility] Currently or been in a relationship where the following occur: No concerns reported THRIVE Score: 0 BARNDON-7 AMB Questionnaire BRANDON-7 Date BRANDON - 7 assessed: 07/18/24 Source: Developed by Drs. Eulalio Nicole, Khalida Martinez, Marshall Mcqueen and colleagues, with an educational natalee from [employer]. Physical exam (Primary Care) Vital Signs: Last Vital Signs Pulse 110 H 10/10/24 08:55 BP 130/70 10/10/24 08:55 Pulse Ox 97 10/10/24 08:55 BMI result Body Mass Index 42.6 Tobacco/Smoking Status: Tobacco use Status Tobacco use date assessed 03/25/24 10/10/24 08:58 Patient Tobacco Use Status Never used Tobacco 10/10/24 08:58 e-Cigarette/Vaping Use Never Used 10/10/24 08:58 Thrive Assessment: Date of Thrive Assessment Date Thrive assessed 10/10/24 10/10/24 08:58 Currently or been in a relationship where the following occur: No concerns reported Coding Level of Care Code Est Pt Prev Care 18-39y([id number]) Diagnoses Physical exam Z00.00 Diabetes E11.9 Assessment & Plan Assessment & Plan (1) Physical exam: Code(s): Z00.00 - Encounter for general adult medical examination without abnormal findings Category: Medical (2) Diabetes: Code(s): E11.9 - Type 2 diabetes mellitus without complications Category: Medical Plan .
[2024-10-10 09:13] VITALS: PULSE 94
== END 2024-10-10 09:17 | disposition home or self-care (01) ==
PROVIDERS: PCP Nurse Practitioner Family; Visit Provider Nurse Practitioner Family
DX: Z00.00 Encounter for general adult medical examination without abnormal findings (principal); E11.9 Type 2 diabetes mellitus without complications

== ENCOUNTER 2024-10-23 20:00 | Emergency (ER) | payer OTHER, SELFPAY ==
[2024-10-23 20:02] VITALS: BP 155/79; PULSE 111; RESP 20; TEMP 36.7; O2SAT 98; BMI 42.4
--- NOTE | 2024-10-23 20:05 | ED_ITS ---
HPI - General Adult General Chief complaint: Allergic Reaction Stated complaint: Allergic Rx Time Seen by Provider: 10/23/24 21:11 Source: patient and family Mode of arrival: ambulatory Limitations: no limitations History of Present Illness ED Provider: DR. Morales HPI narrative: 24-year-old female came in for evaluation of a sudden onset of lip and hand swelling with itching and rash is on her extremities and torso, patient declined eating any new food or taking new medication, the only event happened today that by mistake she put her baby diaper in the laundry washer as a result the diaper was exploded and the patient thinks she is allergic to the material inside the diaper. Patient received prednisone, Benadryl, Pepcid in the emergency department now patient has no itching, no rashes, improvement of the lip swelling. Related Data Previous Rx's ?Medication ?Instructions ?Recorded blood sugar diagnostic (FreeStyle #100 ea 03/26/24 Lite Strips) blood-glucose meter (FreeStyle #1 ea 03/26/24 Lite Meter kit) lancets 28 gauge (FreeStyle #100 ea 03/26/24 Lancets) pyridoxine (vitamin B6) 100 mg 100 mg PO DAILY 90 days #90 tabs 08/01/24 tablet cetirizine 10 mg tablet (Allergy 10 mg PO DAILY PRN allergy 08/02/24 Relief (cetirizine)) symptoms #90 tabs hydrochlorothiazide 25 mg tablet 25 mg PO DAILY #30 tabs 08/02/24 losartan 25 mg tablet 25 mg PO DAILY #90 tabs 08/07/24 betamethasone dipropionate 0.05 % 1 appl topical DAILY PRN skin 09/04/24 topical ointment irritation #15 grams ibuprofen 800 mg tablet 800 mg PO Q8H PRN pain 30 days #90 09/18/24 tabs lidocaine 4 % topical patch 1 patch topical DAILY PRN pain 30 09/26/24 (AsperFlex (lidocaine)) days #30 ea diphenhydramine HCl 25 mg capsule 25 mg PO BEDTIME PRN allergic 10/23/24 (Benadryl) reaction #20 caps famotidine 20 mg tablet (Pepcid) 20 mg PO BID #6 tabs 10/23/24 prednisone 20 mg tablet 20 mg PO BID #6 tabs 10/23/24 Allergies Allergy/AdvReac Type Severity Reaction Status Date / Time No Known Allergies Allergy Verified 10/23/24 20:05 Review of Systems Review of Systems: All other systems are reviewed and are negative Constitutional: Reports as per HPI and Reports no additional constitutional complaints Eyes: Reports as per HPI and Reports no additional eye complaints Reports system reviewed and no additional complaints, except as documented Cardiovascular: Reports as per HPI and Reports no additional cardiovascular complaints Respiratory: Reports as per HPI and Reports no additional respiratory complaints Gastrointestinal: Reports as per HPI and Reports no additional gastrointestinal complaints Genitourinary: Reports no additional female genitourinary complaints Musculoskeletal: Reports no additional musculoskeletal complaints Skin/Breast: Reports system reviewed and no additional complaints, except as docu Psychiatric: Reports no additional psychiatric complaints Endocrine: Reports no additional endocrine complaints Hematologic/Lymphatic: Reports no additional hematologic/lymphatic complaints Allergic/Immunologic: Reports no additional allergic/immunologic complaints Reports system reviewed and no additional complaints, except as documented and Reports Abnormal speech present [facility] Past Medical History Medical History Generalized headaches Gestational diabetes mellitus Spotting affecting in first trimester High risk due to history of previous obstetrical problem Scoliosis Renal calculi Prediabetes Surgical History History of oophorectomy, unilateral No pertinent past surgical history Family History Family History Father No problems noted. Mother No problems noted. Paternal Grandmother Breast cancer Social History Social History Housing: Apartment Alcohol intake: never Patient Tobacco Use Status: Never used Tobacco e-Cigarette/Vaping Use: Never Used Second Hand Smoke Exposure: No Advance Directives: No Advance Directives Information Provided: Yes service: No Current occupational status: employed Current occupation: [employer] Current occupational exposures/hazards: No Cognitive needs: No Hearing needs: No Vision needs: No Physical Exam ED Vital Signs: Vital Signs - 24 hr 10/23/24 20:02 Temperature 98.1 F Pulse Rate 111 H Respiratory Rate 20 Blood Pressure 155/79 H Pulse Oximetry 98 Oxygen Delivery Method Room Air BMI result Body Mass Index 42.4 Vital signs have been reviewed and appear to be correct. Blood pressure elevated. Heart rate elevated. Respiratory rate normal. Temperature normal. Oxygen saturation normal. Appearance: Alert. Oriented X3. No acute distress. Head: Normal external exam. Normocephalic. Atraumatic. No Childs signs noted. No raccoon eyes noted Eyes: PERRLA. EOMI. Conjunctiva and sclera normal. Eyelids normal. ENT: TM's Normal. Pharynx normal. Uvula midline. Moist mucous membranes. No trismus noted. No drooling noted. No muffled voice noted. No stridor, patent airway. Neck: Normal inspection. Neck supple. FROM. No adenopathy. Thyroid Normal. No meningeal signs. No neck mass noted. CVS: Normal heart rate and rhythm. Heart sound normal. No murmurs noted. Pulses normal throughout. Respiratory: No respiratory distress. Painless inspiration. Breath sounds normal. No wheezes/rales/rhonchi noted. Chest nontender. No accessory muscle usage noted or decreased air movement noted. Abdomen: Soft and nontender. Bowel sounds normal in all 4 quadrants. No distention noted. No organomegaly noted. No visible injury noted. Back: No CVA tenderness. Full range of motion noted. Skin: Skin warm and dry. Normal skin color. Normal skin turgor. No rashes/lesions/lacerations noted. Extremities: No lower extremity edema. Extremities exhibit normal range of motion. Extremities nontender. Neuro: Oriented X 3. Cranial nerve exam: II-XII are grossly intact No motor deficit. No sensory deficit. Reflexes normal. Course Course Course Narrative: RME, this is a rapid medical exam performed by Joe Valladares please refer to primary provider for complete H&P- 24-year-old female presents for evaluation of what she believes to be an allergic reaction. She has no known allergies. Denies any new medications or foods. She states about an hour ago her symptoms started with swelling to the face, lips and throat. She also has a itchy rash starting on her right wrist. Her toddler put several diapers through the wash which exploded in the wash, that is the only thing out of the ordinary the patient can think of that could have triggered this reaction. Lungs are clear without stridor. The patient does have some perioral edema and urticaria to the right wrist. Plan for Benadryl, Pepcid, prednisone and close observation Reevaluation(s) Reevaluation #1: 24-year-old female presented with itching, rash and lip swelling after exposed to a excluded diaper in the washing machine, patient improved after was given prednisone, Benadryl, Pepcid in the emergency department. Will discharge the patient on 2 days short course of prednisone, Benadryl, and Pepcid. Time: 21:45 Medications Administered Discontinued Medications Generic Name Dose Route Start Last Admin Trade Name Freq PRN Reason Stop Dose Admin Diphenhydramine HCl 50 mg 10/23/24 20:06 10/23/24 20:13 Diphenhydramine Hcl 25 Mg Capsule PO 10/23/24 20:07 50 mg ONCE ONE Administration Famotidine 20 mg 10/23/24 20:06 10/23/24 20:14 Famotidine 20 Mg Tablet PO 10/23/24 20:07 20 mg ONCE ONE Administration Prednisone 60 mg 10/23/24 20:06 10/23/24 20:14 Prednisone 20 Mg Tablet PO 10/23/24 20:07 60 mg ONCE ONE Administration Medical Decision Making Differential Diagnosis Differential Diagnoses: The differential diagnosis associated with the presentation includes (Angioedema, allergic reaction.) Admission/Observation Consideration of admission/observation: Escalation of care including admission/observation considered Discharge Plan Discharge Clinical Impression: Allergic reaction Patient Disposition: Home, Self-Care Instructions: General Allergic Reaction (ED) Prescriptions: New prednisone 20 mg tablet 20 mg PO BID Qty: 6 0RF diphenhydramine HCl [Benadryl] 25 mg capsule 25 mg PO BEDTIME PRN (Reason: allergic reaction) Qty: 20 0RF famotidine [Pepcid] 20 mg tablet 20 mg PO BID Qty: 6 0RF No Action (DME) FreeStyle Lite Strips Strip See Rx Instructions .Route Qty: 100 1RF Rx Instructions: Test blood sugar once a day (DME) blood-glucose meter [FreeStyle Lite Meter] Kit See Rx Instructions .Route Qty: 1 0RF Rx Instructions: As directed (DME) lancets [FreeStyle Lancets] 28 gauge misc See Rx Instructions .Route Qty: 100 1RF Rx Instructions: Test blood sugar once a day hydrochlorothiazide 25 mg tablet 25 mg PO DAILY Qty: 30 2RF cetirizine [Allergy Relief (cetirizine)] 10 mg tablet 10 mg PO DAILY PRN (Reason: allergy symptoms) Qty: 90 0RF losartan 25 mg tablet 25 mg PO DAILY Qty: 90 0RF betamethasone dipropionate 0.05 % ointment 1 appl topical DAILY PRN (Reason: skin irritation) Qty: 15 0RF ibuprofen 800 mg tablet 800 mg PO Q8H PRN (Reason: pain) 30 Days Qty: 90 0RF lidocaine [AsperFlex (lidocaine)] 4 % adhesive patch,medicated 1 patch topical DAILY PRN (Reason: pain) 30 Days Qty: 30 0RF pyridoxine (vitamin B6) 100 mg tablet 100 mg PO DAILY 90 Days Qty: 90 2RF Referrals: Ignacio Bravo, [employer] ENGINEER-[facility] [Primary Care Provider] - Print Language: Sri Lankan
[2024-10-23] MEDS: diphenhydrAMINE HCL 25 MG CAPSULE 50 MG PO (20:13)
[2024-10-23] MEDS: predniSONE 20 MG TABLET 60 MG PO (20:14)
[2024-10-23] MEDS: Famotidine 20 MG TABLET PO (20:14)
--- NOTE | 2024-10-23 20:49 | PC.NURSE ---
Pt states that hand and throat swelling has gone down. Denies any trouble breathing.
[2024-10-23 22:04] VITALS: BP 125/61; PULSE 89; RESP 18; TEMP 36.6; O2SAT 97
[2024-10-23 22:19] VITALS: BP 125/61; PULSE 89; RESP 18; TEMP 36.6; O2SAT 97
== END 2024-10-23 22:20 | disposition home or self-care (01) ==
PROVIDERS: Emergency Provider Emergency Medicine; PCP Nurse Practitioner Family
DX: T78.40XA Allergy, unspecified, initial encounter (principal); R21 Rash and other nonspecific skin eruption; X58.XXXA Exposure to other specified factors, initial encounter
CPT/HCPCS: 99282; 99283

== ENCOUNTER 2024-11-11 07:07 | Outpatient (AMB) | payer OTHER, SELFPAY ==
--- NOTE | 2024-11-11 07:26 | A.OFFVIS_ITS ---
Intake Visit Reasons: ED f/up Allergies No Known Allergies Allergy (Verified 11/11/24 07:27) Medication List - Last Reconciled 11/11/24 by Ignacio Bravo [facility]- betamethasone dipropionate 0.05% 1 appl topical DAILY PRN blood sugar diagnostic (FreeStyle Lite Strips) Test blood sugar once a day blood-glucose meter (FreeStyle Lite Meter kit) As directed cetirizine (Allergy Relief (cetirizine)) 10 mg PO DAILY PRN diphenhydramine HCl (Benadryl) 25 mg PO BEDTIME PRN epinephrine (EpiPen) 0.3 mg (0.3 mL) IM Q10M PRN famotidine (Pepcid) 20 mg PO BID hydrochlorothiazide 25 mg PO DAILY ibuprofen 800 mg PO Q8H PRN 30 days lancets (FreeStyle Lancets) Test blood sugar once a day lidocaine 4% (AsperFlex (lidocaine)) 1 patch topical DAILY PRN 30 days losartan 25 mg PO DAILY prednisone 20 mg PO BID pyridoxine (vitamin B6) 100 mg PO DAILY 90 days HPI HPI ED f/up: Details: History of Present Illness The patient is a 24-year-old female presenting with an evaluation for recent allergic reaction and ongoing palpitations. Approximately three weeks ago, on 10/23, the patient experienced an allergic reaction characterized by lip swelling, hand swelling, itching, and a rash on her extremities and torso. The patient suspects a correlation between the reaction and exposure to children's diapers after they were accidentally put in the washing machine and exploded. She has identified herself as allergic to the material inside the diaper. The patient received emergency treatment with Benadryl and Pepcid, which had a good effect. She currently manages potential reactions at home with Benadryl and famotidine and possesses an EpiPen for emergencies. The patient also reports ongoing palpitations and intermittent chest discomfort, which are not frequent. Chest discomfort does not radiate, further describing zings . These symptoms were more pronounced while she was on a course of prednisone (also given for allergic reaction). To investigate the nature of these palpitations, I plan to arrange a Holter monitor test. The patient denies any accompanying symptoms such as shortness of breath, dizziness, or headaches. Review of Systems - Cardiovascular: Reports palpitations; Denies ongoing chest pain, shortness of breath. - Neurological: Denies dizziness, headache. Plan - Recommend continuing the use of Benadryl and famotidine for managing allergic reactions. The patient has an EpiPen for emergencies and is advised to carry it at all times. - A Holter monitor will be arranged to assess the palpitations and rule out any abnormal cardiac arrhythmias. Patient was informed and verbally consented to the use of an ambient scribe for clinic note documentation during this visit. Discussion Notes I discussed with the patient the potential relationship between her symptoms and the exposure to the diaper materials, leading to the allergic reaction. I emphasized the importance of keeping an EpiPen, Benadryl, and famotidine accessible at all times, especially in places of frequent activity like her workplace or purse. Regarding her palpitations, I highlighted that these could be stress-related, particularly as they were more noticeable while she was on prednisone. The planned Holter monitor study will help us rule out any serious cardiac arrhythmias, providing reassurance, or guiding further investigation as needed. Consent was provided for the Holter monitor placement. I advised the patient to seek immediate medical attention if she experiences severe symptoms or uses the EpiPen. Patient Instructions - Continue to have Benadryl and famotidine readily available for any allergic symptoms. - Always carry the EpiPen in the event of a severe allergic reaction. - Await further instructions regarding the Holter monitor test to evaluate for palpitations. - Seek immediate medical attention if severe symptoms recur or worsen, particularly if the EpiPen is used. [facility] Medical History Generalized headaches Gestational diabetes mellitus Spotting affecting in first trimester High risk due to history of previous obstetrical problem Scoliosis Renal calculi Prediabetes Surgical History History of oophorectomy, unilateral No pertinent past surgical history Family History Father No problems noted. Mother No problems noted. Paternal Grandmother Breast cancer Social History Housing: Apartment Alcohol intake: never Patient Tobacco Use Status: Never used Tobacco e-Cigarette/Vaping Use: Never Used Second Hand Smoke Exposure: No service: No Current occupational status: employed Current occupation: [employer] Current occupational exposures/hazards: No Cognitive needs: No Hearing needs: No Vision needs: No Telehealth Telehealth Telehealth Platform: [employer] Location of provider rendering services: practice address Location of patient: address on file Patient Identification confirmed using: Name, : Yes Telehealth method: video Patient verbally consented to treatment: Yes Patient verbally consented to billing insurance company: Yes Patient informed of any privacy concerns related to visit: Yes Minutes spent on Phone/Video with Pt.: 12 Assessment & Plan Assessment & Plan (1) Allergic reaction: Code(s): T78.40XA - Allergy, unspecified, initial encounter Category: Medical (2) Palpitations: Code(s): R00.2 - Palpitations Category: Medical Plan . Orders: Orders ECG 3 day holter monitor Today R00.2 - Palpitations Coding Level of Care Code Tele Est Pt Level 3 (97839) Diagnoses Allergic reaction T78.40XA Palpitations R00.2
== END 2024-11-11 09:04 | disposition home or self-care (01) ==
LOC: HO.HMCC 07:07
PROVIDERS: PCP Nurse Practitioner Family; Visit Provider Nurse Practitioner Family
DX: T78.40XA Allergy, unspecified, initial encounter (principal); R00.2 Palpitations

== ENCOUNTER → 2024-11-16 12:27 | Outpatient (BNVA) | payer OTHER, SELFPAY | PROVIDERS: PCP Nurse Practitioner Family ==

== ENCOUNTER 2024-11-27 11:26 | Outpatient (REF) | payer OTHER, SELFPAY ==
--- OUTSIDE RECORDS SUMMARY | 2024-11-27 13:19 | XMS_ITS | Clinical Summary ---
Author Organization [facility] Facility Address [address] [place] [id number] Care Team Providers Care Pressure Vessel Inspector Name Role Phone Unavailable Primary Care Provider Unavailabl e Social History Tobacco Use Types Packs/Day Years Used Date Smoking Tobacco: Never Assessed Comments Unknown Sex and Gender Information Value Date Recorded Sex Assigned at Not on file Legal Sex Female 2:24 PM EDT Gender Identity Not on file Sexual Orientation Not on file Plan of Treatment Health Maintenance Due Date Last Done Comments Hepatitis B Vaccine (1 of 3 - 19+ 3-dose series) 2017 Diabetes: Hemoglobin A1C 03/28/2022 Diabetes: Ophthalmology Exam 03/28/2022 Diabetes: Pedal Pulse Checked 03/28/2022 Diabetes: Sensory Foot Exam 03/28/2022 Diabetes: Visual Foot Exam 03/28/2022 Influenza Vaccine (#1) 2024 Pneumococcal Vaccine: Pediat rics (0 to 5 Years) and At-Risk Patients (6 to 64 Years) Aged Out No longer eligible b ased on patient's age to complete this topic Insurance [employer]
--- OUTSIDE RECORDS SUMMARY | 2024-11-27 13:19 | XMS_ITS | Clinical Summary ---
Author Organization [facility] [employer] [facility] ity Address [address] [place] [address] Care Team Providers Care Program Director Name Role Phone Unavailable Primary Care Provider Unavailabl e Social History Tobacco Use Types Packs/Day Years Used Date Smoking Tobacco: Never Assessed Sex and Gender Information Value Date Recorded Sex Assigned at Not on file Gender Identity Not on file Sexual Orientation Not on file Plan of Treatment Health Maintenance Due Date Last Done Comments HPV Vaccines (1 - 3-dose series) 2013 DTaP,Tdap,and Td Vaccines (1 - Tdap) 2017 Hepatitis B Vaccines (1 of 3 - 19+ 3-dose series) 2017 Cervical Cancer Screening: P ap Smear 2019 Depression Screening 09/24/2022 HIV Screening 09/24/2022 Hepatitis C Screening 09/24/2022 Social Influencers of Health Screening 09/24/2022 COVID-19 Vaccine (2023-2 5 season) 2024 Influenza Vaccine (#1) 2024 HIB Vaccines Aged Out No longer eligi ble based on patient's age to complete this topic Hepatitis A Vaccines Aged Out No long er eligible based on patient's age to complete this topic IPV Vaccines Aged Out No longer eligi ble based on patient's age to complete this topic MMR Vaccines Aged Out No longer eligi ble based on patient's age to complete this topic Meningococcal ACWY Vaccine Aged Out N o longer eligible based on patient's age to complete this topic Pneumococcal Vaccine: Pediat rics (0 to 5 Years) and At-Risk Patients (6 to 64 Years) Aged Out No longer eligible b ased on patient's age to complete this topic RSV Immunization Patients Un arlyn 20 months Aged Out No longer eligible b ased on patient's age to complete this topic Varicella Vaccines Aged Out No longer eligible based on patient's age to complete this topic
--- OUTSIDE RECORDS SUMMARY | 2024-11-27 13:19 | XMS_ITS | Clinical Summary ---
Author Organization [employer] Address [address] [place] [address] Care Team Providers Care Rolled Seat Trimmer Name Role Phone Unavailable Primary Care Provider Unavailabl e Allergies No known active allergies Medications ibuprofen 600 MG tabletIndications :Symptomatic irreversible pulpitis Take 1 tablet (600 mg) by mouth every 6 (six) hours if needed for mild pain for up to 30 doses. 30 tablet 3 Active Sodium Fluoride (Sodium Fluoride 5000 Plus) 1.1 % creamIndications: Dental caries [place] teeth for 2 minutes, morning and night. Spit, do not rinse. Do not eat or drink anything for 30 minutes following brushing. 51 g 11 3 Active Social History Tobacco Use Types Packs/Day Years Used Date Smoking Tobacco: Never Smokeless Tobacco: Never Tobacco Cessation:Counseling Given: Not Answered Alcohol Use Standard Drinks/Week Comments Never 0 (1 standard drink = 0.6 oz pur e alcohol) Comments Unknown Sex and Gender Information Value Date Recorded Sex Assigned at Female 08/22/2022 10:24 AM EDT Legal Sex Female 10:24 AM EDT Gender Identity Female 08/22/2022 10:24 AM EDT Sexual Orientation Straight 08/22/2022 10 :24 AM EDT Last Filed Vital Signs Vital Sign Reading Time Taken Comments Blood Pressure 124/88 04/26/2023 8:07 AM EDT Pulse 104 03/08/2023 8:04 AM EDT Temperature - - Respiratory Rate - - Oxygen Saturation - - Inhaled Oxygen Concentration - - Weight - - Height - - Body Mass Index - - Plan of Treatment Health Maintenance Due Date Last Done Comments Depression Screening 1998 HIV Screening 1998 Lipid Panel 1998 SDOH Screening 1998 Alcohol/Substance Use Screening 2010 Family Planning (PISQ) 2013 HPV Vaccines (1 - 3-dose series) 2013 Hepatitis C Screening 2016 Hepatitis B Vaccines (1 of 3 - 19+ 3-dose series) 2017 Pap Smear 2019 Dental Oral Exam 10/04/2023 04/03/2023 Dental Prophylaxis 10/04/2023 04/03/2023 Dental X-Ray: Bitewings 04/04/2024 04/03/2023, 02/23 Tobacco Screening 04/26/2024 04/26/2023 COVID-19 Vaccine ( season) 2024 07/30/2021, 07/09/2021 Influenza Vaccine (#1) 2024 , 09/23/2016, 09/23/2016, Additional history exists Dental X-Ray: Full Mouth 04/04/2026 04/03/2023 DTaP/Tdap/Td Vaccines (2 - Td or Tdap) 07/20/2031 07/20/2021 Zoster Vaccines (1 of 2) 2048 RSV Patients and Patients Aged 60 years or older (1 - 1-dose 75+ series) 2073 Meningococcal Vaccine Completed 09/23/2016, 016 HIB Vaccines Aged Out No longer eligi ble based on patient's age to complete this topic Hepatitis A Vaccines Aged Out No long er eligible based on patient's age to complete this topic IPV Vaccines Aged Out No longer eligi ble based on patient's age to complete this topic Pneumococcal Vaccine: Pediatrics (0 to 5 Years) and At-Risk Patients (6 to 49) Years) Aged Out No longer eligible based on patient's age to complete this topic RSV under 20 months Aged Out No longe r eligible based on patient's age to complete this topic Rotavirus Vaccines Aged Out No longer eligible based on patient's age to complete this topic Procedures Procedure Name Priority Date/Time Associated Diagnosis Comments PROPHYLAXIS - ADULT Routine 04/03/2023 1 :00 PM EDT Dental caries DIAGNOSTIC - DIAGNOSTIC IMAGING - INTRAORAL - COMPREHENSIVE SERIES OF RADIOGRAPHIC IMAGES Routine 04/03/2023 1:00 PM EDT Dental caries COMPREHENSIVE ORAL EVALUATION - NEW OR ESTABLISHED PATIENT Routine 04/03/2023 1:00 PM EDT Dental caries from Last 3 Months or Most Recently Relevant to Health Maintenance Insurance DENTAL - HSN PARTIAL (MEDICAID)
[2024-11-27 14:06] LABS: Influenza A PCR POSITIVE (Negative); Influenza B PCR NEGATIVE (Negative); Resp Syncy Virus RNA Qual PCR NEGATIVE (Negative); SARS COV2 PCR INHOUSE NEGATIVE (Negative)
== END 2024-11-27 11:27 | disposition home or self-care (01) ==
LOC: HO.LAB 11:26
PROVIDERS: Visit Provider Physician Assistant
DX: R09.89 Other specified symptoms and signs involving the circulatory and respiratory systems (principal)
CPT/HCPCS: 0241U

== ENCOUNTER 2024-12-05 09:55 | Outpatient (AMB) | payer OTHER, SELFPAY ==
--- NOTE | 2024-12-05 10:09 | MHC.OFFWIV ---
Intake Vital Signs 12/05/24 10:10 Weight 214 lb BP 120/80 Blood Pressure Location Rt brachial Position Sitting Pulse 107 H Pulse Source Pulse Oximeter Temp 98.3 F Temp Source Oral Pulse Oximetry (%) 98 Oxygen Delivery Method Room Air Intake Visit Reasons: EP sore throat, fever, loss of voice Intake Note: Patient here for fever, sore throat and loss of voice. she did test positive for flu on 11/29 Patient Tobacco Use Status: Never used Tobacco Allergies No Known Allergies Allergy (Verified 12/05/24 10:10) Do you need a note to return to daycare/school/sports/work: Yes HPI HPI Comments History of Present Illness Details 24 y/o female patient who presents to the walk in clinic with c/o URI symptoms. Pt was seen here 11/27 and diagnosed with Influenza A. Pt was unable to tow picker the Anti-viral medication prescribed due to the cost. [facility] Medical History (Updated 12/05/24 @ 10:31 by Esme Seaman NP) Enlarged tonsils Influenza A Generalized headaches Gestational diabetes mellitus Spotting affecting in first trimester High risk due to history of previous obstetrical problem Scoliosis Renal calculi Prediabetes Surgical History History of oophorectomy, unilateral No pertinent past surgical history Family History Father No problems noted. Mother No problems noted. Paternal Grandmother Breast cancer Social History Housing: Apartment Alcohol intake: never Patient Tobacco Use Status: Never used Tobacco e-Cigarette/Vaping Use: Never Used Second Hand Smoke Exposure: No service: No Current occupational status: employed Current occupation: [employer] Current occupational exposures/hazards: No Cognitive needs: No Hearing needs: No Vision needs: No Review of Systems Const All systems reviewed & are unremarkable except as noted in HPI and below Physical Exam Vital Signs: Last Vital Signs Temp 98.3 F 12/05/24 10:10 Pulse 107 H 12/05/24 10:10 BP 120/80 12/05/24 10:10 Pulse Ox 98 12/05/24 10:10 Oxygen Delivery Method Room Air 12/05/24 10:10 Const General: cooperative and no acute distress; No comfortable Nutritional Appearance: obese Orientation/consciousness: patient oriented x3 HEENT Head: Yes normocephalic Ears: external ears normal and TM abnormal bulging bilateral and with fluid behind the TM bilateral General nose exam: Nasal discharge present Face and sinus: Yes sinuses nontender Mouth: moist mucous membranes Throat: Yes abnormal tonsil (+2 enlarged tonsils) Resp Effort & Inspection: normal respiratory effort and able to speak in complete sentences Auscultation: clear to auscultation bilaterally, no crackles, no rales, no rhonchi and no wheezes Cardio Heart sounds: S1 normal heart sound present and S2 normal heart sound present Neuro General: patient oriented x3 Assessment & Plan Assessment & Plan (1) Influenza A: Code(s): J10.1 - Influenza due to other identified influenza virus with other respiratory manifestations Plan: Acetaminophen for fever relief Rest and hydrate well with warm fluids Small Dose Prednisone due to enlarged Tonsils Medications: New prednisone 40 mg (2 x 20 mg) PO DAILY 5 days 10 tabs 0RF J10.1 - Influenza due to other identified influenza virus with other respiratory manifestations, J35.1 - Hypertrophy of tonsils Discontinued oseltamivir (Tamiflu) Discontinued Reason: Insurance Denied 75 mg PO Q12H 5 days 10 caps 0RF Coding Level of Care Code Est Pt Level 4 (59386) Diagnoses Influenza A J10.1 Time Spent (min) 20
[2024-12-05 10:10] VITALS: BP 120/80; PULSE 107; TEMP 36.8; O2SAT 98
--- OUTSIDE RECORDS SUMMARY | 2024-12-05 10:32 | XMS_ITS | Clinical Summary ---
Author Organization [employer] Address [address] [place] [address] Care Team Providers Care Solutions Development Analyst Name Role Phone Unavailable Primary Care Provider Unavailabl e Allergies No known active allergies Medications ibuprofen 600 MG tabletIndications :Symptomatic irreversible pulpitis Take 1 tablet (600 mg) by mouth every 6 (six) hours if needed for mild pain for up to 30 doses. 30 tablet 3 Active Sodium Fluoride (Sodium Fluoride 5000 Plus) 1.1 % creamIndications: Dental caries [place] teeth for 2 minutes, morning and night. [...] 04/03/2023 1 :00 PM EDT Dental caries INTRAORAL - COMPLETE SERIES OF RADIOGRAPHIC IMAGES Routine 04/03/2023 1:00 PM EDT Dental caries COMPREHENSIVE ORAL EVALUATION - NEW OR ESTABLISHED PATIENT Routine 04/03/2023 1:00 PM EDT Dental caries from Last 3 Months or Most Recently Relevant to Health Maintenance Insurance DENTAL - HSN PARTIAL (MEDICAID)
--- OUTSIDE RECORDS SUMMARY | 2024-12-05 10:33 | XMS_ITS | Clinical Summary ---
Author Organization [facility] Address [address] [place] [address] Care Team Providers Care Stamp Redemption Clerk Name Role Phone Unavailable Primary Care Provider Unavailabl e Social History Tobacco Use Types Packs/Day Years Used Date Smoking Tobacco: Never Assessed Comments Unknown Sex and Gender Information Value Date Recorded Sex Assigned at Not on file Legal Sex Female 8:16 PM EST Gender Identity Not on file Sexual Orientation [...] patient's age to complete this topic Meningococcal B Vacine Aged Out No lo nger eligible based on patient's age to complete [...]
--- OUTSIDE RECORDS SUMMARY | 2024-12-05 10:33 | XMS_ITS | Clinical Summary ---
Author Organization [facility] Facility Address [address] [place] [address] Care Team Providers Care Associate Account Executive Name Role Phone Unavailable Primary Care Provider [...]
== END 2024-12-05 10:43 | disposition home or self-care (01) ==
PROVIDERS: PCP Nurse Practitioner Family; Visit Provider Nurse Practitioner Family
DX: J10.1 Influenza due to other identified influenza virus with other respiratory manifestations (principal)

== ENCOUNTER 2024-12-07 09:55 | Outpatient (AMB) | payer OTHER, SELFPAY ==
[2024-12-07 10:44] VITALS: BP 100/60; PULSE 102; RESP 18; TEMP 36.5; O2SAT 98; BMI 41.2
--- NOTE | 2024-12-07 10:44 | MHC.OFFWIV ---
Intake Vital Signs 12/07/24 10:44 Height 4 ft 11 in Weight 204 lb BMI 41.2 BP 100/60 Blood Pressure Location Lt brachial Position Sitting Respiration 18 Pulse 102 H Pulse Source Pulse Oximeter Temp 97.7 F Temp Source Oral Pulse Oximetry (%) 98 Oxygen Delivery Method Room Air Intake Visit Reasons: EP severe cough, headache, flu + 11/27 Intake Note: Pt is here today c/o severe cough, headache: was seen at the walkin x2 days ago Patient Tobacco Use Status: Never used Tobacco Allergies No Known Allergies Allergy (Verified 12/07/24 10:46) HPI EP severe cough, headache, flu + 11/27 HPI Details Ongoing severe cough, headache and dyspnea. Was diagnosed with influenza about 10 days ago. More recently was seen in the ED 2 days ago and given prednisone [facility] Medical History (Updated 12/07/24 @ 11:47 by Negrito Erickson MD) Enlarged tonsils Influenza A Generalized headaches Gestational diabetes mellitus Spotting affecting in first trimester High risk due to history of previous obstetrical problem Scoliosis Renal calculi Prediabetes Surgical History History of oophorectomy, unilateral No pertinent past surgical history Family History Father No problems noted. Mother No problems noted. Paternal Grandmother Breast cancer Social History Housing: Apartment Alcohol intake: never Patient Tobacco Use Status: Never used Tobacco e-Cigarette/Vaping Use: Never Used Second Hand Smoke Exposure: No service: No Current occupational status: employed Current occupation: [employer] Current occupational exposures/hazards: No Cognitive needs: No Hearing needs: No Vision needs: No Review of Systems Const Denies chills, Denies fatigue, Denies fever(s), Denies headache(s) and Denies weakness ENT Details: Sore throat Denies dizziness and Denies headache(s) Resp Details: Cough and shortness of breath-see HPI Reports cough, Denies wheezing and Denies other ( shortness of breath) Musc Denies numbness and Denies tingling Neuro Denies dizziness, Denies headache(s), Denies numbness, Denies tingling, Denies paresthesias and Denies weakness Psych Denies anxiety and Denies depression Endo Denies fatigue Aller/Immun Denies wheezing Physical Exam Vital Signs: Last Vital Signs Temp 97.7 F 12/07/24 10:44 Pulse 102 H 12/07/24 10:44 Resp 18 12/07/24 10:44 BP 100/60 12/07/24 10:44 Pulse Ox 98 12/07/24 10:44 Oxygen Delivery Method Room Air 12/07/24 10:44 BMI result Body Mass Index 41.2 Const General: no acute distress and well developed Nutritional Appearance: well nourished Orientation/consciousness: patient oriented x3 HEENT Head: Yes normocephalic and Yes atraumatic Eyes General: appearance normal, both eyes and all related structures Pupils: Equal, round and reactive pupils present EOM: EOMs intact bilaterally Resp Other: Clear to auscultation bilaterally except for coarse breath sounds and some bronchial secretions sounds. Effort & Inspection: normal respiratory effort Auscultation: clear to auscultation bilaterally Cardio Rate: regular rate Rhythm: regular rhythm Heart sounds: S1 normal heart sound present, S2 normal heart sound present, no gallops, no murmurs and no rubs Neuro General: patient oriented x3 and gait normal Cranial nerves: Yes Equal, round and reactive pupils present Psych Affect: normal affect Assessment & Plan Assessment & Plan (1) Bronchitis: Code(s): J40 - Bronchitis, not specified as acute or chronic Plan: Ongoing cough With coarse breath sounds and bronchial secretions sounds. She is on prednisone. I advised she continue this. Will also give her a Z-Christopher. Hydrate well and get plenty of rest Warm saltwater gargles for sore throat Ibuprofen for aches pains and fever (2) Influenza A: Code(s): J10.1 - Influenza due to other identified influenza virus with other respiratory manifestations Plan: Tested positive for influenza about 10 days ago. This should continue to resolve Medications: New azithromycin (Zithromax Z-Christopher) take 500 mg today (day 1), then 250 mg for 4 days (days 2-5) PO 5 days 6 tabs 0RF azithromycin (Zithromax Z-Christopher) take 500 mg today (day 1), then 250 mg for 4 days (days 2-5) PO 5 days 6 tabs 0RF Coding Level of Care Code Est Pt Level 3 (24777) Diagnoses Bronchitis J40 Influenza A J10.1
== END 2024-12-07 11:50 | disposition home or self-care (01) ==
PROVIDERS: PCP Nurse Practitioner Family; Visit Provider Family Medicine
DX: J40 Bronchitis, not specified as acute or chronic (principal); J10.1 Influenza due to other identified influenza virus with other respiratory manifestations

== ENCOUNTER → 2024-12-16 12:10 | Outpatient (REF) | payer OTHER, SELFPAY ==
--- OUTSIDE RECORDS SUMMARY | 2024-12-16 13:59 | XMS_ITS | Clinical Summary ---
[facility] Address [address] [place] [address] Care Team Providers Care Truck Technician Name Role Phone Unavailable Primary Care Provider [...]
--- OUTSIDE RECORDS SUMMARY | 2024-12-16 13:59 | XMS_ITS | Clinical Summary ---
Author Organization [employer] Address [address] [place] [address] Care Team Providers Care Bender Machine Name Role Phone Unavailable Primary Care Provider Unavailabl e Allergies No known active allergies Medications ibuprofen 600 MG tabletIndications :Symptomatic irreversible pulpitis Take 1 tablet (600 mg) by mouth every 6 (six) hours if needed for mild pain for up to 30 doses. 30 tablet 3 Active Sodium Fluoride (Sodium Fluoride 5000 Plus) 1.1 % creamIndications: Dental caries [place] teeth for 2 minutes, morning and night. [...]
--- OUTSIDE RECORDS SUMMARY | 2024-12-16 13:59 | XMS_ITS | Clinical Summary ---
Author Organization [facility] Facility Address [address] [place] [id number] Care Team Providers Care Carbider Name Role Phone Unavailable Primary Care Provider [...]
== END ==
LOC: HO.CARD 12:10
PROVIDERS: PCP Nurse Practitioner Family; Visit Provider Nurse Practitioner Family
DX: R00.2 Palpitations (principal)
CPT/HCPCS: 93242

== ENCOUNTER → 2024-12-16 12:12 | Outpatient (BNV) | payer OTHER, SELFPAY | PROVIDERS: PCP Nurse Practitioner Family; Visit Provider Internal Medicine Cardiovascular Disease | DX: R00.0 Tachycardia, unspecified (principal) | CPT/HCPCS: 93227 ==

== ENCOUNTER 2025-02-20 08:10 | Outpatient (AMB) | payer OTHER, SELFPAY ==
--- NOTE | 2025-02-20 08:13 | AM.OFFWIN_ITS ---
Intake Vital Signs 02/20/25 08:14 Weight 210 lb BP 124/80 Blood Pressure Location Lt brachial Position Sitting Pulse 68 Pulse Source Pulse Oximeter Pulse Oximetry (%) 98 Oxygen Delivery Method Room Air Intake Visit Reasons: EP Back pain Intake Note: Patient here for lower back pain. Patient Tobacco Use Status: Never used Tobacco Allergies No Known Allergies Allergy (Verified 02/20/25 08:15) Do you need a note to return to daycare/school/sports/work: No HPI HPI Comments History of Present Illness Details History of Present Illness - The patient is a 24-year-old female pr esenting with acute low back pain - The pain originated approximately a we ek and a half ago following a physical activity involving bending and reaching during laundry. The pain is NOT sharp and shooting, it is more dull. - The pain is severe, impacting the lowe r back and right buttocks but not extending into her legs, exacerbating with motion, especially while driving or in a seated position. - Walking is described as painful, requi ring careful movement due to discomfort. - The patient has sought relief with ibu profen, which only partially alleviates the symptoms. - She reports a perception of swelling i n the affected area. - There is no previous incidence of jacqui lar back issues, and she denies any particular injury that correlates with the onset of pain. 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 Physical Exam General: Cooperative, healthy appearing, comfortable, no acute distress and well developed Orientation: Patient oriented x3 Limitations: back pain affecting gait Head: Normal to inspection Ears: Hearing grossly normal bilaterally Nose: Normal External nose present Face and sinus: Normal facial exam Eyes: Appearance normal, both eyes and all related structures Neck: Normal visual inspection and Yes full ROM Respiratory: Normal respiratory effort and able to speak in complete sentences. Skin: No rashes or lesions noted Back/spine: no TTP cervical, thoracic or lumbar spine. TTP bilateral low back into buttocks. Neuro: Patient oriented x3 Extremities: Normal to inspection [facility] Medical History (Updated 02/20/25 @ 08:35 by Daily Gore PA-C) Enlarged tonsils Influenza A Generalized headaches Gestational diabetes mellitus Spotting affecting in first trimester High risk due to history of previous obstetrical problem Scoliosis Renal calculi Prediabetes Surgical History History of oophorectomy, unilateral No pertinent past surgical history Family History Father No problems noted. Mother No problems noted. Paternal Grandmother Breast cancer Social History Housing: Apartment Alcohol intake: never Patient Tobacco Use Status: Never used Tobacco e-Cigarette/Vaping Use: Never Used Second Hand Smoke Exposure: No service: No Current occupational status: employed Current occupation: [employer] Current occupational exposures/hazards: No Cognitive needs: No Hearing needs: No Vision needs: No Review of Systems Const All systems reviewed & are unremarkable except as noted in HPI and below Physical Exam Vital Signs: Last Vital Signs Pulse 68 02/20/25 08:14 BP 124/80 02/20/25 08:14 Pulse Ox 98 02/20/25 08:14 Oxygen Delivery Method Room Air 02/20/25 08:14 Assessment & Plan Assessment & Plan (1) Lumbar back sprain: Code(s): S33.5XXA - Sprain of ligaments of lumbar spine, initial encounter Qualifiers: Encounter type: initial encounter Qualified Code(s): S33.5XXA - Sprain of ligaments of lumbar spine, initial encounter Plan: For acute low back pain, I have initiated treatment with meloxicam at a dosage of 15 mg once daily to control pain and inflammation effectively, and cyclobenzaprine 5 mg every 8 hours as needed for muscle spasms, emphasizing its sedating potential and advising mainly nighttime use. The treatment strategy includes using ice to alleviate inflammation and recommending adequate rest to support recovery. If there is no symptom resolution within a couple of weeks, physical therapy may be considered for continuous support. Prescriptions were forwarded to the designated pharmacy, and further follow-up may be needed if improvement is not achieved. No indication for an Xray. Patient was informed and verbally consented to the use of an ambient scribe for clinic note documentation during this visit. Medications: New cyclobenzaprine 5 mg PO Q8H PRN 20 tabs 0RF Muscle Spasm meloxicam 15 mg PO DAILY 15 tabs 0RF Discontinued ibuprofen Discontinued Reason: Patient Completed Course 800 mg PO Q8H 30 days PRN 90 tabs 0RF pain Coding Level of Care Code Est Pt Level 3 (90560) Diagnoses Lumbar sprain, initial encounter S33.5XXA Encounter type: initial encounter
[2025-02-20 08:14] VITALS: BP 124/80; PULSE 68; O2SAT 98
--- OUTSIDE RECORDS SUMMARY | 2025-02-20 08:21 | XMS_ITS | Clinical Summary ---
[facility] Address [address] [place] [address] Care Team Providers Care Real Estate Salesperson Name Role Phone Unavailable Primary Care Provider [...] Vaccine (2023-2 5 season) 2024 Influenza Vaccine (Season Ended) 2025 HIB Vaccines Aged Out No longer eligi [...] age to complete this topic Meningococcal B Vaccine Aged Out No l onger eligible based on patient's age to complete [...]
--- OUTSIDE RECORDS SUMMARY | 2025-02-20 08:21 | XMS_ITS | Clinical Summary ---
Author Organization [employer] Address [address] [place] [address] Care Team Providers Care Well Treatment Offsider Name Role Phone Unavailable Primary Care Provider Unavailabl e Allergies No known active allergies Medications ibuprofen 600 MG tabletIndications :Symptomatic irreversible pulpitis Take 1 tablet (600 mg) by mouth every 6 (six) hours if needed for mild pain for up to 30 doses. 30 tablet 3 Active Sodium Fluoride (Sodium Fluoride 5000 Plus) 1.1 % creamIndications: Dental caries [place] teeth for 2 minutes, morning and night. [...]
--- OUTSIDE RECORDS SUMMARY | 2025-02-20 08:21 | XMS_ITS | Clinical Summary ---
Author Organization [facility] Facility Address [address] [place] [address] Care Team Providers Care Security Professional Name Role Phone Unavailable Primary Care Provider [...] Diabetes: Visual Foot Exam 03/28/2022 Influenza Vaccine (Season Ended) 2025 Pneumococcal Vaccine: Peds ( 0 to 5 Years) and At-Risk Patients (6 to 49 Years) Aged Out No longer eligible b ased on patient's age to complete this topic Insurance [employer]
== END 2025-02-20 08:43 | disposition home or self-care (01) ==
PROVIDERS: PCP Nurse Practitioner Family; Visit Provider Physician Assistant
DX: S33.5XXA Sprain of ligaments of lumbar spine, initial encounter (principal)

== ENCOUNTER → 2025-02-20 08:10 | Outpatient (BNVA) | payer OTHER, SELFPAY | PROVIDERS: PCP Nurse Practitioner Family; Visit Provider Physician Assistant | DX: Z13.89 Encounter for screening for other disorder (principal) ==

== ENCOUNTER 2025-02-22 09:06 | Outpatient (AMB) | payer OTHER, SELFPAY ==
--- OUTSIDE RECORDS SUMMARY | 2025-02-22 09:08 | XMS_ITS | Clinical Summary ---
Author Organization [employer] Address [address] [place] [address] Care Team Providers Care Acquisition Lead Name Role Phone Unavailable Primary Care Provider Unavailabl e Allergies No known active allergies Medications ibuprofen 600 MG tabletIndications :Symptomatic irreversible pulpitis Take 1 tablet (600 mg) by mouth every 6 (six) hours if needed for mild pain for up to 30 doses. 30 tablet 3 Active Sodium Fluoride (Sodium Fluoride 5000 Plus) 1.1 % creamIndications: Dental caries [place] teeth for 2 minutes, morning and night. [...] 07/30/2021, 07/09/2021 Influenza Vaccine (#1) 2024 , 10/13/2021, 09/23/2016, Additional history exists Dental X-Ray: Full [...]
--- OUTSIDE RECORDS SUMMARY | 2025-02-22 09:08 | XMS_ITS | Clinical Summary ---
[facility] [address] [place] [address] Care Team Providers Care Marketing Assistant Name Role Phone Unavailable Primary Care Provider [...]
--- OUTSIDE RECORDS SUMMARY | 2025-02-22 09:08 | XMS_ITS | Clinical Summary ---
Author Organization [facility] Facility Address [address] [place] [address] Care Team Providers Care Tooling Manager Name Role Phone Unavailable Primary Care Provider [...]
[2025-02-22 09:41] VITALS: BP 122/76; PULSE 93; O2SAT 99; BMI 42.4
--- NOTE | 2025-02-22 09:41 | MHC.OFFWIV ---
Intake Vital Signs 02/22/25 09:41 Height 4 ft 11 in Weight 210 lb BMI 42.4 BP 122/76 Blood Pressure Location Lt brachial Position Sitting Pulse 93 Pulse Oximetry (%) 99 Oxygen Delivery Method Room Air Intake Visit Reasons: EP UTI/back pain, discharge Patient Tobacco Use Status: Never used Tobacco Allergies No Known Allergies Allergy (Verified 02/22/25 09:41) Do you need a note to return to daycare/school/sports/work: Yes [facility] Medical History (Updated 02/20/25 @ 08:35 by Daily Gore PA-C) Enlarged tonsils Influenza A Generalized headaches Gestational diabetes mellitus Spotting affecting in first trimester High risk due to history of previous obstetrical problem Scoliosis Renal calculi Prediabetes Surgical History History of oophorectomy, unilateral No pertinent past surgical history Family History Father No problems noted. Mother No problems noted. Paternal Grandmother Breast cancer Social History Housing: Apartment Alcohol intake: never Patient Tobacco Use Status: Never used Tobacco e-Cigarette/Vaping Use: Never Used Second Hand Smoke Exposure: No service: No Current occupational status: employed Current occupation: [employer] Current occupational exposures/hazards: No Cognitive needs: No Hearing needs: No Vision needs: No Review of Systems Const All systems reviewed & are unremarkable except as noted in HPI and below Physical Exam Vital Signs: Last Vital Signs Pulse 93 02/22/25 09:41 BP 122/76 02/22/25 09:41 Pulse Ox 99 02/22/25 09:41 Oxygen Delivery Method Room Air 02/22/25 09:41 BMI result Body Mass Index 42.4 Results AMB Urinalysis, Automated UA Leukoctes 0 Mary Carmen/uL Last Edit by Jonnie Hamm CMA on 02/22/25 09:49 UA Nitrite Negative Last Edit by Jonnie Hamm CMA on 02/22/25 09:49 UA Urobilinogen 0.2 mg/dL Last Edit by Jonnie Hamm CMA on 02/22/25 09:49 UA Protein 15 mg/dL Last Edit by Jonnie Hamm CMA on 02/22/25 09:49 UA pH 6.0 Last Edit by Jonnie Hamm CMA on 02/22/25 09:49 UA Blood 25 Neymar/uL Last Edit by Jonnie Hamm, JUDITH on 02/22/25 09:49 UA Specific [place] 1.015 Last Edit by Jonnie Hamm CMA on 02/22/25 09:49 UA Ketone Negative Last Edit by Jonnie Hamm CMA on 02/22/25 09:49 UA Bilirubin 0 mg/dL Last Edit by Jonnie Hamm CMA on 02/22/25 09:49 UA Glucose 0 mg/dL Last Edit by Jonnie Hamm CMA on 02/22/25 09:49 Results Reviewed Results Reviewed: Laboratory Last Values Urine pH (Auto) 6.0 02/22/25 09:46 Specific [place] (Auto) 1.015 02/22/25 09:46 Urine Protein (Auto) 15 mg/dL 02/22/25 09:46 Glucose (UA)(Auto) 0 mg/dL 02/22/25 09:46 Urine Ketones (Auto) Negative 02/22/25 09:46 Urine Blood (Auto) 25 Neymar/uL 02/22/25 09:46 Urine Nitrite (Auto) Negative 02/22/25 09:46 Urine Bilirubin (Auto) 0 mg/dL 02/22/25 09:46 Urine Urobilinogen (Auto) 0.2 mg/dL 02/22/25 09:46 Leukocyte Esterase (Auto) 0 Mary Carmen/uL 02/22/25 09:46 Assessment & Plan Assessment & Plan (1) Muscle spasm: Code(s): M62.838 - Other muscle spasm Orders: Orders AMB Urinalysis Automated Today Z13.9 - Encounter for screening, unspecified Coding Level of Care Code Est Pt Level 4 (54350) Diagnoses Muscle spasm M62.838
== END 2025-02-22 11:21 | disposition home or self-care (01) ==
PROVIDERS: PCP Nurse Practitioner Family; Visit Provider Physician Assistant Medical
DX: Z13.9 Encounter for screening, unspecified (principal)

== ENCOUNTER → 2025-02-22 09:06 | Outpatient (BNVA) | payer OTHER, SELFPAY | PROVIDERS: PCP Nurse Practitioner Family; Visit Provider Physician Assistant Medical | DX: M62.838 Other muscle spasm (principal) | CPT/HCPCS: 81003 ==

== ENCOUNTER 2025-03-12 08:01 | Outpatient (AMB) | payer OTHER, SELFPAY ==
--- NOTE | 2025-03-12 08:06 | MHC.OFFWIV ---
Intake Vital Signs 03/12/25 08:10 Weight 210 lb BP 140/90 H Blood Pressure Location Rt brachial Position Sitting Pulse 108 H Pulse Source Pulse Oximeter Pulse Oximetry (%) 98 Oxygen Delivery Method Room Air Intake Visit Reasons: EP back pain Intake Note: Patient here for back pain that has not improved for over a month. Patient Tobacco Use Status: Never used Tobacco Allergies No Known Allergies Allergy (Verified 03/12/25 08:14) Do you need a note to return to daycare/school/sports/work: Yes HPI HPI Comments History of Present Illness Details History of Present Illness - The patient is a 24-year-old female with acute low back pain and sharp shooting pain radiating to the lower extremities. - Symptoms began approximately one month ago with a previous diagnosis of sciatica. - Significant difficulty with activities of daily living, such as dressing and caring for a young child, due to pain. - Pain is present in both legs, with the right leg experiencing more pronounced symptoms. - Previous interventions included muscle relaxants and Meloxicam, with limited success. - Predisposing and exacerbating factors include physical movements such as bending and driving. - Significant interference with walking, causing discomfort and changes in walking pattern. - The patient has used non-pharmacological measures like specific exercises and postural adjustments for pain relief. - She has tried a muscle relaxer and meloxicam with no relief. Physical Exam General: Cooperative, healthy appearing, comfortable, no acute distress and well developed Orientation: Patient oriented x3 Limitations: Limitations in bending due to back pain Head: Normal to inspection Ears: Hearing grossly normal bilaterally Nose: Normal External nose present Face and sinus: Normal facial exam Eyes: Appearance normal, both eyes and all related structures Neck: Normal visual inspection and Yes full ROM Respiratory: Normal respiratory effort and able to speak in complete sentences. Skin: No rashes or lesions noted Neuro: Patient oriented x3, limping gait Extremities: Normal to inspection, + straight leg test bilaterally PFSH Medical History (Updated 03/12/25 @ 08:25 by Daily Gore PA-C) Enlarged tonsils Influenza A Generalized headaches Gestational diabetes mellitus Spotting affecting in first trimester High risk due to history of previous obstetrical problem Scoliosis Renal calculi Prediabetes Surgical History History of oophorectomy, unilateral No pertinent past surgical history Family History Father No problems noted. Mother No problems noted. Paternal Grandmother Breast cancer Social History Housing: Apartment Alcohol intake: never Patient Tobacco Use Status: Never used Tobacco e-Cigarette/Vaping Use: Never Used Second Hand Smoke Exposure: No service: No Current occupational status: employed Current occupation: [employer] Current occupational exposures/hazards: No Cognitive needs: No Hearing needs: No Vision needs: No Review of Systems Const All systems reviewed & are unremarkable except as noted in HPI and below Physical Exam Vital Signs: Last Vital Signs Pulse 108 H 03/12/25 08:10 BP 140/90 H 03/12/25 08:10 Pulse Ox 98 03/12/25 08:10 Oxygen Delivery Method Room Air 03/12/25 08:10 Assessment & Plan Assessment & Plan (1) Lumbar back sprain: Code(s): S33.5XXA - Sprain of ligaments of lumbar spine, initial encounter Qualifiers: Encounter type: initial encounter Qualified Code(s): S33.5XXA - Sprain of ligaments of lumbar spine, initial encounter Plan: Plan For management of acute low back pain with sciatica, I have prescribed a five-day course of prednisone to diminish inflammation and alleviate pain, emphasizing the avoidance of ibuprofen or Meloxicam concurrent usage. Continuation of muscle relaxants and acetaminophen is endorsed. A diagnostic lumbar x-ray will be pursued to exclude structural anomalies, with results to be communicated. Referral to physical therapy is made for targeted therapeutic exercises. Instructions provided on red flag symptoms necessitating emergency care, along with non-pharmacological measures for symptomatic relief. Advised cautious ambulation to prevent symptom exacerbation. Patient was informed and verbally consented to the use of an ambient scribe for clinic note documentation during this visit. (2) Bilateral low back pain with sciatica: Code(s): M54.40 - Lumbago with sciatica, unspecified side Qualifiers: Chronicity: acute Sciatica laterality: bilateral sciatica Qualified Code(s): M54.42 - Lumbago with sciatica, left side; M54.41 - Lumbago with sciatica, right side Plan: as above Orders: Orders PT Evaluation and Treatment Today M54.40 - Lumbago with sciatica, unspecified side, S33.5XXA - Sprain of ligaments of lumbar spine, initial encounter XR lumbar spine 4V min Today S33.5XXA - Sprain of ligaments of lumbar spine, initial encounter Medications: New prednisone 50 mg PO QAM 5 tabs 0RF Coding Level of Care Code Est Pt Level 4 (84143) Diagnoses Lumbar sprain, initial encounter S33.5XXA Encounter type: initial encounter Acute bilateral low back pain with bilateral sciatica M54.42; M54.41 Chronicity: acute Sciatica laterality: bilateral sciatica
[2025-03-12 08:10] VITALS: BP 140/90; PULSE 108; O2SAT 98
--- OUTSIDE RECORDS SUMMARY | 2025-03-12 09:13 | XMS_ITS | Clinical Summary ---
Author Organization [facility] Address [address] [place] [address] Care Team Providers Care Visitor Service Assistant Name Role Phone Unavailable Primary Care [...]
--- OUTSIDE RECORDS SUMMARY | 2025-03-12 09:13 | XMS_ITS | Clinical Summary ---
Author Organization [employer] Address [address] [place] [address] Care Team Providers Care Central Office Frame Wirer Name Role Phone Unavailable Primary Care Provider Unavailabl e Allergies No known active allergies Medications ibuprofen 600 MG tabletIndications :Symptomatic irreversible pulpitis Take 1 tablet (600 mg) by mouth every 6 (six) hours if needed for mild pain for up to 30 doses. 30 tablet 3 Active Sodium Fluoride (Sodium Fluoride 5000 Plus) 1.1 % creamIndications: Dental caries [place] teeth for 2 minutes, morning and night. [...] 1998 Lipid Panel 1998 SDOH Screening 1998 Disability Screening 1998 Alcohol/Substance Use Screening 2010 Family [...] Maintenance Insurance DENTAL - HSN PARTIAL (MEDICAID) [place] [id number] [place] [id number] [place] [id number] [place] [id number]
--- OUTSIDE RECORDS SUMMARY | 2025-03-12 09:14 | XMS_ITS | Clinical Summary ---
Author Organization [facility] Facility Address [address] [place] [address] Care Team Providers Care Central Stores Attendant Name Role Phone Unavailable Primary Care Provider [...]
== END 2025-03-12 08:38 | disposition home or self-care (01) ==
PROVIDERS: PCP Nurse Practitioner Family; Visit Provider Physician Assistant
DX: S33.5XXA Sprain of ligaments of lumbar spine, initial encounter (principal); M54.42 Lumbago with sciatica, left side; M54.41 Lumbago with sciatica, right side

== ENCOUNTER 2025-03-12 08:01 | Outpatient (REF) | payer OTHER, SELFPAY ==
--- NOTE | ~2025-03-12 | XR_ITS ---
EXAMINATION: XR LUMBAR SPINE 4 OR MORE VIEWS HISTORY: S33.5XXA - Sprain of ligaments of lumbar spine, initial encounter COMPARISON: There are no prior studies for comparison. FINDINGS: AP, lateral, bilateral oblique, and coned down views of the lumbar spine are submitted. Osseous mineralization is normal. Five nonrib-bearing lumbar vertebral bodies are identified, maintaining normal height and alignment without evidence of fracture or spondylolisthesis. There is mild disc space narrowing at L5-S1. The remaining intervertebral disc spaces are maintained. The posterior elements are intact. There is no spondylolysis. The visualized paraspinal soft tissues are unremarkable. XR/XR lumbar spine 4V min IMPRESSION: Mild disc space narrowing at L5-S1. Otherwise unremarkable examination of the lumbar spine. Electronically signed by: Eulalio Ring MD 03/12/2025 09:03 AM EDT
--- OUTSIDE RECORDS SUMMARY | 2025-03-12 09:49 | XMS_ITS | Clinical Summary ---
Author Organization [facility] Address [address] [place] [address] Care Team Providers Care Certified Orthotist Practice Manager Name Role Phone Unavailable Primary Care [...]
--- OUTSIDE RECORDS SUMMARY | 2025-03-12 09:50 | XMS_ITS | Clinical Summary ---
Author Organization [facility] Facility Address [address] [place] [address] Care Team Providers Care Chimney Mechanic Name Role Phone Unavailable Primary Care Provider [...]
== END 2025-03-12 08:02 | disposition home or self-care (01) ==
LOC: HO.HMGCX 08:01
PROVIDERS: PCP Nurse Practitioner Family; Visit Provider Physician Assistant
DX: S33.5XXA Sprain of ligaments of lumbar spine, initial encounter (principal); M54.42 Lumbago with sciatica, left side; M54.41 Lumbago with sciatica, right side
CPT/HCPCS: 72110

== ENCOUNTER → 2025-03-12 08:34 | Outpatient (BNV) | payer OTHER, SELFPAY | PROVIDERS: PCP Nurse Practitioner Family; Visit Provider Radiology Diagnostic Radiology | DX: S33.5XXA Sprain of ligaments of lumbar spine, initial encounter (principal) | CPT/HCPCS: 72110 ==

== ENCOUNTER 2025-03-29 19:22 | Outpatient (REF) | payer OTHER, SELFPAY ==
--- NOTE | ~2025-03-29 | MR_ITS ---
EXAMINATION: MR LUMBAR SPINE WITHOUT CONTRAST CLINICAL INFORMATION: Lumbago with left sided sciatica. COMPARISON: No prior available. Radiographs of the lumbar spine 03/12/2025. TECHNIQUE: Multiplanar multisequence MR imaging of the lumbar spine was done without IV contrast. Examination was performed on a 1.5 Genoveva Siemens magnet, utilizing standard sequences. FINDINGS: CORONAL ALIGNMENT: -There is a minimal right convex scoliosis, possibly positional. SAGITTAL ALIGNMENT: - There is a normal lordosis. -There are no subluxations. LUMBOSACRAL JUNCTION: -Normal. There are 5 vub-nit-bimsllr lumbar-type vertebral bodies. VERTEBRAL BODIES/BONE MARROW: -There are minimal edematous type endplate changes with superimposed fatty type endplate changes at L5-S1. -There is otherwise no abnormal bone marrow signal or edema. No compression deformities. No suspicious infiltrative bone marrow signal abnormalities. -Somewhat diffusely hypointense T1 signal throughout the vertebral body marrow, nonspecific but can be seen associated with smokers, in hematopoietic states, and in marrow replacement disorders. DISCS: -Moderate loss of disc height and signal at L5-S1. See below. -Otherwise, disc spaces above L5 are preserved. SPINAL CANAL: -No abnormal developmental findings. CONUS MEDULLARIS: -Terminates at L1. Morphology and signal is normal. INTRADURAL NERVE ROOTS: - No masses or abnormal clumping identified. Axial Disc Space Images: T12-L1: No central canal or neural foraminal narrowing. Normal facets. L1-L2: No central canal or neural foraminal narrowing. Normal facets. L2-L3: No central canal or neural foraminal narrowing. Normal facets. L3-L4: No central canal or neural foraminal narrowing. Mild hypertrophic degenerative facet changes bilaterally. L4-L5: No central canal narrowing. Mild right greater than left hypertrophic degenerative facet changes present. There is mild right greater than left neural foraminal narrowing. L5-S1: There is a large central, right paracentral, and lateral disc extrusion, measuring approximately 0.8 x 1.3 x 1.1 cm (AP, TRV, CC). This is severely impinging upon the right subarticular recess, likely impinging moderate to severe resultant right neural foraminal stenosis, with probable mild impingement of the exiting right L5 root. There is moderate left neural foraminal stenosis. The traversing right S1 and likely S2 nerve roots, and resulting in moderate to severe central canal stenosis. IMAGED SI JOINTS: -Normal in appearance. PARAVERTEBRAL AND INCLUDED EXTRASPINAL SOFT TISSUES: -No abnormalities identified. MR/MR lumbar spine wo con IMPRESSION: 1. Large central, right paracentral, and lateral disc extrusion at L5-S1, measuring approximately 0.8 x 1.3 x 1.1 cm. This is severely impinging upon the right subarticular recess, with impingement of the traversing right S1 and likely S2 nerve roots. There is moderate to severe central canal stenosis. In addition there is moderate to severe right neural foraminal narrowing, with mild impingement of the exiting right L5 nerve root. Electronically signed by: Obie Walsh MD 03/31/2025 10:43 AM EDT
== END 2025-03-29 19:23 | disposition home or self-care (01) ==
LOC: HO.MRI 19:22
PROVIDERS: PCP Nurse Practitioner Family; Visit Provider Nurse Practitioner Family
DX: M54.42 Lumbago with sciatica, left side (principal); M54.41 Lumbago with sciatica, right side; R93.7 Abnormal findings on diagnostic imaging of other parts of musculoskeletal system
CPT/HCPCS: 72148

== ENCOUNTER → 2025-03-29 19:31 | Outpatient (BNV) | payer OTHER, SELFPAY | PROVIDERS: PCP Nurse Practitioner Family; Visit Provider Radiology Diagnostic Radiology | DX: M51.27 Other intervertebral disc displacement, lumbosacral region (principal); M99.63 Osseous and subluxation stenosis of intervertebral foramina of lumbar region | CPT/HCPCS: 72148 ==

== ENCOUNTER 2025-04-10 08:56 | Outpatient (AMB) | payer OTHER, SELFPAY ==
--- NOTE | 2025-04-10 09:04 | HO.SPINEOV ---
Intake Visit Reasons: spinal stenosis, lumbar region Intake Note: Ms. Calvo is here today c/o bilateral low back pain. Allergies No Known Allergies Allergy (Verified 04/10/25 09:05) Assessment & Plan Assessment & Plan (1) Lumbar radiculopathy: Code(s): M54.16 - Radiculopathy, lumbar region Category: Medical Plan Dear ASHLEY Bravo, Thank you for referring Fatmata to our office today. She is a pleasant 24-year-old female who comes in today for evaluation of low back pain and shooting pain into her right lower extremity. She reports that this has been ongoing for the past 1.5 months. She identifies an inciting incident of moving boxes filled with paper while at work. She states the day after she woke up and started having shooting pains down her right lower extremity. She does identify some numbness on her right dorsal foot which accompanies the pain. Thankfully, she states that overall her pain has been slowly improving over the course of the last month or so. It is now to the point where it is fairly tolerable, utilizing only depd-obe-vkzirrg ibuprofen and occasional breaks to sit down and rest. She states that she recently was sent for a course of physical therapy, however she has a young daughter at home making it very difficult for her to attend. She has not attempted cortisone injections, has not been treated by a chiropractor, and has never attempted acupuncture as of yet. She denies any perineal numbness, or bowel / bladder incontinence. PMH: Hyperlipidemia, high blood pressure, seasonal allergies. Social hx: The patient does not smoke, reports no substance use. Medications: See ViViFi list. Allergies: NKDA. Physical exam: The patient has 5/5 strength in her upper and lower extremities. She ambulates well with a very slightly antalgic gait favoring the left side versus right. She has hypoesthesia over her dorsal right foot when compared to the left. She has no other sensational deficits to light touch on examination. Her reflexes are 2+ intact. She has no clonus. (+) Right sided straight leg raise. (-) Orr's. Imaging review: MRI of the lumbar spine completed here at [facility] shows a right sided paracentric disc herniation at L5-S1 causing moderate central canal stenosis and severe right sided foraminal stenosis at this level. There is also what I would call moderate left sided foraminal stenosis. Impression: Fatmata is a pleasant 24-year-old female comes in today for evaluation of 1.5 months of low back pain and shooting pains into her right lower extremity. She states that the pain initially was essentially intolerable, causing her to seek treatment at urgent care 4 different times after the initial inciting incident. Thankfully, it sounds like she has been improving quite a bit since her initial injury. She is now to the point where she can mitigate her symptoms fairly well with ibuprofen monotherapy. She very rarely throughout the day we will get shooting pains down her right lower extremity, and states her symptoms overall have very much so improved. I think she would be best served by completing a course of physical therapy, and adjusting her daily schedule in such a way that she can make these appointments. Most disc herniations will resorb on their own in younger patients. If she does begin experiencing worsening leg pain, or numbness she would come back to see us for subsequent evaluation. Thank you for allowing us to care for your patient. The total time spent with this visit with this patient was 45 minutes reviewing history, physical exam, MRI imaging review, and implementation of treatment plan or further diagnostic testing Shyam Jurado MD,PhD [facility] Coding Level of Care Code New Pt Level 4 (31518) Diagnoses Lumbar radiculopathy M54.16
--- OUTSIDE RECORDS SUMMARY | 2025-04-10 09:30 | XMS_ITS | Clinical Summary ---
Author Organization [employer] Address [address] [place] [address] Care Team Providers Care General Handling Supervisor Name Role Phone Unavailable Primary Care Provider Unavailabl e Allergies No known active allergies Medications ibuprofen 600 MG tabletIndications :Symptomatic irreversible pulpitis Take 1 tablet (600 mg) by mouth every 6 (six) hours if needed for mild pain for up to 30 doses. 30 tablet 3 Active Sodium Fluoride (Sodium Fluoride 5000 Plus) 1.1 % creamIndications: Dental caries [place] teeth for 2 minutes, morning and night. [...] ( season) 2024 07/30/2021, 07/09/2021 Influenza Vaccine (Season Ended) 2025 10/13/2021, 10/13/2021, 09/23/2016, Additional history exists Dental X-Ray: [...] Years) and At-Risk Patients (6 to 49) Years Aged Out No longer eligible based on [...] DENTAL - HSN PARTIAL (MEDICAID) [place] [address] [place] [address] [place] [address] [place] [id number]
== END 2025-04-10 10:45 | disposition home or self-care (01) ==
LOC: HO.HNS 08:57
PROVIDERS: PCP Nurse Practitioner Family; Referring Provider Nurse Practitioner Family; Visit Provider Physician Assistant
DX: M54.16 Radiculopathy, lumbar region (principal)
CPT/HCPCS: 99204

== ENCOUNTER 2025-04-14 15:19 | Outpatient (AMB) | payer OTHER, SELFPAY ==
[2025-04-14 15:23] VITALS: BP 122/74; PULSE 104; RESP 16; TEMP 37.3; O2SAT 99; BMI 43.8
--- NOTE | 2025-04-14 15:23 | A.OFFPC_ITS ---
Vital Signs 04/14/25 15:23 04/14/25 16:12 Height 4 ft 11 in Weight 217 lb BMI 43.8 BP 122/74 Blood Pressure Location Lt brachial Position Sitting Respiration 16 Pulse 104 H 94 Pulse Source Pulse Oximeter Temp 99.1 F Temp Source Oral Pulse Oximetry (%) 99 Oxygen Delivery Method Room Air Intake Visit Reasons: 6 months f/up Intake Note: Pt is here today for her 6mo. f/u Allergies No Known Allergies Allergy (Verified 04/14/25 16:15) Medication List - Last Reconciled 04/14/25 by DEONTE Toure- atorvastatin 10 mg PO BEDTIME blood sugar diagnostic (FreeStyle Lite Strips) Test blood sugar once a day blood-glucose meter (FreeStyle Lite Meter kit) As directed cetirizine 10 mg PO DAILY PRN epinephrine (EpiPen) 0.3 mg (0.3 mL) IM Q10M PRN hydrochlorothiazide 25 mg PO DAILY ibuprofen 600 mg PO Q6H PRN ketoconazole 2% 1 appl topical BID lancets (FreeStyle Lancets) Test blood sugar once a day losartan 25 mg PO DAILY Tobacco use date assessed: 04/14/25 Dental Screening Dental Screen Date: 04/14/25 Did you have a dental visit in the last 12 months?: Yes Did you have a dental problem in the last 6 months where you did not have access to dental care?: Yes Was dental information given to patient?: Patient has dentist HPI 6 months f/up HPI Details Chief Complaint The patient presents for follow-up on diabetes and management of sciatica pain. History of Present Illness The patient is a 24-year-old female presenting with a follow-up for diabetes management and sciatica. She denies any neuropathy but reports shooting pain down her right lower extremity, attributed to sciatica from her lower back. She is currently under the care of a back specialist and plans to attend physical therapy at [facility] in [place]. Her blood glucose levels have been consistently under 150 mg/dL, and she denies any symptoms of hypoglycemia. She is currently on a statin and has been more attentive to her diet. Additionally, she has a tinea infection on her right upper flank, for which ketoconazole has been prescribed. Social History - Exercise: Plans to attend physical the rapy for sciatica management - Diet: Watching her diet more closely Health Maintenance - Blood glucose monitoring: Patient repo rts levels consistently under 150 mg/dL Review of Systems - Neurological: Denies neuropathy, repor ts shooting pain down right lower extremity - Endocrine: Denies symptoms of hypoglyc emia Physical Exam General: Cooperative, healthy appearing, comfortable, no acute distress and well developed, morbidly obese Orientation: Patient oriented x3 Limitations: No limitations Head: Normal to inspection Ears: Hearing grossly normal bilaterally Nose: Normal external nose present Face and sinus: Normal facial exam Eyes: Appearance normal, both eyes and all related structures Neck: Normal visual inspection and Yes full ROM Respiratory: Normal respiratory effort and able to speak in complete sentences. Clear to auscultation bilaterally Cardiovascular: Regular rate and rhythm. Normal S1 and S2 GI: Normal to inspection. Soft to palpation and nontender Skin: right flank region, small area of macular erythema (tinea) Neuro: Patient oriented x3 Extremities: Normal to inspection, except for shooting pain down her right lower extremity related to sciatica from her lower back Results Plan The patient will continue monitoring her blood glucose levels, aiming to maintain them under 150 mg/dL. She will proceed with physical therapy at [facility] in [place] for her sciatica management. Ketoconazole has been prescribed for the tinea infection on her right flank. Patient Instructions - Continue monitoring blood glucose [facility]. - Attend physical therapy sessions as sc heduled. - Apply ketoconazole as prescribed for t he tinea infection. -labs needed in the near future [facility] Medical History Enlarged tonsils Influenza A Generalized headaches Gestational diabetes mellitus Spotting affecting in first trimester High risk due to history of previous obstetrical problem Scoliosis Renal calculi Prediabetes Surgical History History of oophorectomy, unilateral No pertinent past surgical history Family History Father No problems noted. Mother No problems noted. Paternal Grandmother Breast cancer Social History Housing: Apartment Alcohol intake: never Patient Tobacco Use Status: Never used Tobacco e-Cigarette/Vaping Use: Never Used Second Hand Smoke Exposure: No service: No Current occupational status: employed Current occupation: [employer] [place] Current occupational exposures/hazards: No Cognitive needs: No Hearing needs: No Vision needs: No Questionnaire PHQ-9 Over the last 2 weeks, how often have you been bothered by any of the following problems? 1. Little interest or pleasure in doing things: nearly every day 2. Feeling down, depressed, or hopeless: not at all 3. Trouble falling or staying asleep, or sleeping too much: not at all 4. Feeling tired or having little energy: not at all 5. Poor appetite or overeating: not at all 6. Feeling bad about yourself - or that you are a failure or have let yourself or your family down: not at all 7. Trouble concentrating on things, such as reading the newspaper or watching television: not at all 8. Moving or speaking so slowly that other people could have noticed. Or the opposite - being so fidgety or restless that you have been moving around a lot more than usual: not at all 9. Thoughts that you would be better off or of hurting yourself in some way: not at all Total score: 3 Depression Screening Interpretation: Negative Depression Screening Done: Yes 30808 - PHQ-9 Billing: Yes Source: Developed by Drs. Eulalio Nicole, Khalida Martinez, Marshall Mcqueen and colleagues, with an educational natalee from [employer]. Thrive Questionnaire Date Thrive assessed: 07/18/24 I am a: Patient What is your living situation today?: I have a steady place to live Within the past 12 months, did the food you bought not last and you didn't have the money to get more?: Never true Within the past 12 months, did you worry whether your food would run out before you got money to buy more?: Never true Do you have trouble paying for medicines?: No Do you have trouble getting transportation to medical appointments?: No Do you have trouble paying your heating and electricity bill?: No Do you have trouble taking care of your child, family member or friend?: No Do you have trouble with day-to-day activities such as bathing, preparing meals, shopping, managing finances, etc.?: No Are you currently unemployed and looking for a job?: No Are you interested in more education?: No Please select the resources that you would like help with: None Currently or been in a relationship where the following occur: No concerns reported THRIVE Score: 0 AUDIT C Alcohol Use Questionnaire (AUDIT-C) 1. How often do you have a drink containing alcohol?: Never Total Score: 0 BRANDON-7 AMB Questionnaire BRANDON-7 Date BRANDON - 7 assessed: 07/18/24 Feeling nervous, anxious, or on edge: 0 = Not at all Not being able to stop or control worryin = Not at all Worrying too much about different things: 0 = Not at all Trouble relaxin = Not at all Being so restless that it is hard to sit still: 0 = Not at all Becoming easily annoyed or irritable: 0 = Not at all Feeling afraid as if something awful might happen: 0 = Not at all Total BRANDON-7 score (0-4 normal; 5-9 mild; 10-14 moderate; 15-21 severe): 0 Source: Developed by Drs. Eulalio Nicole, Khalida Martinez, Marshall Mcqueen and colleagues, with an educational natalee from [employer]. Physical exam (Primary Care) Vital Signs: Last Vital Signs Temp 99.1 F 04/14/25 15:23 Pulse 104 H 04/14/25 15:23 Resp 16 04/14/25 15:23 BP 122/74 04/14/25 15:23 Pulse Ox 99 04/14/25 15:23 Oxygen Delivery Method Room Air 04/14/25 15:23 BMI result Body Mass Index 43.8 Tobacco/Smoking Status: Tobacco use Status Tobacco use date assessed 04/14/25 04/14/25 15:24 Patient Tobacco Use Status Never used Tobacco 04/14/25 15:24 e-Cigarette/Vaping Use Never Used 04/14/25 15:24 PHQ-9: PHQ-9 Score PHQ-9: Total score 3 04/14/25 15:30 Depression Screening Interpretation: Negative Thrive Assessment: Date of Thrive Assessment Date Thrive assessed 07/18/24 04/14/25 15:24 Currently or been in a relationship where the following occur: No concerns reported Coding Level of Care Code Est Pt Level 4 (15127) Diagnoses Diabetes E11.9 Acute bilateral low back pain with bilateral sciatica M54.42; M54.41 Chronicity: acute Sciatica laterality: bilateral sciatica Tinea B35.9 Additional Codes PHQ-9 - 59059 - PHQ-9 Billing: Yes ([id number]) Assessment & Plan Assessment & Plan (1) Diabetes: Code(s): E11.9 - Type 2 diabetes mellitus without complications Category: Medical (2) Bilateral low back pain with sciatica: Code(s): M54.40 - Lumbago with sciatica, unspecified side Category: Medical Qualifiers: Chronicity: acute Sciatica laterality: bilateral sciatica Qualified Code(s): M54.42 - Lumbago with sciatica, left side; M54.41 - Lumbago with sciatica, right side (3) Tinea: Code(s): B35.9 - Dermatophytosis, unspecified Category: Medical Plan . Orders: Orders Complete Blood Count Auto Diff Today E11.9 - Type 2 diabetes mellitus without complications TSH reflex Free T4 Today E11.9 - Type 2 diabetes mellitus without complications Lipid Panel Today E11.9 - Type 2 diabetes mellitus without complications Hemoglobin A1c Today E11.9 - Type 2 diabetes mellitus without complications PT Evaluation and Treatment Today M54.41 - Lumbago with sciatica, right side, M54.42 - Lumbago with sciatica, left side Comprehensive [place]. Panel Fast Today E11.9 - Type 2 diabetes mellitus without complications UA CC w/rflx Micro + Cult Today E11.9 - Type 2 diabetes mellitus without complications Medications: New ketoconazole 2% 1 appl topical BID 60 grams 0RF
[2025-04-14 16:12] VITALS: PULSE 94
--- OUTSIDE RECORDS SUMMARY | 2025-04-14 16:53 | XMS_ITS | Clinical Summary ---
Author Organization [employer] Address [address] [place] [address] Care Team Providers Care Transition Mgr Rn Name Role Phone Unavailable Primary Care Provider Unavailabl e Allergies No known active allergies Medications ibuprofen 600 MG tabletIndications :Symptomatic irreversible pulpitis Take 1 tablet (600 mg) by mouth every 6 (six) hours if needed for mild pain for up to 30 doses. 30 tablet 3 Active Sodium Fluoride (Sodium Fluoride 5000 Plus) 1.1 % creamIndications: Dental caries [place] teeth for 2 minutes, morning and night. [...] DENTAL - HSN PARTIAL (MEDICAID) [place] [address] [place] [address] [place] [address] [place] [address]
== END 2025-04-14 16:07 | disposition home or self-care (01) ==
LOC: HO.HMCC 15:20
PROVIDERS: PCP Nurse Practitioner Family; Visit Provider Nurse Practitioner Family
DX: E11.9 Type 2 diabetes mellitus without complications (principal); M54.42 Lumbago with sciatica, left side; M54.41 Lumbago with sciatica, right side; B35.9 Dermatophytosis, unspecified

== ENCOUNTER → 2025-04-14 15:19 | Outpatient (BNVA) | payer OTHER, SELFPAY | PROVIDERS: PCP Nurse Practitioner Family; Visit Provider Nurse Practitioner Family | DX: E11.9 Type 2 diabetes mellitus without complications (principal); M54.41 Lumbago with sciatica, right side; M54.42 Lumbago with sciatica, left side; B35.9 Dermatophytosis, unspecified | CPT/HCPCS: 96127 ==

== ENCOUNTER 2025-06-17 06:56 | Outpatient (AMB) | payer OTHER, SELFPAY ==
--- OUTSIDE RECORDS SUMMARY | 2025-06-17 07:00 | XMS_ITS | Clinical Summary ---
[facility] Address [address] [place] [address] Care Team Providers Care Accident Examiner Name Role Phone Unavailable Primary Care Provider [...] Cervical Cancer Screening: P ap Smear 2019 HIV Screening 09/24/2022 Hepatitis C Screening 09/24/2022 Social Influencers of Health Screening 09/24/2022 COVID-19 Vaccine (1 - 2023-2 5 season) 2024 Depression Screening 10/23/2024 Influenza Vaccine (#1) 2025 HIB Vaccines Aged Out No longer [...]
--- OUTSIDE RECORDS SUMMARY | 2025-06-17 07:00 | XMS_ITS | Clinical Summary ---
Author Organization [employer] Address [address] [place] [address] Care Team Providers Care Livestock Ranch Hand Name Role Phone Unavailable Primary Care Provider Unavailabl e Allergies No known active allergies Medications ibuprofen 600 MG tabletIndications :Symptomatic irreversible pulpitis Take 1 tablet (600 mg) by mouth every 6 (six) hours if needed for mild pain for up to 30 doses. 30 tablet 3 Active Sodium Fluoride (Sodium Fluoride 5000 Plus) 1.1 % creamIndications: Dental caries [place] teeth for 2 minutes, morning and night. [...] season) 2024 07/30/2021, 07/09/2021 Influenza Vaccine (#1) 2025 , 10/13/2021, 09/23/2016, Additional history exists Dental [...] - HSN PARTIAL (MEDICAID) [place] [address] [place] [address] [place] [address] [place] [address]
--- OUTSIDE RECORDS SUMMARY | 2025-06-17 07:00 | XMS_ITS | Clinical Summary ---
Author Organization [facility] Address [address] [place] [address] Care Team Providers Care Windows Security Analyst Name Role Phone Unavailable Primary Care [...] Visual Foot Exam 03/28/2022 Influenza Vaccine (#1) 2025 Pneumococcal Vaccine: Peds ( 0 to 5 Years) and At-Risk Patients (6 to 49 Years) Aged Out No longer eligible b ased on patient's age to complete this topic Insurance [employer] Medicaid
--- NOTE | 2025-06-17 07:59 | MHC.PC.OV ---
Intake Visit Reasons: Discuss medication Allergies No Known Allergies Allergy (Verified 04/14/25 16:15) Medication List - Last Reconciled 06/17/25 by DEONTE Toure-SANGEETHA atorvastatin 10 mg PO BEDTIME blood sugar diagnostic (FreeStyle Lite Strips) Test blood sugar once a day blood-glucose meter (FreeStyle Lite Meter kit) As directed cetirizine 10 mg PO DAILY PRN clotrimazole-betamethasone 1-0.05 % 1 appl topical BID epinephrine (EpiPen) 0.3 mg (0.3 mL) IM Q10M PRN hydrochlorothiazide 25 mg PO DAILY ibuprofen 600 mg PO Q6H PRN lancets (FreeStyle Lancets) Test blood sugar once a day losartan 25 mg PO DAILY Tobacco use date assessed: 04/14/25 Dental Screening Dental Screen Date: 04/14/25 HPI Discuss medication HPI Details History of Present Illness The patient is a 24-year-old female presenting for a follow-up on diabetes management. She denies experiencing polyuria, polydipsia, or neuropathy, which are common symptoms associated with diabetes. The patient is also obese, with a BMI of 43.8, classifying her as morbidly obese. The patient has been actively working on her diet, having successfully eliminated soda from her daily intake, which previously included at least three cans per day. She has an upcoming researcher appointment for an eye exam as part of her preventative care routine. Review of Systems - Endocrine: Denies polyuria, polydipsia - Neurological: Denies neuropathy -denies any hx of pancreatitis or thyroid carcinoma Plan 1. Diabetes Mellitus The patient will be started on a GLP-1 agonist to aid in diabetes management and weight loss. She is encouraged to continue dietary modifications and to have her laboratory tests done in the near future. 2. Obesity The patient's obesity is being addressed with the initiation of a GLP-1 agonist, which is expected to assist in weight reduction. She is advised to maintain her dietary changes, particularly the elimination of soda, to support weight loss efforts. Discussion Notes I discussed with the patient the benefits of starting a GLP-1 agonist for both diabetes management and weight loss. We reviewed her dietary changes, emphasizing the positive impact of eliminating soda from her diet. I advised her to complete her laboratory tests soon and to attend her upcoming researcher appointment for an eye exam. Patient Instructions - Start the prescribed GLP-1 agonist as directed. - Continue with dietary changes, especially avoiding soda. - Schedule and complete laboratory tests soon. - Attend the upcoming researcher appointment for an eye exam. [facility] Medical History Enlarged tonsils Influenza A Generalized headaches Gestational diabetes mellitus Spotting affecting in first trimester High risk due to history of previous obstetrical problem Scoliosis Renal calculi Surgical History History of oophorectomy, unilateral No pertinent past surgical history Family History Father No problems noted. Mother No problems noted. Paternal Grandmother Breast cancer Social History Housing: Apartment Alcohol intake: never Patient Tobacco Use Status: Never used Tobacco e-Cigarette/Vaping Use: Never Used Second Hand Smoke Exposure: No service: No Current occupational status: employed Current occupation: [employer] Current occupational exposures/hazards: No Cognitive needs: No Hearing needs: No Vision needs: No Questionnaire Thrive Questionnaire Date Thrive assessed: 04/14/25 I am a: Patient What is your living situation today?: I have a steady place to live Within the past 12 months, did the food you bought not last and you didn't have the money to get more?: Never true Within the past 12 months, did you worry whether your food would run out before you got money to buy more?: Never true Do you have trouble paying for medicines?: No Do you have trouble getting transportation to medical appointments?: No Do you have trouble paying your heating and electricity bill?: No Do you have trouble taking care of your child, family member or friend?: No Do you have trouble with day-to-day activities such as bathing, preparing meals, shopping, managing finances, etc.?: No Are you currently unemployed and looking for a job?: No Are you interested in more education?: No Please select the resources that you would like help with: None Currently or been in a relationship where the following occur: No concerns reported THRIVE Score: 0 BRANDON-7 AMB Questionnaire BRANDON-7 Date BRANDON - 7 assessed: 07/18/24 Source: Developed by Drs. Eulalio Nicole, Khalida Martinez, Marshall Mcqueen and colleagues, with an educational natalee from [employer]. Physical exam (Primary Care) Tobacco/Smoking Status: Tobacco use Status Tobacco use date assessed 04/14/25 04/14/25 15:24 Patient Tobacco Use Status Never used Tobacco 04/14/25 15:24 e-Cigarette/Vaping Use Never Used 04/14/25 15:24 Thrive Assessment: Date of Thrive Assessment Date Thrive assessed 04/14/25 06/04/25 07:07 Currently or been in a relationship where the following occur: No concerns reported Coding Level of Care Code Tele Est Pt Level 3 (68289) Diagnoses Diabetes E11.9 Assessment & Plan Assessment & Plan (1) Diabetes: Code(s): E11.9 - Type 2 diabetes mellitus without complications Category: Medical Plan . Medications: New tirzepatide (Mounjaro) for 4 weeks 2.5 mg (0.5 mL) subcut QWEEK 2 mL 0RF
== END 2025-06-17 11:48 | disposition home or self-care (01) ==
LOC: HO.HMCC 06:57
PROVIDERS: PCP Nurse Practitioner Family; Visit Provider Nurse Practitioner Family
DX: E11.9 Type 2 diabetes mellitus without complications (principal)

== ENCOUNTER 2025-08-09 09:23 | Outpatient (AMB) | payer OTHER, SELFPAY ==
--- OUTSIDE RECORDS SUMMARY | 2025-08-09 09:26 | XMS_ITS | Clinical Summary ---
[facility] Organization [facility] Address [address] [place] [address] Care Team Providers Care Coper Hand Name Role Phone Unavailable Primary Care [...] Screening: P ap Smear 2019 Depression Screening 10/23/2024 COVID-19 Vaccine (1 - 2023-2 5 season) 2025 Influenza Vaccine (#1) 2025 RSV Immunization Adult Patie nts (1 - 1-dose 75+ series) 2073 HIB Vaccines Aged Out No longer eligi [...]
--- OUTSIDE RECORDS SUMMARY | 2025-08-09 09:26 | XMS_ITS | Clinical Summary ---
Author Organization [employer] Address [address] [place] [address] Care Team Providers Care Natural Resources Instructor Name Role Phone Unavailable Primary Care Provider Unavailabl e Allergies No known active allergies Medications ibuprofen 600 MG tabletIndications :Symptomatic irreversible pulpitis Take 1 tablet (600 mg) by mouth every 6 (six) hours if needed for mild pain for up to 30 doses. 30 tablet 3 Active Sodium Fluoride (Sodium Fluoride 5000 Plus) 1.1 % creamIndications: Dental caries [place] teeth for 2 minutes, morning and night. [...] Tobacco Screening 04/26/2024 04/26/2023 COVID-19 Vaccine ( - season) 2025 07/30/2021, 07/09/2021 Influenza Vaccine (#1) 2025 , [...] DENTAL - HSN PARTIAL (MEDICAID) [place] [id number] [place] [id number] [place] [address] [place] [id number]
--- OUTSIDE RECORDS SUMMARY | 2025-08-09 09:26 | XMS_ITS | Clinical Summary ---
Author Organization [facility] Facility Address [address] [place] [address] Care Team Providers Care Shoemaking Cutter Name Role Phone Unavailable Primary Care Provider [...]
[2025-08-09 10:05] VITALS: BP 110/70; PULSE 102; RESP 16; TEMP 36.6; O2SAT 99; BMI 41.2
--- NOTE | 2025-08-09 10:05 | AM.OFFWIN_ITS ---
Intake Vital Signs 08/09/25 10:05 Height 4 ft 11 in Weight 204 lb BMI 41.2 BP 110/70 Blood Pressure Location Rt brachial Position Sitting Respiration 16 Pulse 102 H Pulse Source Pulse Oximeter Temp 97.8 F Temp Source Oral Pulse Oximetry (%) 99 Oxygen Delivery Method Room Air Intake Visit Reasons: EP, possible BV or yeast, itchiness Intake Note: Pt is here today c/o vaginal itchiness and vag. d/c x1week Patient Tobacco Use Status: Never used Tobacco Allergies No Known Allergies Allergy (Verified 04/14/25 16:15) HPI HPI Comments History of Present Illness Details This is a 24-year-old female who presented to the walk-in clinic with multiple complaints. First, patient is concerned about a possible yeast infection or bacterial vaginosis. She states she started with vaginal pruritus about 1 week ago and she had some yellowish discharge. She denies any thick white discharge/drainage or malodorous drainage. She reports some mild dysuria and some urinary frequency with decreased urine volume but denies any urinary urgency or hematuria. Patient states she is due to get her period and her discharge turned a brown-srinivas color a few days ago. She reports as possible as she and her have been trying for a baby but she denies any concern for STIs. She denies any flank pain, fevers or chills, abdominal or pelvic pain, or nausea/vomiting. Second, patient has a known slipped disc in her lumbar spine causing sciatica. She has followed up with a specialist who did not recommend surgery but rather recommended symptomatic management with anti-inflammatories and physical therapy. She states she has not received a call from physical therapy yet. She has been having a ?flare? of her sciatica over the past 1 week with pain starting in her right buttock and radiating down her right lower extremity. She denies any new trauma or injury. She denies any numbness or weakness or paresthesias of right lower extremity. She denies any saddle anesthesias. COUNT INCLUDES THE [facility] Medical History Enlarged tonsils Influenza A Generalized headaches Gestational diabetes mellitus Spotting affecting in first trimester High risk due to history of previous obstetrical problem Scoliosis Renal calculi Surgical History History of oophorectomy, unilateral No pertinent past surgical history Family History Father No problems noted. Mother No problems noted. Paternal Grandmother Breast cancer Social History Housing: Apartment Alcohol intake: never Patient Tobacco Use Status: Never used Tobacco e-Cigarette/Vaping Use: Never Used Second Hand Smoke Exposure: No service: No Current occupational status: employed Current occupation: [employer] Current occupational exposures/hazards: No Cognitive needs: No Hearing needs: No Vision needs: No Review of Systems Const All systems reviewed & are unremarkable except as noted in HPI and below Reports no additional complaints Eyes Reports no additional complaints ENT Reports no additional complaints Card Reports no additional complaints Resp Reports no additional complaints GI Reports no additional complaints Reports no additional complaints Musc Reports no additional complaints Skin/Breast Reports system reviewed and no additional complaints, except as documented Neuro Reports no additional complaints Psych Reports no additional complaints Endo Reports no additional complaints Lexa/Lymph Reports no additional complaints Aller/Immun Reports no additional complaints Physical Exam Exam Exam: Vital signs reviewed. Constitutional: Non-toxic appearing. No acute distress. Well-developed and well-nourished. HEENT: Normocephalic and atraumatic. EOMI. Skin: Warm and dry. No rashes or lesions noted. Neck: Full and painless range of motion. Cardio: Regular rate. No lower extremity edema. No JVD. Pulmonary: No respiratory distress. No accessory muscle usage. Gastrointestinal: Soft, nontender, and nondistended in all 4 quadrants. Genitourinary: No CVA tenderness. Musculoskeletal: Normal range of motion in joints throughout the body. No deformity or other signs of injury. Neuro: Alert and oriented x4. Cranial nerves 2-12 grossly intact. No focal deficits appreciated. Psych: Normal mood and affect. Vital Signs: Last Vital Signs Temp 97.8 F 08/09/25 10:05 Pulse 102 H 08/09/25 10:05 Resp 16 08/09/25 10:05 BP 110/70 08/09/25 10:05 Pulse Ox 99 08/09/25 10:05 Oxygen Delivery Method Room Air 08/09/25 10:05 BMI result Body Mass Index 41.2 Results AMB Urinalysis, Automated UA Leukoctes 0 Mary Carmen/uL Last Edit by Ronit Antonio CMA on 08/09/25 10:29 UA Nitrite Negative Last Edit by Ronit Antonio, JUDITH on 08/09/25 10:29 UA Urobilinogen 0.2 mg/dL Last Edit by Ronit Antonio, JUDITH on 08/09/25 10:29 UA Protein 15 mg/dL Last Edit by Ronit Antonio, JUDITH on 08/09/25 10:29 UA pH 6.0 Last Edit by Ronit Antnoio, JUDITH on 08/09/25 10:29 UA Blood 200 Neymar/uL Last Edit by Ronit Antonio, JUDITH on 08/09/25 10:29 UA Specific [place] 1.015 Last Edit by Ronit Antonio, JUDITH on 08/09/25 10:29 UA Ketone Negative Last Edit by Ronit Antonio CMA on 08/09/25 10:29 UA Bilirubin 1 mg/dL Last Edit by Ronit Antonio, JUDITH on 08/09/25 10:29 UA Glucose 0 mg/dL Last Edit by Ronit Antonio, JUDITH on 08/09/25 10:29 AMB Test Urine AMB Test Urine Negative Last Edit by Ronit Antonio CMA on 10:31 Assessment & Plan Assessment & Plan (1) Vaginal itching: Code(s): N89.8 - Other specified noninflammatory disorders of vagina Plan: This is a 24-year-old female who presented to the walk-in clinic complaining of vaginal pruritus and discharge x1 week. She reports some mild dysuria and increased urinary frequency, which seems to be improving. Patient underwent a POCT urinalysis, which showed 3+ blood (consistent with menstruation) but neg ative for nitrites or leukocyte esterase of urinary tract infection is unlikely. She also underwent a test, which was negative. A BV panel was sent and patient will be called with the results. For now, we will hold off on antibiotic treatment for BV and hold off on antifungal treatment for candidiasis given patient's symptoms are not classic for either and will wait for results. She was advised to follow-up here or proceed to the emergency room for persistent or worsening symptoms such as dysuria, hematuria, urinary frequency, urinary urgency, flank/back pain, nausea/vomiting, or abdominal/pelvic pain. (2) Sciatica: Code(s): M54.30 - Sciatica, unspecified side Qualifiers: Laterality: right Qualified Code(s): M54.31 - Sciatica, right side Plan: Patient is also complaining of a flare-up of her sciatica from known lumbar stenosis and slipped disc. She states her pain is affecting her daily function and she is unable to perform activities daily living or care for her daughter due to her pain. Patient's primary care physician has given her prednisone in the past with good relief. Patient was given p.o. prednisone 40 mg daily x5 days for anti-inflammatory treatment and she was recommended to continue symptomatic management such as ibuprofen/acetaminophen, heat/ice to the area, and rest/activity modification. She was also given a new referral for physical therapy as she has not received a call to make an appointment. Orders: Orders PT Evaluation and Treatment Today M54.30 - Sciatica, unspecified side Bacterial Vaginosis Panel Today N89.8 - Other specified noninflammatory disorders of vagina AMB Urinalysis Automated Today Z13.9 - Encounter for screening, unspecified AMB HCG Urine Test Today Z32.02 - Encounter for test, result negative Medications: New prednisone 40 mg (2 x 20 mg) PO DAILY 10 tabs 0RF Coding Level of Care Code Est Pt Level 4 (48592) Diagnoses Vaginal itching N89.8 Sciatica of right side M54.31 Laterality: right
== END 2025-08-09 10:52 | disposition home or self-care (01) ==
PROVIDERS: PCP Nurse Practitioner Family; Visit Provider Physician Assistant Medical
DX: M54.31 Sciatica, right side (principal); N89.8 Other specified noninflammatory disorders of vagina; Z32.02 Encounter for pregnancy test, result negative

== ENCOUNTER 2025-08-09 09:23 | Outpatient (REF) | payer OTHER, SELFPAY ==
[2025-08-09 13:41] LABS: MANUAL DIFF FLAG NO
[2025-08-09 13:45] LABS: Hematocrit 39.4 % (37.0-47.0); Hemoglobin 13.0 g/dl (12.0-16.0); Imm Gran Abs Auto 0.02 X10*3/uL (0.00-0.03); Imm Gran Pct Auto 0.2 % (0.0-0.4); Lymphocytes Absolute Auto 2.5 X10*3/uL (1.2-4.9); Mean Corpuscular HGB Conc 33.0 g/dl (31.0-35.0); Mean Corpuscular Hemoglobin 28.3 pg (27.0-33.0); Mean Corpuscular Volume 85.7 fL (80.0-98.0); NRBC Abs Auto 0.000 X10*3/uL (0.0-0.012); NRBC Pct Auto 0.0 /100WBC (0.0-0.2); Platelet Count 358 X10*3/uL (160-400); Red Blood Count 4.60 X10*6/uL (4.20-5.50); White Blood Count 9.0 X10*3/uL (4.8-10.8)
[2025-08-09 14:12] LABS: Alanine Aminotransferase 20 U/L (0-31); Albumin Level 4.4 g/dL (3.5-5.0); Alkaline Phosphatase 83 U/L (39-117); Anion Gap 12 (12-20); Aspartate Amino Transferase 23 U/L (5-31); Blood Urea Nitrogen 17 mg/dL (9-16); Calcium 9.3 mg/dL (8.4-10.2); Carbon Dioxide 26 mmol/L (22-29); Chloride 104 mmol/L (96-108); Cholesterol 167 mg/dL (<200); Estimated Glomerular Filt Rate > 60; HDL Cholesterol 42 mg/dL (>40); Potassium 3.4 mmol/L (3.3-5.1); Sodium 139 mmol/L (135-145); Total Protein 7.9 g/dL (6.5-8.0); Triglycerides 73 mg/dL (<150)
[2025-08-10 15:04] LABS: Bacterial Vaginosis PCR NEGATIVE (Negative); Candida Group PCR DETECTED (Not Detect); Candida glab krusei PCR NOT DETECTED (Not Detect); Trichomonas vaginalis PCR NOT DETECTED (Not Detect)
== END 2025-08-09 09:24 | disposition home or self-care (01) ==
LOC: HO.HMGCLDS 09:23
PROVIDERS: Physician Assistant Medical; PCP Nurse Practitioner Family; Visit Provider Nurse Practitioner Family
DX: L29.2 Pruritus vulvae (principal); N89.8 Other specified noninflammatory disorders of vagina; E11.9 Type 2 diabetes mellitus without complications; M54.41 Lumbago with sciatica, right side; R35.0 Frequency of micturition; Z32.02 Encounter for pregnancy test, result negative
CPT/HCPCS: 36415; 80053; 80061; 81003; 81025; 81515; 83036; 84443; 85025

== ENCOUNTER 2025-09-04 16:15 | Outpatient (REF) | payer OTHER, SELFPAY ==
--- NOTE | ~2025-09-04 | US_ITS ---
EXAMINATION: US RETROPERITONEAL LIMITED (RENAL ONLY) CLINICAL INFORMATION: N20.0 - Calculus of kidney. COMPARISON: Ultrasound on July 20, 2024 TECHNIQUE: Real-time imaging of the kidneys. FINDINGS: RIGHT KIDNEY: 9.4 cm in length. The kidney is normal in size, contour, and echogenicity. Renal cortical thickness is normal. Echogenic foci associated with twinkle artifact in the lower pole and midpole, each measuring 0.4 cm, could represent the same nonobstructing calculi described on the previous examination. No hydronephrosis. LEFT KIDNEY: 10.0 in length. The kidney is normal in size, contour, and echogenicity. Renal cortical thickness is normal. No calculi or focal parenchymal lesions. No hydronephrosis. Additional findings: Echogenic liver parenchyma consistent with hepatic steatosis. US/US renal BI IMPRESSION: 1. Nonobstructing right renal calculi. 2. Hepatic steatosis. Electronically signed by: Bety Cerda MD 09/04/2025 05:51 PM [facility]
--- OUTSIDE RECORDS SUMMARY | 2025-09-04 18:49 | XMS_ITS | Clinical Summary ---
Author Organization [facility] Facility Address [address] [place] [address] Care Team Providers Care Defence Intelligence Analyst Name Role Phone Unavailable Primary Care [...]
--- OUTSIDE RECORDS SUMMARY | 2025-09-04 18:49 | XMS_ITS | Clinical Summary ---
Author Organization [facility] Address [address] [place] [address] Care Team Providers Care Supervisor Tank Storage Name Role Phone Unavailable Primary Care Provider [...] Depression Screening 10/23/2024 COVID-19 Vaccine (1 - 2024-2 6 season) 2025 Influenza Vaccine (#1) 2025 RSV [...]
--- OUTSIDE RECORDS SUMMARY | 2025-09-04 18:49 | XMS_ITS | Clinical Summary ---
Author Organization [employer] Address [address] [place] [address] Care Team Providers Care Industrial Equipment Wirer Name Role Phone Unavailable Primary Care Provider Unavailabl e Allergies No known active allergies Medications ibuprofen 600 MG tabletIndications :Symptomatic irreversible pulpitis Take 1 tablet (600 mg) by mouth every 6 (six) hours if needed for mild pain for up to 30 doses. 30 tablet 3 Active Sodium Fluoride (Sodium Fluoride 5000 Plus) 1.1 % creamIndications: Dental caries [place] teeth for 2 minutes, morning and night. [...] DENTAL - HSN PARTIAL (MEDICA[place]) [place] [address] [place] [address] [place] [address] [place] [id number]
== END 2025-09-04 16:16 | disposition home or self-care (01) ==
LOC: HO.US 16:15
PROVIDERS: PCP Nurse Practitioner Family; Visit Provider Nurse Practitioner Family
DX: N20.0 Calculus of kidney (principal)
CPT/HCPCS: 76775

== ENCOUNTER → 2025-09-04 16:16 | Outpatient (BNV) | payer OTHER, SELFPAY | PROVIDERS: PCP Nurse Practitioner Family; Visit Provider Radiology Body Imaging | DX: N20.0 Calculus of kidney (principal) | CPT/HCPCS: 76775 ==

== ENCOUNTER 2025-09-24 07:17 | Outpatient (AMB) | payer OTHER, SELFPAY ==
--- NOTE | 2025-09-24 07:17 | MHC.OFFVIS ---
Intake Visit Reasons: 1Y with imaging Intake Note: Patient presents today for tele visit follow up on: nephrolithiasis and ultrasound results Imaging Completed: Renal ultrasound 09/04/1925 Urology Med:none Antibiotic Allergy: None Blood Thinner: Aspirin Health Record Technician Required: No Accompanied by: Self / Same As Patient Allergies No Known Allergies Allergy (Verified 09/24/25 08:02) Medication List - Last Reconciled 09/24/25 by KIERAN Wray atorvastatin 10 mg PO BEDTIME blood sugar diagnostic (FreeStyle Lite Strips) Test blood sugar once a day blood-glucose meter (FreeStyle Lite Meter kit) As directed cetirizine 10 mg PO DAILY PRN clotrimazole-betamethasone 1-0.05 % 1 appl topical BID epinephrine (EpiPen) 0.3 mg (0.3 mL) IM Q10M PRN hydrochlorothiazide 25 mg PO DAILY ibuprofen 600 mg PO Q6H PRN lancets (FreeStyle Lancets) Test blood sugar once a day losartan 25 mg PO DAILY prednisone 40 mg (2 x 20 mg) PO DAILY tirzepatide 7.5 mg (0.5 mL) subcut QWEEK HPI Comments Details: Fatmata is a very pleasant 24-year-old female patient of Dr. Handy. She has a past medical history of scoliosis, nephrolithiasis, and pre diabetes. She is being followed up on today via video telehealth for nephrolithiasis. In discussion with the patient today she reports to be doing and feeling well. Recent renal imaging results reviewed with the patient today. 09/16 Kayley kidneys are normal in size, contour, and echogenicity. Right lower pole calculi measuring 4 mm. Bilateral kidneys with no hydronephrosis. Left kidney with no renal calculi. She does discuss recently following up with an urgent care for a yeast infections she had been experiencing however has since completed medications and has been feeling well. She currently denies any bothersome urinary issues or concerns. She denies urinary urgency, urinary frequency, incontinence, nocturia, hematuria, dysuria, foul smelling urine, changes to urinary stream, flank pain, fever, and or chills. She is happy with her current voiding parameters. She reports to be drinking plenty of water daily. She otherwise offers no other issues or concerns at this time. PREVIOUS OFFICE NOTE: Nephrolithiasis First-time stone former 07/14 Intervention - 07/14 R USR Composition - 07/14 - combination CaOx with carbonate 35% Imaging - 07/14 CT scan distal right 8 mm ureteric stone - 11/14 renal ultrasound 4 mm right, 2 mm left Therapeutic plan - hydration - interval imaging [facility] Medical History Fatty liver Enlarged tonsils Influenza A Generalized headaches Gestational diabetes mellitus Spotting affecting in first trimester High risk due to history of previous obstetrical problem Scoliosis Renal calculi Surgical History History of oophorectomy, unilateral No pertinent past surgical history Family History Father No problems noted. Mother No problems noted. Paternal Grandmother Breast cancer Social History Housing: Apartment Alcohol intake: never Patient Tobacco Use Status: Never used Tobacco e-Cigarette/Vaping Use: Never Used Second Hand Smoke Exposure: No service: No Current occupational status: employed Current occupation: [employer] Current occupational exposures/hazards: No Cognitive needs: No Hearing needs: No Vision needs: No Review of Systems Const All systems reviewed & are unremarkable except as noted in HPI and below Physical Exam Const General: cooperative, healthy appearing, comfortable, no acute distress, well developed, alert and awake Orientation/consciousness: patient oriented x3 Limitations: no limitations Resp Effort & Inspection: normal respiratory effort and able to speak in complete sentences Neuro General: patient oriented x3 Psych Appearance: grossly normal and well kempt Mental Status: mental status grossly normal Speech and movement: Normal speech and movement present Affect: normal affect Attitude: cooperative Thought content: Normal thought content present Insight: Fair insight present (Psych) Judgement: Fair judgement present (Psych) Telehealth Telehealth Telehealth Platform: [facility] Location of provider rendering services: practice address Location of patient: address on file Patient Identification confirmed using: Name, : Yes Telehealth method: video Patient verbally consented to treatment: Yes Patient verbally consented to billing insurance company: Yes Patient informed of any privacy concerns related to visit: Yes Minutes spent on Phone/Video with Pt.: 15 Results Reviewed Results Reviewed: Date of Service: 09/04/25 Procedure(s): US renal BI FINDINGS: RIGHT KIDNEY: 9.4 cm in length. The kidney is normal in size, contour, and echogenicity. Renal cortical thickness is normal. Echogenic foci associated with twinkle artifact in the lower pole and midpole, each measuring 0.4 cm, could represent the same nonobstructing calculi described on the previous examination. No hydronephrosis. LEFT KIDNEY: 10.0 in length. The kidney is normal in size, contour, and echogenicity. Renal cortical thickness is normal. No calculi or focal parenchymal lesions. No hydronephrosis. Additional findings: Echogenic liver parenchyma consistent with hepatic steatosis. IMPRESSION: 1. Nonobstructing right renal calculi. 2. Hepatic steatosis. Assessment & Plan Assessment & Plan (1) Nephrolithiasis: Code(s): N20.0 - Calculus of kidney Category: Medical Plan Recent renal imaging results reviewed with the patient today; as noted above. She currently denies any bothersome urinary issues or concerns. Discussed, educated, and stressed the importance of adequate hydration relation to nephrolithiasis as well as overall health and well-being. Will questions were answered Continue adding 1 oz of lemon juice to water daily. Will obtain renal ultrasound in 1 year. Follow-up in 1 year with imaging to be completed prior; or sooner with any issues, concerns, and or questions. Orders: Orders US renal BI 1 Year N20.0 - Calculus of kidney Patient Instructions: The patient had an opportunity to ask questions regarding the treatment plan. All questions were answered. Physical exam, labs, and imaging were discussed and reviewed in detail. As well as risks, benefits, and discussion of treatment choices. No major barriers to understanding were identified. The patient expressed understanding and agreement with the above treatment plan. The patient was made aware they should contact our office by phone for worsening of their current condition, the appearance of new symptoms, or with any questions or concerns. Compliance is encouraged with any medications and follow up testing that is ordered. It is a privilege to be allowed the opportunity to participate in? your urological care.? Again, if you have any questions or concerns If you have any questions or concerns please do not hesitate to contact me. The office is [phone]. This note is constructed using voice recognition software. While every effort has been made to ensure accuracy service order dispatcher chief errors may have been included. Yours sincerely, KIERAN Wray Coding Level of Care Code Tele Est Pt Level 3 (04101) Diagnoses Nephrolithiasis N20.0
--- OUTSIDE RECORDS SUMMARY | 2025-09-24 07:18 | XMS_ITS | Clinical Summary ---
Author Organization [employer] Address [address] [place] [address] Care Team Providers Care Workgroup Leader Name Role Phone Unavailable Primary Care Provider Unavailabl e Allergies No known active allergies Medications ibuprofen 600 MG tabletIndication s:Symptomatic irreversible pulpitis Take 1 tablet (600 mg) by mouth every 6 (six) hours if needed for mild pain for up to 30 doses. 30 tablet 02/24/20 23 Active Sodium Fluoride (Sodium Fluoride 5000 Plus) 1.1 % creamIndications :Dental caries Rew teeth for 2 minutes, morning and night. Spit, do not rinse. Do not eat or drink anything for 30 minutes following brushing. 51 g 11 04/04/20 23 Active Mounjaro 2.5 MG/0.5ML solution auto-injector INJECT ONE PEN (=2.5MG) SUBCUTANEOUSLY ONCE A WEEK DIRECTED 07/10/20 25 Active Encounters Date Type Department Care Team Description 09/15/2025 10:00 AM EST Office Visit [facility] [address] [place] [address] Marcio Cantu Encounter for dental examination (Primary Dx) from Last 3 Months Social History Tobacco Use Types Packs/Day Years [...] Sign Reading Time Taken Comments Blood Pressure 122/80 09/15/2025 10:43 AM EST Pulse 104 03/08/2023 8:04 AM EDT Temperature - - Respiratory Rate - - Oxygen Saturation - - Inhaled Oxygen Concentration - - Weight - - Height - - Body Mass Index - - Plan of Treatment Upcoming Encounters Date Type Department Care Team (Late st Contact Info) Description 09/30/2025 8:00 AM EST Office Visit [facility] [address] [place] [address] Health Maintenance Due Date Last Done Comments [...] Exam 10/04/2023 04/03/2023 Dental Prophylaxis 10/04/2023 04/03/2023 COVID-19 Vaccine ( season) 2025 07/30/2021, 07/09/2021 Influenza Vaccine (#1) 2025 , 10/13/2021, 09/23/2016, Additional history exists Dental X-Ray: Full Mouth 04/04/2026 04/03/2023 Tobacco Screening 09/15/2026 09/15/2025 Dental X-Ray: Bitewings 09/16/2026 09/15/20 25, 04/03/2023, 02/23/2023 DTaP/Tdap/Td Vaccines (2 - Td or Tdap) 07/20/2031 07/20/2021 Zoster Vaccines (1 of 2) 2048 RSV Patients and Patients Aged 60 years or older (1 - 1-dose 75+ series) 2073 Meningococcal Vaccine Completed 09/23/2016, 016 Pneumococcal Vaccine: Pediatrics (0 to 5 Years) and At-Risk Patients (6 to 49) Years Aged Out 07/18/2024 No longer eligible based on patient's age to complete this topic HIB Vaccines Aged Out No longer eligi [...] Procedure Name Priority Date/Time Associated Diagnosis Comments INTRAORAL - PERIAPICAL FIRST RADIOGRAPHIC IMAGE Routine 09/15/2025 10:00 AM EST BITEWING - SINGLE RADIOGRAPHIC IMAGE Routine 09/15/2025 10:00 AM EST CASE PRESENTATION, DETAILED AND EXTENSIVE TREATMENT PLANNING Routine 09/15/2025 10:00 AM EST LIMITED ORAL EVALUATION - PROBLEM FOCUSED Routine 09/15/2025 10:00 AM EST PROPHYLAXIS - ADULT Routine 04/03/2023 1 :00 [...]
--- OUTSIDE RECORDS SUMMARY | 2025-09-24 07:19 | XMS_ITS | Clinical Summary ---
Author Organization [facility] Address [address] [place] [address] Care Team Providers Care Perishable Freight Inspector Name Role Phone Unavailable Primary Care [...]
--- OUTSIDE RECORDS SUMMARY | 2025-09-24 07:19 | XMS_ITS | Clinical Summary ---
Author Organization [facility] Facility Address [address] [place] [id number] Care Team Providers Care Set Off Blocker Name Role Phone Unavailable Primary Care Provider [...]
== END 2025-09-24 08:12 | disposition home or self-care (01) ==
LOC: HO.HUSH 07:17
PROVIDERS: PCP Nurse Practitioner Family; Visit Provider Nurse Practitioner Family
DX: N20.0 Calculus of kidney (principal)
CPT/HCPCS: 99213